=== PATIENT | female | born 1960 | race Caucasian/White ===

== ENCOUNTER → 2018-03-23 07:12 | Outpatient (CLI) | payer BC, SELFPAY | PROVIDERS: Visit Provider Physician Assistant | DX: M17.12 Unilateral primary osteoarthritis, left knee (principal) | CPT/HCPCS: 73721 ==

== ENCOUNTER 2021-09-15 12:46 | Outpatient (CLI) | payer BC, SELFPAY ==
--- NOTE | 2021-09-15 12:51 | BI_ITS ---
MAMMOGRAPHY - BILATERAL SCREENING REASON FOR EXAM: Female, 61 years old. Routine annual screening examination. PERTINENT HISTORY: Non-contributory. Remote left breast biopsy. TECHNIQUE: Digital bilateral breast reggie (3D mammographic acquisition) in the CC and MLO projections. 2-D mediolateral oblique (MLO) and craniocaudad (CC) views of both breasts were obtained. CAD: Full Field Digital Mammography with Computer Added Detection was performed. COMPARISON: Comparison is made with prior examination dated 11/16/2014. FINDINGS: Breast Composition: The breasts are almost entirely fatty. There are no dominant masses or suspicious calcifications. No other significant abnormalities are identified. There has been no significant change since the prior study. BI/SCRN MAMM (CAD)W/REGGIE BILAT IMPRESSION: Stable bilateral screening mammogram. Yearly follow-up mammogram recommended. (A) ASSESSMENT CATEGORY: BIRADS Category 1: Negative. A letter regarding these results will be sent to the patient by the facility within 30 days. Approximately 10% of breast cancers are not detected by mammography. A normal mammogram should not delay biopsy of a clinically suspicious abnormality. [id number] Electronically Signed: Kit Cortés MD at 14:33 EST ,
--- NOTE | 2021-09-15 13:31 | BD_ITS ---
STUDY: DUAL ENERGY X-RAY ABSORPTIOMETRY / DXA REASON FOR EXAM: Female, 61 years old. [id number]. The patient is postmenopausal. TECHNIQUE: Bone Mineral Density (BMD) measurements of lumbar spine and bilateral hips were obtained. COMPARISON: None. FINDINGS: Lumbar Spine (L1-L4): g/cm2 (0.844) / T-score (-1.8) / Z-score (-0.4) Findings are suggestive of osteopenia with a moderate fracture risk. Left Femur Total: g/cm2 (0.780) / T-score (-1.3) / Z-score (-0.3) Left Femoral Neck: g/cm2 (0.681) / T-score (-1.5) / Z-score (-0.2) Right Femur Total: g/cm2 (0.752) / T-score (-1.6) / Z-score (-0.6) Right Femoral Neck: g/cm2 (0.623) / T-score (-2.0) / Z-score (-0.7) BD/Dexa Bone Density Study IMPRESSION: The patient is considered osteopenic as outlined below according to World [employer] Organization (WHO) criteria with a moderate fracture risk. Reference Information: The T-score is the number of standard deviations above or below the standard which is normal for young adults at their peak bone mineral density. The World Health Organization (WHO) interprets the T-scores as follows: Above -1 Normal bone density Between -1 and -2.5 Osteopenia Equal to / or below -2.5 Osteoporosis As a practical clinical guideline, osteopenia may be graded as follows: Mild -1 through -1.5 Moderate -1.6 through -2.0 Severe -2.1 through -2.4 The Z-score is the number of standard deviations above or below age-matched controls. A Z-score of less than -1.5 would be considered abnormal. References: 1. NIH Osteoporosis and Related Bone Diseases www osteo.org 2. International Society for Clinical Densitometry www iscd.org 3. National Osteoporosis Foundation www nof.org Electronically Signed: Kit Cortés MD at 8:23 EST ,
== END 2021-09-15 23:59 | disposition home or self-care (01) ==
LOC: OPBD 12:47
PROVIDERS: PCP Internal Medicine; Visit Provider Internal Medicine
DX: Z12.31 Encounter for screening mammogram for malignant neoplasm of breast (principal); Z78.0 Asymptomatic menopausal state
CPT/HCPCS: 77063; 77067; 77080

== ENCOUNTER → 2022-08-17 | Outpatient (CLI) | payer BC, SELFPAY ==
--- NOTE | 2022-08-17 08:14 | EKG12_ITS ---
Test Reason : PRE OP Blood Pressure : / mmHG Vent. Rate : 075 BPM Atrial Rate : 075 BPM P-R Int : 164 ms QRS Dur : 084 ms QT Int : 390 ms P-R-T Axes : 051 002 045 degrees QTc Int : 435 ms Normal sinus rhythm Normal ECG Confirmed by ESTELA ROOT, MARIAA ([id number]), makeup editor CHEL WALLER ([id number]) on 08/18/2022 12:55:48 PM Referred By: BRAYDEN Confirmed By:MARIAA PALMER MD
[2022-08-17 09:36] LABS: Absolute Lymphocyte Count 1.39 X10^3/uL (0.83-4.51); Absolute Neutrophil Count 3.8 X10^3/uL (2.0-7.7); Basophil# 0.03 X10^3/uL; Basophil% 0.5 % (0-1); Eosinophil# 0.12 X10^3/uL; Hematocrit 38.6 % (37-47); Hemoglobin 12.6 g/dL (12.0-15.0); Lymphocyte # 1.39 X10^3/ul (0.83-4.51); Lymphocyte % 23.6 % (19-41); Mean Corp Hgb Conc 32.6 g/dL (32-36); Mean Corpuscular Hgb 32.1 pg (27.0-32.0); Mean Corpuscular Volume 98.5 fL (81-99); Mean Platelet Vol. 11.4 fl (6.2-12.0); Monocyte# 0.53 X10^3/uL; NRBC Flagged by Analyzer 0 % (0-5); Neutrophil # 3.79 X10^3/uL (2.7-7.7); Neutrophil % 64.6 % (47-70); Platelet Count 211 K/mm3 (150-450); RBC Distribution Width CV 11.6 % (11.6-14.6); RBC Distribution Width SD 42.1 fl (35.1-43.9); Red Blood Count 3.92 M/mm3 (4.2-5.4); White Blood Count 5.9 K/mm3 (4.4-11.0)
[2022-08-17 10:08] LABS: Anion Gap 7 (5-15); BUN 22 mg/dL (7-18); BUN/Creat Ratio 21.6 RATIO (10-20); Calcium,Total 8.6 mg/dL (8.5-10.1); Chloride 105 mmol/L (98-107); Creatinine, Serum 1.02 mg/dL (0.55-1.02); EST Glomerular Filtration Rate 58 mL/min (>60); Est Glom Filt Rate - Afr Amer 71 mL/min (>60); Glucose 82 mg/dL (74-106); Sodium Level 139 mmol/L (136-145)
== END | disposition home or self-care (01) ==
LOC: PSN 08:13
PROVIDERS: PCP Internal Medicine; Visit Provider Student in an Organized Health Care Education/Training Program
DX: Z01.818 Encounter for other preprocedural examination (principal); Z01.810 Encounter for preprocedural cardiovascular examination
CPT/HCPCS: 36415; 80048; 85025; 93005

== ENCOUNTER → 2022-09-05 | Outpatient (CLI) | payer BC, SELFPAY ==
--- NOTE | 2022-09-05 08:54 | US_ITS ---
STUDY: ABDOMINAL ULTRASOUND - RIGHT UPPER QUADRANT REASON FOR VISIT: Female, 62 years old PREOP, ELEVATED LFT''S TECHNIQUE: Ultrasound evaluation of the right upper quadrant was performed with real-time and static nuno-scale imaging. TECHNICAL QUALITY: Adequate. COMPARISON: None. FINDINGS: Liver: The liver measures 17.8 cm. There is increased echogenicity consistent with fatty infiltration. The bile ducts are within normal limits. There is hepatic color flow. The direction of portal flow is hepatopetal. There is no demonstrated mass lesion. Gallbladder: The patient is status post cholecystectomy. Common Bile Duct (C.B.D.): The common bile duct measures 7.3 mm. Pancreas: There is nonvisualization of the pancreas due to overlying bowel gas. Right Kidney: Normal size of the right kidney. The right kidney measures 8.7 cm x 5 cm x 3.5 cm. Normal renal cortex. The right cortex measures 1.0 cm. There is no demonstrated renal mass or cyst. There is no right hydronephrosis. US/Abdomen Limited IMPRESSION: Hepatomegaly and fatty infiltration of the liver. Electronically Signed: Kit Cortés MD at 11:06 EST ,
== END | disposition home or self-care (01) ==
LOC: US 08:51
PROVIDERS: PCP Internal Medicine; Referring Provider Internal Medicine; Visit Provider Internal Medicine
DX: R74.8 Abnormal levels of other serum enzymes (principal); R31.0 Gross hematuria
CPT/HCPCS: 76705

== ENCOUNTER → 2022-09-09 | Outpatient (CLI) | payer BC, SELFPAY ==
--- NOTE | 2022-09-09 07:56 | US_ITS ---
INDICATION: MICROSCOPIC HEMATURIA EXAMINATION: Ultrasound US Kidney(s) complete (eg, kidneys and bladder) TECHNIQUE: Woodward scale and color doppler images were obtained of the kidneys. COMPARISON: None. FINDINGS: RIGHT KIDNEY: The right kidney measures 9.4 x 4.5 x 3.7 cm. The renal cortex measures 1.4 cm.. There is no definite hydronephrosis. There are 2 small echogenic shadows in the mid pole and lower pole of right kidney measuring about 5 x 3 mm consistent with small stones. LEFT KIDNEY: The left kidney measures 12.2 x 4.9 x 5.4 cm. The renal cortex measures 1.7 mm.. There is mild prominence of the left pelvicalyceal system. There is a 6 mm echogenic shadow/stone in the midpole of the left kidney. URINARY BLADDER: The bladder is not well distended and has a calculated prevoid volume of 141 cc. US/Kidney and Bladder IMPRESSION: 1. Small bilateral renal stones. 2. Mild prominence of the left pelvicalyceal system 3. CT scan of the abdomen pelvis might be further value. Electronically Signed: Nick Ramos MD at 12:13 EST ,
== END | disposition home or self-care (01) ==
LOC: US 07:53
PROVIDERS: PCP Internal Medicine; Referring Provider Internal Medicine; Visit Provider Internal Medicine
DX: R74.8 Abnormal levels of other serum enzymes (principal); R31.0 Gross hematuria
CPT/HCPCS: 76770

== ENCOUNTER → 2023-06-12 | Outpatient (CLI) | payer OTHER, SELFPAY ==
--- NOTE | 2023-06-12 10:32 | MRI_ITS ---
MRI Abdomen w/ and w/out contrast 06/12/2023 11:07 AM COMPARISON: None CLINICAL HISTORY: hepatic lesion, clinical indication: liver lesion, and gt;1cm, US nondi, ATTENTINO LIVER TECHNIQUE: Multiplanar T1 and T2 weighted, diffusion and dynamic post-gadolinium images were obtained through the abdomen before and after administration of 18 cc of IV Clariscan. FINDINGS: Liver: 1.6 cm and a smaller 7 mm T2 hyperintense lesions in the hepatic dome demonstrate progressive nodular centripetal enhancement consistent with hemangioma. Gallbladder: Unremarkable Pancreas: Unremarkable Spleen: Unremarkable Adrenal Glands: Unremarkable Kidneys: Simple nonenhancing 4.1 cm cyst in the left kidney. GI Tract: Unremarkable Lymphadenopathy: Absent Reproductive: Unremarkable Bladder: Unremarkable Ascites: Absent Bones: No suspicious lesions MRI/MRI Abd WITH and W/O Contrast IMPRESSION: 1.6 cm and 0.7 cm hepatic hemangiomas in the dome of the liver. Electronically Signed: Rolando Reid MD at 23:11 EST ,
[2023-06-12 11:06] LABS: CREATININE FINGERSTICK 1.3 mg/dL (0.55-1.02)
== END | disposition home or self-care (01) ==
PROVIDERS: PCP Internal Medicine; Referring Provider Internal Medicine; Visit Provider Internal Medicine
DX: K76.9 Liver disease, unspecified (principal)
CPT/HCPCS: 74183; A9575

== ENCOUNTER → 2023-11-29 | Outpatient (CLI) | payer OTHER, SELFPAY ==
--- NOTE | 2023-11-29 09:26 | BI_ITS ---
MAMMOGRAPHY - BILATERAL SCREENING REASON FOR EXAM: Female, 63 years old. Routine annual screening examination. PERTINENT HISTORY: Non-contributory. Prior left breast needle biopsy. TECHNIQUE: Digital bilateral breast reggie (3D mammographic acquisition) in the CC and MLO projections. 2-D mediolateral oblique (MLO) and craniocaudad (CC) views of both breasts were obtained. CAD: Full Field Digital Mammography with Computer Added Detection was performed. COMPARISON: Comparison is made with prior study dated September 15, 2021. FINDINGS: Breast Composition: There are scattered areas of fibroglandular density. There are no dominant masses or suspicious calcifications. No other significant abnormalities are identified. There has been no significant change since the prior study. BI/SCRN MAMM (CAD)W/REGGIE BILAT IMPRESSION: Stable bilateral screening mammogram. Yearly follow-up mammogram recommended. (A) ASSESSMENT CATEGORY: BIRADS Category 1: Negative. A letter regarding these results will be sent to the patient by the facility within 30 days. Approximately 10% of breast cancers are not detected by mammography. A normal mammogram should not delay biopsy of a clinically suspicious abnormality. [id number] Electronically Signed: Kit Cortés MD at 10:53 EDT ,
--- NOTE | 2023-11-29 09:28 | BD_ITS ---
STUDY: DUAL ENERGY X-RAY ABSORPTIOMETRY / DXA REASON FOR EXAM: Female, 63 years old. 733.00OsteoporosisBONE DENSITY REASON FOR EXAM TECHNIQUE: Bone Mineral Density (BMD) measurements of lumbar spine and bilateral hips were obtained. COMPARISON: Comparison is made with prior study dated September 15, 2021. FINDINGS: Lumbar Spine (L1-L4): g/cm2 (0.771) / T-score (-2.2) / Z-score (-0.6) Findings are suggestive of osteopenia with a high fracture risk. Left Femur Total: g/cm2 (0.769) / T-score (-1.4) / Z-score (-0.3) Left Femoral Neck: g/cm2 (0.757) / T-score (-0.8) / Z-score (0.6) Right Femur Total: g/cm2 (0.721) / T-score (-1.8) / Z-score (-0.7) Right Femoral Neck: g/cm2 (0.706) / T-score (-1.3) / Z-score (0.1) The T-Scores on the most recent prior examination were: Lumbar Spine (L1-L4): There has been worsening of bone density since the previous examination. Left Femur Total: which represents a worsening of 1.4%. Right Femur Total: which represents a worsening of 4.1%. BD/Dexa Bone Density Study IMPRESSION: The patient is considered osteopenic as outlined below according to World [place] Organization (WHO) criteria with a high fracture risk. There has been worsening of bone density since the previous examination. Reference Information: The T-score is the number of standard deviations above or below the standard which is normal for young adults at their peak bone mineral density. The World Health Organization (WHO) interprets the T-scores as follows: Above -1 Normal bone density Between -1 and -2.5 Osteopenia Equal to / or below -2.5 Osteoporosis As a practical clinical guideline, osteopenia may be graded as follows: Mild -1 through -1.5 Moderate -1.6 through -2.0 Severe -2.1 through -2.4 The Z-score is the number of standard deviations above or below age-matched controls. A Z-score of less than -1.5 would be considered abnormal. References: 1. NIH Osteoporosis and Related Bone Diseases www osteo.org 2. International Society for Clinical Densitometry www iscd.org 3. National Osteoporosis Foundation www nof.org Electronically Signed: Kit Cortés MD at 9:55 EDT ,
== END | disposition home or self-care (01) ==
PROVIDERS: PCP Internal Medicine; Referring Provider Internal Medicine; Visit Provider Internal Medicine
DX: Z12.31 Encounter for screening mammogram for malignant neoplasm of breast (principal); Z78.0 Asymptomatic menopausal state
CPT/HCPCS: 77063; 77067; 77080

== ENCOUNTER → 2024-04-28 | Outpatient (CLI) | payer OTHER, SELFPAY ==
--- NOTE | 2024-04-28 08:59 | US_ITS ---
STUDY: ABDOMINAL ULTRASOUND - RIGHT UPPER QUADRANT; ELASTOGRAPHY REASON FOR VISIT: Female, 63 years old. Fatty infiltration of the liver. TECHNIQUE: Ultrasound evaluation of the right upper quadrant was performed with real-time and static nuno-scale imaging. Point quantification shear wave elastography was performed ([employer]). TECHNICAL QUALITY: Adequate. COMPARISON: Comparison is made with prior study dated September 05, 2022. FINDINGS: Liver: The liver measures 13.2 cm. There is mild increased echogenicity consistent with mild degree of fatty infiltration. The bile ducts are within normal limits. There is hepatic color flow. The direction of portal flow is hepatopetal. There is no demonstrated mass lesion. Median liver stiffness measured 6.5 kPa. Gallbladder: The patient is status post cholecystectomy. Common Bile Duct (C.B.D.): The common bile duct measures 4 mm. Pancreas: There is normal echogenicity of the visualized pancreas. There is no demonstrated pancreatic mass or cyst. Right Kidney: Normal size of the right kidney. The right kidney measures 9.2 cm x 4.8 cm x 4 cm. Normal renal cortex. The right cortex measures 1 cm. There is no demonstrated renal mass or cyst. There is no right hydronephrosis. US/ABD Limited w/ Elastography IMPRESSION: 1. Liver stiffness measures 6.5 kPa compatible with F2-F3 (Mild to moderate liver fibrosis) Metavir score. Electronically Signed: Kit Cortés MD at 15:30 EDT ,
== END | disposition home or self-care (01) ==
LOC: US 08:56
PROVIDERS: PCP Internal Medicine; Referring Provider Internal Medicine; Visit Provider Internal Medicine
DX: K76.0 Fatty (change of) liver, not elsewhere classified (principal)
CPT/HCPCS: 76705; 76981

== ENCOUNTER → 2025-01-08 | Outpatient (CLI) | payer OTHER, SELFPAY ==
--- NOTE | 2025-01-08 07:38 | BI_ITS ---
EXAM: SCRN MAMM (CAD)W/REGGIE BILAT DATE: 01/08/2025 CLINICAL HISTORY: F, Age 64 y/o , SCREENING No family history. History of prior left needle breast biopsy. BREAST CANCER RISK ASSESSMENT: Not assessed. TECHNIQUE: Bilateral screening digital breast tomosynthesis with 2D and 3D images. Computer aided detection. COMPARISON: Prior exam(s) dated November 29, 2023.. FINDINGS: TISSUE DENSITY: The breast tissue is composed of scattered areas of fibroglandular density. Bilateral Breast Mammographic Findings: No significant masses, calcifications or other abnormalities are identified. No suspicious masses, areas of developing architectural distortion, or suspicious calcifications. There has been no significant interval change. BI/SCRN MAMM (CAD)W/REGGIE BILAT IMPRESSION: Stable examination. OVERALL FINAL ASSESSMENT BI-RADS 1: NEGATIVE. RECOMMEND ANNUAL MAMMOGRAPHIC SCREENING. RECOMMENDATION: Routine annual follow-up in 1 Year A letter with findings and recommendations will be mailed to the patient. Reading Location: [place] [id number]
--- OUTSIDE RECORDS SUMMARY | 2025-01-08 07:40 | XMS RPT_ITS | CCD ---
Author Organization [facility] Care Team Providers Care Supervisor [employer] Name Role Phone Patricia Patino MD Unavailable [phone] John FERGUSON RAFAELA Unavailable Unavailable Unavailable Unavailable Patricia Patino MD Unavailable Brody Moreno LPNcy Unavailable Unavailable Chen Mcdonough Unavailable [phone] Radha Bains MA Unavailable Unavailable Jen Ann Unavailable Patricia Patino MD Attending Unavailable Patricia Patino MD Referring Unavailable Patricia Patino MD Consulting Unavailable Dr. Patricia Patino Primary Care Provider [phone] Dr. Yovanny Paez Attending Provider Dr. Alejandro Rodgers Referring Provider [phone] Unavailable Primary Care Provider Unavailabl e Mantejinderk [employer] MANAGER, Kristina Unavailable Unavailable PATRICIA PATINO Referring Unavailable Dr. Patricia Patino MD Primary Care Provider Dr. Patricia Patino MD Referring Provider [phone] Dr. Merlin Palacio MD Attending Provider [phone] Patricia Patino Referring Unavailable Patricia Patino Primary Care Unavailable Merlin Palacio Attending Unavailable BonePatricia cochran Referring Unavailable BonePatricia cochran Primary Care Unavailable Merlin Palacio Attending Unavailable Patricia Patino Referring Unavailable BonePatricia cochran Primary Care Unavailable BonePatricia cochran Attending Unavailable BonePatricia cochran Referring Unavailable BonezzPatricia navarrete Primary Care Unavailable BonezzPatricia navarrete Attending Unavailable Allergies Allergy Classification Reported Allergen(s) Allergy Type Date of Onset Reaction(s) Facility (20 sources) iron sucrose; Translations: [Venofer *HEMATOPOIETIC AGENTS*] Drug Allergy Difficulty breathing, Chest pain, Shortness of breath [facility] Work Phone: (20 sources) Codeine/Codeine Derivatives; Translations: [Codeine/Codein e Derivatives] Allergy to substance (finding) [facility]; [facility] Work Phone: (20 sources) Morphine Derivatives; Translations: [Morphine Derivatives] Allergy to substance (finding) [facility]; [facility] Work Phone: (5 sources) Codeine Drug Allergy 04-05-20 [facility] (5 sources) Morphine Drug Allergy 04-05-20 [facility] (6 sources) iron sucrose complex; Translations: [iron sucrose complex] Allergy to substance 04-05-20 Chest tightness [facility] (1 source) ALLERGIES NOT ON FILE; Translations: [ALLERGIES NOT ON FILE] Propensity to adverse reactions (disorder) [facility] Repository (1 source) Iron Drug Allergy 12-31-19 Shortness of breath [facility] (1 source) Codeine Drug Allergy 12-31-19 [facility] Repository (1 source) Iron Drug Allergy 12-31-19 [facility] Repository (1 source) Morphine Drug Allergy 12-31-19 [facility] Repository Medications Current Medications Medication Drug Class(es) Dates Sig (Normalized) Sig (Original) folic acid 1 mg oral tablet (20 sources) Start: 10-21-2024 take 1 tablet by mouth once daily Folic Acid 1 mg tablet Active 1 mg PO daily October 21, 2024 12:00am Start: 04-17-2021 take 1 tablet by bay th once daily Folic Acid 1 MG Oral Tablet 1 (one) Tablet qd for 0 days Quantity: 30 {Tablet} Refills: 0 Ordered: 11-Jun-2021 Jacqueline ROOT, Patricia Patino MD, Patricia Frazier Start : 17-Apr-2021 Active Semaglutide (1 source) Start: 10-21-2024 Semaglutide 0. 25 mg or 0.5 mg (2 mg/3 mL) pen injector Active 0.25 mg SC EVERY WEEK October 21, 2024 12:00am for 4 weeks Completed/Discontinued Medications Medication Drug Class(es) Dates Sig (Normalized) Sig (Original) 8 hr acetaminophen 650 mg extended release oral tablet (20 sources) Start: 04-17-2021 take 2 tablets by mouth once daily at bedtime as needed 8 Hour Arthritis Pain Reliever 650 MG Oral Tablet Extended Release 2 (two) Tablet qhs at night prn for 0 days Quantity: 60 {Tablet} Refills: 0 Ordered: 11-Jun-2021 Patricia Patino MD, MD, Dana M Start : 17-Apr-2021 Active Start: 04-05-2019 End: 12-30-2024 take 1 capsule by mouth every six hours Acetaminophen (Tylenol) 325 mg capsule Discontinued 325 mg PO EVERY 6 HOURS April 05, 2019 12:00am December 30, 2024 3:49pm BD Insulin Syringe 1 mL 25 x 1 miscellaneous syringe, empty disposable (18 sources) Start: 06-23-2021 BD Insulin Syr alirio 1 mL 25 x 1 miscellaneous syringe, empty disposable 1 (one) Each as directed with Vtiamin B12 injection for 0 days Quantity: 1 {Each} Refills: 3 Ordered: 23-Jun-2021 Radha Bains MA Start : 23-Jun-2021 Active BD Insulin Syringe 25G X 1 1 ML Miscellaneous (5 sources) Start: 06-23-2021 BD Insulin Syr alirio 25G X 1 1 ML Miscellaneous 1 (one) Each as directed with Vtiamin B12 injection for 0 days Quantity: 1 {Each} Refills: 3 Ordered: 23-Jun-2021 Patricia Patino MD, MD, Dana M Start : 23-Jun-2021 Active biotin 10 mg oral tablet (18 sources) take 1 mg by mouth once daily biotin 10 mg oral tablet daily (10 mg) Active Comments: 4 a day of natures [employer] biotin gummies Comment on above: 4 a day of natures w almtray biotin gummies Caltrate 600-D Plus Minerals 600 mg calcium- 800 unit-50 mg oral tablet (18 sources) Caltrate 600-D P la Minerals 600 mg calcium- 800 unit-50 mg oral tablet daily (600 mg calcium- 800 unit-5) Active ferrous sulfate 325 mg oral tablet (20 sources) Start: 06-11-2021 take 1 tablet by mouth twice daily Ferrous Sulfate 325 (65 Fe) MG Oral Tablet 1 (one) Tablet bid for 0 days Quantity: 60 {Tablet} Refills: 0 Ordered: 11-Jun-2021 Patricia Patino MD, MD, Dana M Start : 11-Jun-2021 Active Start: 04-05-2019 take 1 tablet by bay once daily Ferrous Sulfate 325 mg (65 mg iron) tablet Active 325 mg PO DAILY April 05, 2019 12:00am ibuprofen 600 mg oral tablet (20 sources) Nonsteroidal Anti-inflammatory Drug Start: 04-17-2021 take 1 tablet by mouth every six hours as needed Ibuprofen 600 MG Oral Tablet 1 (one) Tablet q 6 hours prn for 0 days Quantity: 30 {Tablet} Refills: 0 Ordered: 11-Jun-2021 Jacqueline ROOT, Patricia Riggins MD Start : 17-Apr-2021 Active Start: 04-05-2019 take 200 mg by mouth every six hours Ibuprofen Active 200 MG PO EVERY 6 HOURS April 04, 2019 11:00pm Start: 04-05-2019 End: 12-30-2024 take 2 tablets by mouth every six hours Ibuprofen 100 mg tablet Discontinued 200 mg PO EVERY 6 HOURS April 05, 2019 12:00am December 30, 2024 3:49pm edehpbr-wpez-vqznl-oreg-capr yl 100 mg-150 mg- 50 mg-150 mg oral capsule (18 sources) jpvxmbv-krsv-teh au-xrxs-xxaypv 100 mg-150 mg- 50 mg-150 mg oral capsule daily (100 mg-150 mg- 50 mg-150) Active vitamin b12 1 mg/ml injectab le solution (20 sources) Vitamin B12 Star t: 07-08-11 cyanocobalamin (vit B-12) 1, 000 mcg/mL injection solution 1 (one) Milliliter q monthly for 90 days Quantity: 3 {Milliliter} Refills: 3 Ordered: 30-Jan-2023 Patricia Patino MD, MD, Dana M Start : 30-Jan-2023 Active Start: 11-13-2021 cyanocobalamin (vit B-12) 1,000 mcg/mL injection solution 1 (one) Milliliter q monthly for 0 days Quantity: 3 {Milliliter} Refills: 3 Ordered: 13-Nov-2021 Jacqueline ROOT, Patricia Riggins MD Start : 13-Nov-2021 Active Start: 06-23-2021 Cyanocobalamin 1000 MCG/ML Injection Solution 1 (one) Milliliter every 2 weeks for 4 weeks than every month for 90 days Refills: 3 Ordered: 23-Jun-2021 Patricia Patino MD, MD, Dana M Start : 23-Jun-2021 Active Vitamin D3 25 mcg (1,000 uni t) oral tablet (18 sources) Vitamin D3 25 mc g (1,000 unit) oral tablet 3 daily (25 mcg (1,000 uni) Active Problems Active Problems Problem Classification Problem Date Documented Da te Episodic/Chronic Calculus of urinary tract (20 sources) History of calculus of kidney; Translations: [History of kidney stones] 06-11-2021 Episodic Deficiency and other anemia (20 sources) Anemia; Translations: [Anemia] 06-11-2021 Episodic Deficiency and other anemia (20 sources) Iron deficiency anemia; Translations: [Iron deficiency anemia] 06-12-2021 Episodic Comment on above: think related to the gastric bypass. ben with high homocysteine probably from low vitami B absorption she has had for . she saw Tod and had iron infusion was 8.8 year ago back on iron this year 11.6 Genitourinary symptoms and ill-defined conditions (20 sources) Abnormal urine; Translations: [Abnormal urine] 07-03-2022 Episodic Comment on above: not usually have denise lcut out caffiene increase water and willrecheck if stillup than us. stillthere needto wo rkup Nutritional deficiencies (20 sources) Cobalamin deficiency; Translations: [Vitamin B12 deficiency] 06-23-2021 Episodic Other and unspecified benign neoplasm (2 sources) Hemangioma of liver; Translations: [Hemangioma of intra-abdominal structures] 12-30-2024 Episodic Other and unspecified benign neoplasm (1 source) Hemangioma of intra-abdominal structures; Translations: [Hemangioma of intra-abdominal structures] Onset: 12-31-2024 Episodic Other bone disease and musculoskeletal deformities (20 sources) Osteopenia; Translations: [Osteopenia] 09-19-2021 Episodic Comment on above: 2-22 BD mid osteopen ia. talk about right now not want to do meds at this point. recheck 2 years as much wlking as foot will allow. add calcuim. told vibratory whole body Other ear and sense organ disorders (20 sources) Tinnitus; Translations: [Tinnitus] 06-11-2021 Episodic Comment on above: years, bilateral hig h frequency not bother her Other gastrointestinal disorders (20 sources) History of bypass of stomach; Translations: [S/P gastric bypass] 06-11-2021 Episodic Other liver diseases (12 sources) Steatosis of liver; Translations: [Fatty liver] 04-30-2023 Chronic Other liver diseases (10 sources) Lesion of liver; Translations: [Hepatic lesion] 05-18-2023 Chronic Other liver diseases (3 sources) Fatty (change of) liver, not elsewhere classified; Translations: [Metabolic dysfunction-associat ed steatotic liver disease (MASLD)] Onset: 12-31-2024 12-30-2024 Chronic Other liver diseases (20 sources) Elevated liver enzymes level; Translations: [Elevated liver enzymes] 07-03-2022 Episodic Other nutritional; endocrine; and metabolic disorders (20 sources) Body mass index 30+ - obesity; Translations: [BMI 34.0-34.9,adult] 06-11-2021 Chronic Other nutritional; endocrine; and metabolic disorders (20 sources) Obesity; Translations: [Obesity] 06-11-2021 Chronic Other screening for suspected conditions (not mental disorders or infectious disease) (20 sources) Homocystinemia; Translations: [Elevated homocysteine] Onset: 12-09-2024 06-11-2021 Episodic Comment on above: 79 high will do cologuard Residual codes; unclassified (20 sources) FH: Cardiovascular disease; Translations: [Family history of cardiovascular disease] 06-11-2021 Episodic Comment on above: dad 41 yo stress 201 5 dad 41 yo stress 201 5 CCTA 0 05-14 Residual codes; unclassified (20 sources) Postmenopausal state; Translations: [Postmenopausal (Renamed from Postmenopausal status)] 06-11-2021 Episodic Residual codes; unclassified (20 sources) Non-smoker; Translations: [Non-smoker] 08-31-2022 Episodic Spondylosis; intervertebral disc disorders; other back problems (20 sources) Chronic back pain ; Translations: [Back pain, chronic] 06-11-2021 Episodic Unclassified (20 sources) Unclassified (8 sources) Well woman exam (Renamed from Encounter for well woman exam) Unclassified (8 sources) BMI 34.0-34.9,adult Unclassified (8 sources) Family history of cardiovascular disease Unclassified (8 sources) S/P gastric bypass Unclassified (8 sources) History of kidney stones Unclassified (8 sources) Encounter for screening mammogram for breast cancer (Renamed from Encounter for screening mammogram for malignant neoplasm of breast) Unclassified (8 sources) Postmenopausal (Renamed from Postmenopausal status) Unclassified (8 sources) Elevated homocysteine Past or Other Problems Problem Classification Problem Date Documented Da te Episodic/Chronic Residual codes; unclassified (2 sources) Family history of ischemic heart disease and other diseases of the circulatory system; Translations: [Family history of ischemic heart disease and other diseases of the circulatory system] Onset: 05-15-2023 Episodic Results Test Name Value Interpretation Reference Range Facility Gastroenterology Visit Repor ton 12-30-2024 Gastroenterology Visit Report [facility] [address] [place] [address] OFFICE VISIT Date of Service: 12/30/24 MR#: [id number] Acct: [id number] Name: BENNY BRADLEY Rep #: [id number] : 1960 Provider: Dr. Merlin lopez MD Age/Sex: 64/F [place] [facility] [place]: Signed Intake Vital Signs 06/17/21 16:25 12/30/24 15:11 Height 5 ft 9 in 5 ft 9 in Weight: 142 lb BMI 20.9 BP 115/70 Blood Pressure Location Rt brachial Position Sitting Pulse 70 Pulse Oximetry (%) 96 Oxygen Delivery Method room air Intake Visit Reasons: ELEVATED LFT'S Allergies iron (From Venofer) Allergy (Intermediate, Verified 12/30/24 14:53) Shortness of breath codeine Allergy (Verified 12/30/24 14:53) Hives iron sucrose complex (From Venofer) Allergy (Verified 12/30/24 14:53) Chest tightness morphine Allergy (Verified 12/30/24 14:53) Hives Medications ???Medication ???Instructions ???Recorded ???Confirmed ???Type ferrous sulfate 325 mg (65 mg 325 mg PO DAILY 04/05/19 12/30/24 History iron) tablet folic acid 1 mg tablet 1 mg PO QDAY 10/21/24 12/30/24 His tory semaglutide 0.25 mg or 0.5 mg (2 0.25 mg subcut QWEEK 10/21/2412/21 0 History mg/3 mL) subcutaneous pen injector [facility] Medical History (Updated 12/30/24 @ 16:[address] Merlin Palacio MD) Liver hemangioma Fatty liver B12 deficiency Vitamin D insufficiency Iron deficiency anemia History of kidney stones Tinnitus Elevated homocysteine Surgical History History of lithotripsy History of hysterectomy History of gastric bypass History of cholecystectomy Family History Other Diabetes Heart disease Rheumatoid arthritis Thyroid disorder Social History Smoking Status: Never smoker alcohol intake: never HPI HPI Details: BENNY BRADLEY, is a 64 F who presents to the office today for consult for elevated LFTS. US abd/ elastography 10.7.24- Liver measures 13.2cm, Stiffness 6.5 kPa 12/31/2024: First visit referred by PCP Dr. Patino for elevated liver chemistry. 1 liver test available to review which shows AST 53, ALT 56 rest liver chemistry normal limit in December 09, 2024. Patient has also had her liver test have been abnormal since 2022 and AST ALT are better. She had liver ultrasound in 2022 which was done for abnormal LFT. No other specific symptoms related to hepatobiliary/GI system including abdominal pain, nausea, vomiting alteration in bowel habit fever or fatigue or pruritus. Patient other tests which shows cholesterol panel A1c 4.6 in November 2024. TSH and uric acid normal. Vitamin D 25-hydroxy 33 low normal. Family history: Her brother has RA and thyroid disease. Her mother and sister also has thyroid disease. Denies other autoimmune condition in first-degree family directive. Social history: Occasional drinking alcohol probably once a month when she was a teenager. Never smoked. No history of substance use. Surgical history: Had Renato-en-Y gastric bypass more than 20 years. She gained back weight therefore currently on semaglutide. History of bilateral nephrectomy ROS Const Constitutional: No fever(s), decreased energy, weakness or weight change ENT ENT: No dizziness/vertigo, nosebleed/epistaxis or tongue swelling Resp Respiratory: No shortness of breath or wheezing Cardio Cardiology: No chest pain at rest or dyspnea on exertion Gastro GI: No coffee ground emesis, Blood in stool or Black,tarry stools Genitourinary-Female: No difficulty urinating or burning urination Musc Musculoskeletal: No limited range of motion or muscle weakness Skin Skin: Positive for dry skin; No rash Neuro Neurology: No abnormal movements, behavioral changes, weakness or lack of coordination Psych Psychiatric: No behavioral changes, No hyperactivity and No inattentiveness Endo Endocrine: No increased thirst/drinking, increased hunger or weight change Aller/Imm Allergy/Immunologic: No tongue swelling or wheezing Shankar/Lymp Hematologic/Lymphatic: No easy bleeding or easy bruising Exam Const General: cooperative, no acute distress and well developed Nutritional Appearance: average body habitus Orientation: alert, awake and oriented x3 Other: BMI 20.9 kg/m??? HENMT Head: normocephalic and atraumatic Nose: external nose normal Face and sinus: normal facial exam Mouth: moist mucous membranes Eyes Pupils: PERRL EOM: EOM intact bilaterally Neck Neck: normal visual inspection, no meningeal signs and trachea midline Carotids: no bruits Chest Chest palpation inspection: normal inspection of the chest Resp Effort Inspection: normal respiratory effort and symmetri (more content not included)... Normal [facility] ABD Limited w/ Elastographyo n 04-28-2024 ABD Limited w/ Elastography [facility] [address] [place] [address] ABD Limited w/ Elastography MR#: [id number] Acct: [id number] Name: BENNY BRADLEY Rep #: [id number] : 1960 F 63 From: Kit bloom MD PCP: Dr. Patricia Patino MD Status: REG CLI Study: ABD Limited w/ Elastography Date of Exam: 02/12 Exam# [id number] Ordering Dr: Patricia Patino MD [id number] STUDY: ABDOMINAL ULTRASOUND - RIGHT UPPER QUADRANT; ELASTOGRAPHY REASON FOR VISIT: Female, 63 years old. Fatty infiltration of the liver. TECHNIQUE: Ultrasound evaluation of the right upper quadrant was performed with real-time and static woodward-scale imaging. Point quantification shear wave elastography was performed ([employer]). TECHNICAL QUALITY: Adequate. COMPARISON: Comparison is made with prior study dated September 05, 2022. FINDINGS: Liver: The liver measures 13.2 cm. There is mild increased echogenicity consistent with mild degree of fatty infiltration. The bile ducts are within normal limits. There is hepatic color flow. The direction of portal flow is hepatopetal. There is no demonstrated mass lesion. Median liver stiffness measured 6.5 kPa. Gallbladder: The patient is status post cholecystectomy. Common Bile Duct (C.B.D.): The common bile duct measures 4 mm. Pancreas: There is normal echogenicity of the visualized pancreas. There is no demonstrated pancreatic mass or cyst. Right Kidney: Normal size of the right kidney. The right kidney measures 9.2 cm x 4.8 cm x 4 cm. Normal renal cortex. The right cortex measures 1 cm. There is no demonstrated renal mass or cyst. There is no right hydronephrosis. US/ABD Limited w/ Elastography IMPRESSION: 1. Liver stiffness measures 6.5 kPa compatible with F2-F3 (Mild to moderate liver fibrosis) Metavir score. Electronically Signed: Kit Cortés MD at 15:30 EDT , CC: Dr. Patricia Patino MD Electric [employer] As[employer]er [employer] Tester: Signed Normal [facility] Basophil percentageOrdered B y: Patricia Patino on 06-12-2023 Creatinine [Mass/Vol] 1.3 mg/dL 0.55-1.02 [facility] Laboratory - Chemistry and C hemistry - challengeOrdered By: Patricia Patino on 06-12-2023 GFR/1.73 sq M.predicted among non-blacks MDRD (S/P/Bld) [Vol rate/Area] 45.0000 mL/min/{1.73_m2} >60 [facility] CT for calcium scoring WO co ntrast and CTA W contrast IV Heart and coronary arterieson 05-17-2023 1. Small paraesophag eal hernia amidst multiple gastric clips/staple line. 2. 11 mm hepatic lucency. See below. 3. Coronary artery calcium score of 0*. *Coronary artery calcium scoring may be helpful in predicting the risk for future coronary heart disease events. According to the [place] [employer] Clinical Expert Consensus Task Force, such testing provides important prognostic information in patients with more than one coronary heart disease risk factor. The coronary artery calcium score correlates with the annual risk of a non-fatal myocardial infarction or coronary heart disease . Coronary artery score Annual Risk 0-99 0.4% 100-399 1.3% >400 2.4% These three breakpoints correspond to lower, intermediate and high risk states for future coronary events. Such information should be used, along with appropriate clinical judgment, to make decisions regarding the intensity of risk factor management strategies to treat blood lipids and to modify other non-lipid coronary risk factors. Reference: Herndon P et al. Circulation. 2007; 115:402-426 MACRO: Incidental Finding: There is a hypodense lesion measuring 10-15 mm within the liver with indeterminate/suspicious imaging features. (-YCF-) Instructions: Further prompt evaluation with outpatient liver MRI is recommended. (Management of Incidental Liver Lesions on CT: A White Paper of the ACR Incidental Findings Committee. J Am Lucie Radiol. 2017;14(11):8737-3270.) [email or web address].[email or web address] Signed by: Yannick Hughes 05/17/2023 7:06 AM Dictation workstation: [id number] [facility] Interpreted By: Yannick Hughes, STUDY: CT CARDIAC SCORING WO IV CONTRAST; 05/15/2023 8:35 am INDICATION: Signs/Symptoms:SCREENING COMPARISON: None. ACCESSION NUMBER(S): [id number] ORDERING CLINICIAN: PATRICIA PATINO TECHNIQUE: Using prospective ECG gating, CT scan of the coronary arteries was performed without intravenous contrast. Coronary calcium scoring was performed according to the method of Agatston. FINDINGS: The calcium score in the coronary arteries is as follows: LM 0 LAD 0 LCx 0 RCA 0 Total 0 The visualized mid/lower ascending thoracic aorta measures 3.8 cm in diameter. The heart is normal in size. No pericardial effusion is present. No gross evidence of mediastinal or hilar lymphadenopathy or masses is identified. The visualized segments of the lungs are normally expanded. 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 The posterior dome of the right lobe of the liver has an 11 mm lucency. [facility] Yannick Hughes MD - 05/17/2023 Interpreted By: Yannick Hughes, STUDY: CT CARDIAC SCORING WO IV CONTRAST; 05/15/2023 8:35 am INDICATION: Signs/Symptoms:SCREENING COMPARISON: None. ACCESSION NUMBER(S): [id number] ORDERING CLINICIAN: PATRICIA PATINO TECHNIQUE: Using prospective ECG gating, CT scan of the coronary arteries was performed without intravenous contrast. Coronary calcium scoring was performed according to the method of Agatston. FINDINGS: The calcium score in the coronary arteries is as follows: LM 0 LAD 0 LCx 0 RCA 0 Total 0 The visualized mid/lower ascending thoracic aorta measures 3.8 cm in diameter. The heart is normal in size. No pericardial effusion is present. No gross evidence of mediastinal or hilar lymphadenopathy or masses is identified. The visualized segments of the lungs are normally expanded. 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 The posterior dome of the right lobe of the liver has an 11 mm lucency. IMPRESSION: 1. Small paraesophageal hernia amidst multiple gastric clips/staple line. 2. 11 mm hepatic lucency. See below. 3. Coronary artery calcium score of 0*. *Coronary artery calcium scoring may be helpful in predicting the risk for future coronary heart disease events. According to the [place] [employer] Clinical Expert Consensus Task Force, such testing provides important prognostic information in patients with more than one coronary heart disease risk factor. The coronary artery calcium score correlates with the annual risk of a non-fatal myocardial infarction or coronary heart disease . Coronary artery score Annual Risk 0-99 0.4% 100-399 1.3% >400 2.4% These three breakpoints correspond to lower, intermediate and high risk states for future coronary events. Such information should be used, along with appropriate clinical judgment, to make decisions regarding the intensity of risk factor management strategies to treat blood lipids and to modify other non-lipid coronary risk factors. Reference: Herndon P et al. Circulation. 2007; 115:402-426 MACRO: Incidental Finding: There is a hypodense lesion measuring 10-15 mm within the liver with indeterminate/suspicious imaging features. (-YCF-) Instructions: Further prompt evaluation with outpatient liver MRI is recommended. (Management of Incidental Liver Lesions on CT: A White Paper of the ACR Incidental Findings Committee. J Am Lucie Radiol. 2017;14(11):8105-1246.) LIVER.ACR.IF.4 Signed by: Yannick Hughes 05/17/2023 7:06 AM Dictation workstation: [id number] [facility] Work Phone: CT for calcium scoring WO co ntrast and CTA W contrast IV Heart and coronary arteriesOrdered By: Yannick Hughes on 05-17-2023 [facility] Work Phone: CT CARDIAC SCORING WO IV CON TRASTon 05-15-2023 CT CARDIAC SCORING WO IV CONTRAST Interpreted By: Yannick Hughes, STUDY: CT CARDIAC SCORING WO IV CONTRAST; 05/15/2023 8:35 am INDICATION: Signs/Symptoms:SCREENING COMPARISON: None. ACCESSION NUMBER(S): [id number] ORDERING CLINICIAN: PATRICIA PATINO TECHNIQUE: Using prospective ECG gating, CT scan of the coronary arteries was performed without intravenous contrast. Coronary calcium scoring was performed according to the method of Agatston. FINDINGS: The calcium score in the coronary arteries is as follows: LM 0 LAD 0 LCx 0 RCA 0 Total 0 The visualized mid/lower ascending thoracic aorta measures 3.8 cm in diameter. The heart is normal in size. No pericardial effusion is present. No gross evidence of mediastinal or hilar lymphadenopathy or masses is identified. The visualized segments of the lungs are normally expanded. 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 The posterior dome of the right lobe of the liver has an 11 mm lucency. IMPRESSION: 1. Small paraesophageal hernia amidst multiple gastric clips/staple line. 2. 11 mm hepatic lucency. See below. 3. Coronary artery calcium score of 0*. *Coronary artery calcium scoring may be helpful in predicting the risk for future coronary heart disease events. According to the [place] [employer] Clinical Expert Consensus Task Force, such testing provides important prognostic information in patients with more than one coronary heart disease risk factor. The coronary artery calcium score correlates with the annual risk of a non-fatal myocardial infarction or coronary heart disease . Coronary artery score Annual Risk 0-99 0.4% 100-399 1.3% >400 2.4% These three breakpoints correspond to lower, intermediate and high risk states for future coronary events. Such information should be used, along with appropriate clinical judgment, to make decisions regarding the intensity of risk factor management strategies to treat blood lipids and to modify other non-lipid coronary risk factors. Reference: Herndon P et al. Circulation. 2007; 115:402-426 MACRO: Incidental Finding: There is a hypodense lesion measuring 10-15 mm within the liver with indeterminate/suspicious imaging features. (-YCF-) Instructions: Further prompt evaluation with outpatient liver MRI is recommended. (Management of Incidental Liver Lesions on CT: A White Paper of the ACR Incidental Findings Committee. J Am Lucie Radiol. 2017;14(11):1936-2402.) LIVER.ACR.IF.4 Signed by: Yannick Hughes 05/17/2023 7:06 AM Dictation workstation: [id number] [facility] CT for calcium scoring WO co ntrast and CTA W contrast IV Heart and coronary arterieson 05-15-2023 Radiology Study observation (narrative) [facility] Work Phone: METABOLIC PANEL, COMPREHENSI VE ([id number])Ordered By: Back Hanger on 04-27-2023 Albumin [Mass/Vol] 4.0 g/dL Normal 3.9-4.9 [facility]; [facility] Work Phone: Comment on above: PERFORMED BY: TorqBak6370 Matias RoadDublin [place] [id number]; fu 10-9 DB Albumin/Globulin [Mass ratio] 1.6 {ratio} Normal 1.2-2.2 [facility]; [facility] Work Phone: Comment on above: PERFORMED BY: TorqBak6[address] RoadDublin [place] [id number]; fu 10-9 DB ALP [Catalytic activity/Vol] 110 U/L Normal 44-121 [facility]; [facility] Work Phone: Comment on above: PERFORMED BY: TorqBak6[address] RoadDublin [place] [id number]; fu 10-9 DB ALT [Catalytic activity/Vol] 43 U/L Abnormal 0-32 [facility]; [facility] Work Phone: Comment on above: PERFORMED BY: TorqBak6[address]Dublin [place] [id number]; fu 10-9 DB AST [Catalytic activity/Vol] 42 U/L Abnormal 0-40 [facility]; [facility] Work Phone: Comment on above: PERFORMED BY: TorqBak6[address] RoadDublin [place] [id number]; fu 10-9 DB Bilirubin [Mass/Vol] 0.4 mg/dL Normal 0.0-1.2 Comp rehensive Internal Medicine; [facility] Work Phone: Comment on above: PERFORMED BY: TorqBak6[address] RoadDuin [place] [id number]; fu 10-9 DB Calcium [Mass/Vol] 8.9 mg/dL Normal 8.7-10.3 [facility]; [facility] Work Phone: Comment on above: PERFORMED BY: TorqBak6[address] RoadDublin [place] [id number]; fu 10-9 DB Chloride [Moles/Vol] 104 mmol/L Normal 96-106 Comp rehensive [facility]; [facility] Work Phone: Comment on above: PERFORMED BY: Althea Systemslin6[address] RoadDublin [place] [id number]; fu 10-9 DB CO2 [Moles/Vol] 25 mmol/L Normal 20-29 Comprehen sive Internal [facility]; [facility] Work Phone: Comment on above: PERFORMED BY: [facility] juan Kcmwub0574 Matias RoadDublin [place] [id number]; fu 10-9 DB Creatinine [Mass/Vol] 1.01 mg/dL Abnormal 0.57-1.00 [facility]; [facility] Work Phone: Comment on above: PERFORMED BY: [facility] [employer] Ltd6370 Matias RoadRainKingblin [place] [id number]; fu 10-9 DB GFR/1.73 sq M.predicted among non-blacks MDRD (S/P/Bld) [Vol rate/Area] 63 mL/min/{1.73_m2} Normal Comprehensiv e [facility]; [facility] Work Phone: Comment on above: PERFORMED BY: TorqBak6[address]Dublin [place] [id number]; fu 10-9 DB Globulin (S) [Mass/Vol] 2.5 g/dL Normal 1.5-4.5 [facility]; [facility] Work Phone: Comment on above: PERFORMED BY: [facility] [employer] Nwxnaj0562 Matias RoadDublin [place] [id number]; fu 10-9 DB Glucose [Mass/Vol] 85 mg/dL Normal 70-99 Compre [facility] Internal [facility]; [facility] Work Phone: Comment on above: PERFORMED BY: [facility] [facility] juan Boeqla6075 [address] RoadDublin [place] [id number]; fu 10-9 DB Potassium [Moles/Vol] 4.8 mmol/L Normal 3.5-5.2 [facility]; [facility] Work Phone: Comment on above: PERFORMED BY: [facility] [employer] Pmzzvs4949 Matias RoadDublin [place] [id number]; fu 10-9 DB Protein [Mass/Vol] 6.5 g/dL Normal 6.0-8.5 [facility] Internal Medicine; [facility] Work Phone: Comment on above: PERFORMED BY: TorqBak6370 FeedbooksHighsmith-[facility] [id number]; fu 10-9 DB Sodium [Moles/Vol] 142 mmol/L Normal 134-144 [facility] Internal [facility]; [facility] Work Phone: Comment on above: PERFORMED BY: popexpert70 Matiasei TechnologiesHighsmith-Rainey [facility] Hospital [id number]; fu 10-9 DB Urea nitrogen [Mass/Vol] 12 mg/dL Normal 8-27 [facility]; [facility] Work Phone: Comment on above: PERFORMED BY: TorqBak[address] [facility] [id number]; fu 10-9 DB Urea nitrogen/Creatinine [Mass ratio] 12 mg/mg Normal 12-28 [facility]; [facility] Work Phone: Comment on above: PERFORMED BY: popexpert70 [facility] [id number]; fu 10-9 DB Absolute lymphocyte countOrd ered By: Dr. Rodgers on 08-17-2022 Lymphocytes Auto (Unsp spec) [#/Vol] 1.39 10*3/uL 0.83-4.51 [facility] Basophil percentageOrdered B y: Dr. Rodgers on 08-17-2022 Basophils/100 WBC (Bld) 0.5 % 0-1 [facility] Chloride [Moles/Vol] 105 mmol/L 98-107 [facility] Eosinophils/100 WBC (Bld) 2.0 % 0-5 [facility] Glucose [Mass/Vol] 82 mg/dL 74-106 [facility] Neutrophils (Bld) [#/Vol] 3.8 10*3/uL 2.0-7.7 [facility] Neutrophils/100 WBC (Bld) 64.6 % 47-70 [facility] Potassium [Moles/Vol] 4.0 mmol/L 3.5-5.1 [facility] Sodium [Moles/Vol] 139 mmol/L 136-145 [facility] WBC (Bld) [#/Vol] 5.9 10*3/uL 4.4-11.0 [facility] Blood erythrocytes count (nu mber/volume)Ordered By: Dr. Rodgers on 08-17-2022 RBC (Bld) [#/Vol] 3.92 10*6/uL 4.2-5.4 [facility] Blood hemoglobin measurement (mass/volume)Ordered By: Dr. Rodgers on 08-17-2022 Hemoglobin (Bld) [Mass/Vol] 12.6 g/dL 12.0-15.0 [facility] Blood lymphocytes/100 leukoc ytesOrdered By: Dr. Rogders on 08-17-2022 Lymphocytes/100 WBC (Bld) 23.6 % 19-41 [facility] Blood monocytes/100 leukocyt esOrdered By: Dr. Rodgers on 08-17-2022 Monocytes/100 WBC (Bld) 9.0 % 0-10 [facility] Blood platelet mean volumeOr dered By: Dr. Rodgers on 08-17-2022 Platelet mean volume (Bld) [Entitic vol] 11.4 fL 6.2-12.0 [facility] Determination of erythrocyte mean corpuscular volume (MCV)Ordered By: Dr. Rodgers on 08-17-2022 MCV (RBC) [Entitic vol] 98.5 fL 81-99 [facility] Hematocrit Auto (Bld) [Volum e fraction]Ordered By: Dr. Rodgers on 08-17-2022 Hematocrit (Bld) [Volume fraction] 38.6 % 37-47 [facility] Laboratory - Chemistry and C hemistry - challengeOrdered By: Dr. Rodgers on 08-17-2022 CO2 [Moles/Vol] 27.0 mmol/L 21.0-32.0 [facility] Urea nitrogen/Creatinine [Mass ratio] 21.6 mg/mg 10-20 [facility] Laboratory - Hematology and Cell countsOrdered By: Dr. Rodgers on 08-17-2022 Erythrocyte distribution width (RBC) [Entitic vol] 42.1 fL 35.1-43.9 [facility] Erythrocyte distribution width (RBC) [Ratio] 11.6 % 11.6-14.6 [facility] Immature granulocytes/100 WBC (Bld) 0.300 % 0.0-0.9 [facility] Comment on above: IG% - Immature Granu locytes (promyelocytes, myelocytes and metamyelocytes) > 1% indicates that a LEFT SHIFT is Present. MCH (RBC) [Entitic mass] 32.1 pg 27.0-32.0 [facility] Nucleated RBC/100 WBC (Bld) [Ratio] 0 % 0-5 [facility] MCHC Auto (RBC) [Mass/Vol]Or dered By: Dr. Rodgers on 08-17-2022 MCHC (RBC) [Mass/Vol] 32.6 g/dL 32-36 [facility] No Panel InformationOrdered By: Dr. Rodgers on 08-17-2022 Estimated GFR (MDRD) Amer 71 mL/min >60 [facility] Comment on above: GFR Calc Estimated GFR (MDRD) Non-Af Amer 58 mL/min >60 [facility] Comment on above: Non- GFR Calc Platelets bldOrdered By: Dr. Rodgers on 08-17-2022 Platelets (Bld) [#/Vol] 211 10*3/uL 150-450 [facility] Serum or plasma calcium salma urement (mass/volume)Ordered By: Dr. Rodgers on 08-17-2022 Calcium [Mass/Vol] 8.6 mg/dL 8.5-10.1 [facility] Serum or plasma creatinine m easurement (mass/volume)Ordered By: Dr. Rodgers on 08-17-2022 Creatinine [Mass/Vol] 1.02 mg/dL 0.55-1.02 [facility] Comment on above: The validity of the calculated GFR & GFRAA in patients over 70 years has not been determined. Clinical correlation is essential. Serum or plasma urea nitroge n measurement (mass/volume)Ordered By: Dr. Rodgers on 08-17-2022 Urea nitrogen [Mass/Vol] 22 mg/dL 7-18 [facility] Thin prep Papanicolaou smear with manual screeningOrdered By: Dr. Rodgers on 08-17-2022 Thin prep Papanicolaou smear with manual screening 7 5-15 [facility] Thin Prep Pap ([id number])Ordered By: Back Hanger on 07-03-2022 Thin Prep Pap (80153) [facility] Normal [facility]; [facility] Work Phone: Comment on above: NEGATIVE FOR INTRAEP ITHELIAL LESION OR MALIGNANCY.CELLULAR CHANGES ASSOCIATED WITH ATROPHY ARE PRESENT.THIS SPECIMEN WAS RESCREENED PART OF OUR PBX OPERATOR PROGRAM.Satisfactory for evaluation. Endocervical component may not bedistinguished in cases of atrophy.Z12.4Aberta Lazo, Stone Circular Sawyer (ASCP)Samantha Fraga, Supervisory [employer] Sawyer (ASCP) Source.............C ervix;EndocervixNo. of containers..01 ThinPrep VialPATIENT NOT FASTINGPERFORMED BY: Kaymu.pk[address] [place] [address] [id number] Information: [id number] Thin Prep Pap (24781) . Normal [facility]; [facility] Work Phone: Comment on above: Source.............C ervix;EndocervixNo. of containers..01 ThinPrep VialPATIENT NOT FASTINGPERFORMED BY: Kaymu.pk[address] [place], [place] [address]LingtUtah State Hospital [id number] Information: [id number] Thin Prep Pap (09432) PAPSMR Normal [facility]; [facility] Work Phone: Comment on above: The Pap smear is a s creening test designed to aid in the detection ofpremalignant and malignant conditions of the uterine cervix. It is not adiagnostic procedure and should not be used as the sole means of detectingcervical cancer. Both false-positive and false-negative reports do occur. .This liquid based ThinPrep(R) pap test was screened with theuse of an image guided system.The HPV DNA reflex criteria were not met with this specimen resulttherefore, no HPV testing was performed. . Source.............C ervix;EndocervixNo. of containers..01 ThinPrep VialPATIENT NOT FASTINGPERFORMED BY: [facility] [address] [place] [id number] Information: [id number] Urinalysis, Office ([id number])Or dered By: Radha Bains on 07-03-2022 Bilirubin Ql (U) + Abnormal Comprehe nsive Internal Medicine; [facility] Work Phone: Glucose Test strip (U) [Mass/Vol] Negative Normal [facility]; [facility] Work Phone: Hemoglobin Ql (U) +++ Abnormal Compreh ensive [facility]; [facility] Work Phone: Ketones Ql (U) Negative Normal Comprehens yael [facility]; [facility] Work Phone: Leukocyte esterase Test strip Ql (U) Negative Normal [facility]; [facility] Work Phone: Nitrite Ql (U) Negative Normal Comprehens yael [facility]; [facility] Work Phone: pH (U) 6 [pH] Abnormal [facility]; [facility] Work Phone: Comment on above: 5.5 Protein Ql (U) Negative Normal Comprehens yael [facility]; [facility] Work Phone: Specific gravity (U) [Rel density] 1.030 1 Abnormal [facility]; [facility] Work Phone: Urobilinogen (24H U) [Mass/Time] Normal Normal [facility]; [facility] Work Phone: VITAMIN B12 AND FOLATES (826 07)Ordered By: Back Hanger on 06-14-2022 Cobalamin (Vitamin B12) [Mass/Vol] 483 pg/mL Normal 232-1245 [facility]; [facility] Work Phone: Comment on above: PATIENT NOT FASTINGP ERFORMED BY: CB [facility] [id number] [facility]iasK[facility] [id number] Folate [Mass/Vol] 14.3 ng/mL Normal Compreh ensive [facility]; [facility] Work Phone: Comment on above: A serum folate olivia ntration of less than 3.1 ng/mL isconsidered to represent clinical deficiency. PATIENT NOT FASTINGP ERFORMED BY: ISAIAS Lane[address] BiotherapeuticsCaromont Regional Medical Center - [facility] [place]in [place] [id number] CBC & PLATELETS (AUTO) (8502 7)Ordered By: Back Hanger on 09-02-2021 Erythrocyte distribution width (RBC) [Ratio] 15.8 % Abnormal 11.7-15.4 [facility]; [facility] Work Phone: Comment on above: 6 weeks; PATIENT NOT FASTINGPERFORMED BY: ISAIAS [facility] Sphkvb4340 [address] BiotherapeuticsHighsmith-Rainey Specialty Hospital [id number] Hematocrit (Bld) [Volume fraction] 36.6 % Normal 34.0-46.6 [facility]; [facility] Work Phone: Comment on above: 6 weeks; PATIENT NOT FASTINGPERFORMED BY: ISAIAS Labjuan MontanoNkqvof5560 [address] BiotherapeuticsHighsmith-Rainey Specialty Hospital [id number] Hemoglobin (Bld) [Mass/Vol] 11.7 g/dL Normal 11.1-15.9 [facility]; [facility] Work Phone: Comment on above: 6 weeks; PATIENT NOT FASTINGPERFORMED BY: ISAIAS Labjuan Lane6[address] BiotherapeuticsCaromont Regional Medical Center [facility] [place]in [place] [id number] MCH (RBC) [Entitic mass] 29.4 pg Normal 26.6-33.0 [facility]; [facility] Work Phone: Comment on above: 6 weeks; PATIENT NOT FASTINGPERFORMED BY: ISAIAS Labcoesteban [id number] [address] BiotherapeuticsCaromont Regional [facility] [place] [place] [id number] MCHC (RBC) [Mass/Vol] 32.0 g/dL Normal 31.5-35.7 [facility]; [facility] Work Phone: Comment on above: 6 weeks; PATIENT NOT FASTINGPERFORMED BY: ISAIAS Labcoesteban MontanoMfoppu7[address] Health[facility] Rehabilitation Hospitalblin [place] [id number] MCV (RBC) [Entitic vol] 92 fL Normal 79-97 [facility]; [facility] Work Phone: Comment on above: 6 weeks; PATIENT NOT FASTINGPERFORMED BY: CB [facility] Uwkrad8594 Matias RoadDublin [place] [id number] Platelets (Bld) [#/Vol] 200 10*3/uL Normal 150-450 [facility]; [facility] Work Phone: Comment on above: 6 weeks; PATIENT NOT FASTINGPERFORMED BY: CB [facility] Ihdppt6768 Matias RoadDublin [place] [id number] RBC (Bld) [#/Vol] 3.98 10*6/uL Normal 3.77-5.28 [facility]; [facility] Work Phone: Comment on above: 6 weeks; PATIENT NOT FASTINGPERFORMED BY: CB [facility] Olrdpd6471 Matias RoadDublin [place] [id number] WBC (Bld) [#/Vol] 6.3 10*3/uL Normal 3.4-10.8 [facility]; [facility] Work Phone: Comment on above: 6 weeks; PATIENT NOT FASTINGPERFORMED BY: CB [facility] Djntvb1638 Matias RoadDublin [place] [id number] FERRITIN (81852)Ordered By: Back Hanger on 09-02-2021 Ferritin [Mass/Vol] 38 ng/mL Normal 15-150 [facility]; [facility] Work Phone: Comment on above: 6 weeks; PATIENT NOT FASTINGPERFORMED BY: CB [facility] Ehucxz8375 Matias RoadDublin [place] [id number] Homocysteine, Plasma (23758) Ordered By: Back Hanger on 09-02-2021 Homocysteine [Moles/Vol] 16.6 umol/L Normal 0.0-17.2 [facility]; [facility] Work Phone: Comment on above: PATIENT NOT FASTINGP ERFORMED BY: CB [facility] Fsdnty8342 Matias RoadDublin [place] [id number] Vitamin B-12 (cyanocobalamin ) (48194)Ordered By: Back Hanger on 09-02-2021 Cobalamin (Vitamin B12) [Mass/Vol] pg/mL Abnormal 232-1245 [facility]; [facility] Work Phone: Comment on above: PATIENT NOT FASTINGP ERFORMED BY: [employer] [place] [id number] Folic Acid Serum (98904)Orde red By: Back Hanger on 06-13-2021 Folate [Mass/Vol] ng/mL Normal Compreh ensive [facility]; [facility] Work Phone: Comment on above: A serum folate olivia ntration of less than 3.1 ng/mL isconsidered to represent clinical deficiency. Test(s) 510261-Viige ium, Plasma; 925575-Fnds, Plasma or Serumwas developed and its performance characteristics determinedby [employer]. It has not been cleared or approved by the Foodand Drug Administration.PATIENT NOT FASTINGPERFORMED BY: [employer] [id number] BY: Social[employer]a70 [employer] [place] [id number] MAGNESIUM (08637)Ordered By: Back Hanger on 06-13-2021 Magnesium [Mass/Vol] 2.2 mg/dL Normal 1.6-2.3 Comp rehensive Internal Medicine; [facility] Work Phone: Comment on above: Test(s) 198591-Rokwe ium, Plasma; 664174-Vqpl, Plasma or Serumwas developed and its performance characteristics determinedby [employer]. It has not been cleared or approved by the Foodand Drug Administration.PATIENT NOT FASTINGPERFORMED BY: [employer] [address] [id number] BY: Blueleaf6370 [employer] [place] [id number] Methymalonic Acid, Serum (83 921)Ordered By: Back Hanger on 06-13-2021 Methylmalonate [Moles/Vol] 449 nmol/L Abnormal 0-378 [facility]; [facility] Work Phone: Comment on above: Test(s) 677544-Zgwrm ium, Plasma; 083706-Pwue, Plasma or Serumwas developed and its performance characteristics determinedby [employer]. It has not been cleared or approved by the Foodand Drug Administration.PATIENT NOT FASTINGPERFORMED BY: [employer] [id number] BY: [employer] Rpvtln9723 [address] BiotherapeuticsHighsmith-Rainey Specialty Hospital [id number] Methymalonic Acid, Serum (94727) [facility] Normal [facility]; [facility] Work Phone: Comment on above: This test was develo ped and its performance characteristicsdetermined by [employer]. It has not been cleared or approvedby the Food and Drug Administration. Test(s) 213282-Klbkr ium, Plasma; 718646-Hjpr, Plasma or Serumwas developed and its performance characteristics determinedby [employer]. It has not been cleared or approved by the Foodand Drug Administration.PATIENT NOT FASTINGPERFORMED BY: [employer] [address] [id number] BY: [employer] Eycafu1143 [facility] [id number] VITAMIN A (18325)Ordered By: Back Hanger on 06-13-2021 Retinol [Mass/Vol] 38.4 ug/dL Normal 22.0-69.5 [facility]; [facility] Work Phone: Comment on above: Reference intervals for vitamin A determined from [facility] internalstudies. Individuals with vitamin A less than 20 ug/dL are consideredvitamin A deficient and those with serum concentrations less than10 ug/dL are considered severely deficient. .This test was developed and its performance characteristicsdetermined by [employer]. It has not been cleared or approvedby the Food and Drug Administration. all these labs now; Test(s) 259478-Zdcwlzjj, Plasma; 611991-Zodg, Plasma or Serumwas developed and its performance characteristics determinedby [employer]. It has not been cleared or approved by the Foodand Drug Administration.PATIENT NOT FASTINGPERFORMED BY: [employer] [address] [id number] BY: Intercast NetworksRunnells Specialized HospitalJabhik0005 [place] BiotherapeuticsHighsmith-Rainey [facility]ty Hospital [id number] ZINC, BLOOD (11649)Ordered B y: Back Hanger on 06-13-2021 Zinc [Mass/Vol] 70 ug/dL Normal 44-115 Dorien helga [facility]; [facility] Work Phone: Comment on above: Detection Limit = 5 Test(s) 237493-Yceyy ium, Plasma; 083615-Saka, Plasma or Serumwas developed and its performance characteristics determinedby [employer]. It has not been cleared or approved by the Foodand Drug Administration.PATIENT NOT FASTINGPERFORMED BY: BN [employer] [id number] [facility] [id number] BY: [employer] [id number] [facility]orencio [facility]endozaHighsmith[facility] [id number] Vital Signs Date Time Vital Sign Value Performing Clinician Facility 12-30-2024 15:11-0400 Body height 175.[address] Patricia Patino MD Work Phone: [facility] 12-30-2024 15:11-0400 Body mass index (BMI) [Ratio] 20.9 kg/m2 Dr. Patricia Patino MD Work Phone: [facility] 12-30-2024 15:11-0400 Body weight 64.[address] Patricia Patino MD Work Phone: [facility] 12-30-2024 15:11-0400 Diastolic blood pressure 70 mm[Hg] Dr. Patricia Patino MD Work Phone: [facility] 12-30-2024 15:11-0400 Heart rate 70 /min Dr. Patricia Patino MD Work Phone: [facility] 12-30-2024 15:11-0400 SaO2% (BldA) [Mass fraction] 96 % Dr. Patricia Patino MD Work Phone: [facility] 12-30-2024 15:11-0400 Systolic blood pressure 115 mm[Hg] Dr. Patricia Patino MD Work Phone: [facility] 04-30-2023 08:47-0400 Body height 168.91 cm Patricia Patino MD Work Phone: [facility] Work Phone: 04-30-2023 08:47-0400 Body mass index (BMI) [Ratio] 32.75 kg/m2 Patricia Patino MD Work Phone: [facility] Work Phone: 04-30-2023 08:47-0400 Body surface area Derived from formula 2.04 m2 Patricia Patino MD Work Phone: [facility] Work Phone: 04-30-2023 08:47-0400 Body temperature 98.3 [degF] Patricia Patino MD Work Phone: [facility] Work Phone: Comment on above: Method: Oral 04-30-2023 08:47-0400 Body weight 93.44 kg Patricia Patino MD Work Phone: [facility] Work Phone: 04-30-2023 08:47-0400 Diastolic blood pressure 60 mm[Hg] Patricia Patino MD Work Phone: [facility] Work Phone: Comment on above: Patient Position: Sitting 04-30-2023 08:47-0400 Heart rate 90 /min Patricia Patino MD Work Phone: [facility] Work Phone: Comment on above: Pattern: Regular 04-30-2023 08:47-0400 Respiratory rate 18 /min Patricia Patino MD Work Phone: [facility]; [facility] Work Phone: 04-30-2023 08:47-0400 SaO2% (BldA) [Mass fraction] 96 % Patricia Patino MD Work Phone: [facility]; [facility] Work Phone: Comment on above: Room air 04-30-2023 08:47-0400 Systolic blood pressure 110 mm[Hg] Patricia Patino MD Work Phone: [facility] Work Phone: Comment on above: Patient Position: Sitting 08-31-2022 07:57-0500 Body height 168.91 cm Christine Josh FERGUSON [facility] Work Phone: 08-31-2022 07:57-0500 Body mass index (BMI) [Ratio] 34.06 kg/m2 Christineelias Mcphersoncandice FERGUSON [facility] Work Phone: 08-31-2022 07:57-0500 Body surface area Derived from formula 2.07 m2 Christine Moreno LPN [facility] Work Phone: 08-31-2022 07:57-0500 Body temperature 97.6 [degF] Christineelias Moreno PHYLLIS [facility]; [facility] Work Phone: 08-31-2022 07:57-0500 Body weight 97.18 kg Christineelias Moreno PHYLLIS [facility] Work Phone: 08-31-2022 07:57-0500 Diastolic blood pressure 80 mm[Hg] Christine Moreno LPN [facility] Work Phone: Comment on above: Patient Position: Sitting; Cuff Location : Left Arm; Cuff Size: Standard 08-31-2022 07:57-0500 Heart rate 61 /min Christine Moreno LPN [facility] Work Phone: Comment on above: Pattern: Regular 08-31-2022 07:57-0500 Respiratory rate 16 /min Christine Josh LPN [facility] Work Phone: Comment on above: Pattern: Unlabored 08-31-2022 07:57-0500 SaO2% (BldA) [Mass fraction] 97 % Christine Josh SCOOP DRIVER [facility] Work Phone: Comment on above: Room air 08-31-2022 07:57-0500 Systolic blood pressure 112 mm[Hg] Christine Moreno SCOOP DRIVER [facility] Work Phone: Comment on above: Patient Position: Sitting; Cuff Location : Left Arm; Cuff Size: Standard 07-03-2022 07:52-0500 Body height 168.91 cm Patricia Patino MD Work Phone: [facility] Work Phone: 07-03-2022 07:52-0500 Body mass index (BMI) [Ratio] 33.23 kg/m2 Patricia Patino MD Work Phone: [facility]; [facility] Work Phone: 07-03-2022 07:52-0500 Body surface area Derived from formula 2.05 m2 Patricia Patino MD Work Phone: [facility]; [facility] Work Phone: 07-03-2022 07:52-0500 Body temperature 96.7 [degF] Patricia Patino MD Work Phone: [facility]; [facility] Work Phone: Comment on above: Method: Oral 07-03-2022 07:52-0500 Body weight 94.8 kg Patricia Patino MD Work Phone: [facility]; [facility] Work Phone: 07-03-2022 07:52-0500 Diastolic blood pressure 80 mm[Hg] Patricia Patino MD Work Phone: [facility]; [facility] Work Phone: Comment on above: Patient Position: Sitting; Cuff Location : Left Arm; Cuff Size: Standard 07-03-2022 07:52-0500 Respiratory rate 17 /min Patricia Patino MD Work Phone: [facility]; [facility] Work Phone: Comment on above: Pattern: Unlabored 07-03-2022 07:52-0500 Systolic blood pressure 118 mm[Hg] Patricia Patino MD Work Phone: [facility]; [facility] Work Phone: Comment on above: Patient Position: Sitting; Cuff Location : Left Arm; Cuff Size: Standard 06-11-2021 09:53-0500 Body temperature 97.7 [degF] Patricia Patino MD Work Phone: [facility]; [facility] Work Phone: Comment on above: Method: Oral 06-11-2021 09:53-0500 Diastolic blood pressure 80 mm[Hg] Patricia Patino MD Work Phone: [facility]; [facility] Work Phone: Comment on above: Patient Position: Sitting 06-11-2021 09:53-0500 Heart rate 84 /min Patricia Patino MD Work Phone: [facility]; [facility] Work Phone: Comment on above: Pattern: Regular 06-11-2021 09:53-0500 Respiratory rate 18 /min Patricia Patino MD Work Phone: [facility]; [facility] Work Phone: 06-11-2021 09:53-0500 SaO2% (BldA) [Mass fraction] 96 % Patricia Patino MD Work Phone: [facility]; [facility] Work Phone: Comment on above: Room air 06-11-2021 09:53-0500 Systolic blood pressure 140 mm[Hg] Patricia Patino MD Work Phone: [facility]; [facility] Work Phone: Comment on above: Patient Position: Sitting 06-11-2021 09:36-0500 Body height 168.91 cm RAFAELA Lopez LPN [facility] Work Phone: 06-11-2021 09:36-0500 Body mass index (BMI) [Ratio] 34.34 kg/m2 RAFAELA John FERGUSON [facility] Work Phone: 06-11-2021 09:36-0500 Body surface area Derived from formula 2.08 m2 RAFAELA Lopez LPN [facility] Work Phone: 06-11-2021 09:36-0500 Body weight 97.98 kg RAFAELA John FERGUSON [facility] Work Phone: Encounters Encounter Date Encounter Type Care Provider Facility Start: 01-08-2025 ambulatory Patricia Patino Facility:[facility] Start: 12-30-2024 End: 12-30-[address] Merlin Palacio MD -[facility] Work Phone: Start: 12-30-2024 End: 12-30-[address] Patricia Patino MD Work Phone: [facility] Work Phone: Start: 12-10-2024 ambulatory Patricia Patino Facility:[facility] Start: 04-28-2024 End: 04-28-2024 ambulatory Patricia Patino Facility:[facility] Start: 06-12-2023 End: 06-12-2023 ambulatory [facility] Work Phone: Start: 06-12-2023 End: 06-12-2023 Patient encounter procedure [facility] Work Phone: Start: 05-22-2023 Review Patricia Lopez Work Phone: [facility] Start: 05-22-2023 Registered Referred [facility] Work Phone: Start: 05-18-2023 End: 05-18-2023 Phone Encounter Patricia Patino MD Work Phone: [facility] Start: 05-15-2023 End: 05-15-2023 Subsequent hospital visit by physician Joey [address] Comment on above: Family history of is chemic heart disease and other diseases of the circulatory system Start: 05-15-2023 End: 05-15-2023 ambulatory PATRICIA PATINO [facility] Start: 04-30-2023 End: 04-30-2023 Annotation/Addendum Patricia Patino MD Work Phone: [facility] Start: 04-30-2023 End: 04-30-2023 Office outpatient visit 25 minutes Patricia Patino MD Work Phone: [facility] Start: 04-30-2023 End: 04-30-2023 Patient encounter procedure Patricia Patino MD Work Phone: [facility] Work Phone: Comment on above: 07-13 [facility] negative pap 2018, mammo, BD, colonscopy 2014 had cologuard 2021 neg saw derm 2021 Start: 09-09-2022 End: 09-09-[address] Patricia Patino Work Phone: [facility] Work Phone: Start: 09-09-2022 End: 09-09-[address] Patricia Patino Work Phone: [facility] Start: 09-05-2022 End: 09-05-[address] Patricia Patino Work Phone: [facility] Work Phone: Start: 09-05-2022 End: 09-05-[address] Patricia Patino Work Phone: [facility] Start: 08-31-2022 ambulatory Patricia Patino MD [facility] Start: 08-31-2022 End: 08-31-2022 Office outpatient visit 25 minutes Patricia Patino MD Work Phone: [facility] Start: 08-31-2022 End: 08-31-2022 Patient encounter procedure Patricia Patino MD Work Phone: [facility] Work Phone: Comment on above: 06-11-21 [facility] well[facility] ess negative pap 2019, mammo, BD, colonscopy 2014 had cologuard 2021 neg saw derm 2021 Start: 08-17-2022 End: 08-17-2022 Non-patient / Non-visit Dr. Patricia Patino Work Phone: [facility] Start: 08-17-2022 End: 08-17-[address] Patricia Patino Work Phone: [facility] Work Phone: Start: 08-17-2022 End: 08-17-[address] Patricia Patino Work Phone: [facility]-P[facility] Services/Neurology Start: 07-03-2022 Review Patricia Lopez Work Phone: [facility] Start: 07-03-2022 End: 07-03-2022 Patient encounter procedure Patricia Patino MD Work Phone: [facility] Comment on above: 06-11-21 [facility] welln ess negative pap 2018, mammo, BD, colonscopy 2014 Start: 06-14-2022 End: 06-14-2022 Lab Order Patricia Patino MD Work Phone: [facility] Start: 09-19-2021 End: 09-19-2021 Office outpatient visit 25 minutes Patricia Patino MD Work Phone: [facility] Start: 09-19-2021 End: 09-19-2021 Patient encounter procedure Patricia Patino MD Work Phone: [facility] Work Phone: Comment on above: 06-11-21 [facility] well[facility] ess negative pap 2019, mammo, BD, colonscopy 2014 Start: 09-02-2021 Review Patricia Lopez Work Phone: [facility] Start: 06-23-2021 End: 06-23-2021 Office outpatient visit 25 minutes Patricia Patino MD Work Phone: [facility] Start: 06-11-2021 End: 06-12-2021 Office outpatient visit 10 minutes Patricia Patino MD Work Phone: [facility] Start: 06-11-2021 End: 06-12-2021 Patient encounter procedure Patricia Patino MD Work Phone: [facility] Start: 04-14-2021 End: 04-17-2021 Phone Encounter Patricia Patino MD Work Phone: [facility] Patient encounter procedure Patricia Patino MD Work Phone: [facility]; [facility] Work Phone: Comment on above: 06-11-21 MOIS[facility] jaffe ess negative pap 2019, mammo, BD, colonscopy 2015 Procedures Date Procedure Procedure Detail Performing Clinician Start: 06-12-2023 MRI of abdomen with contrast Start: 05-15-2023 CT CARDIAC SCORING WO IV CONTRAST PATRICIA PATINO Start: 05-15-2023 Ct heart no contrast quant eval coronry calcium Patricia Patino MD Start: 09-09-2022 End: 09-09-2022 Kidney and Bladder Procedure Note: See Note; NOTES: [facility] Imaging Services [address] [place] [id number] Kidney and Bladder MR#: [id number] Acct: [id number] Name: BENNY BRADLEY Rep #: [id number] : 1960 F 62 From: Nick Lopez PCP: Dr. Patricia Patino MD Status: REG CLI Study: Kidney and Bladder Date of Exam: 09/09/22 Exam# [id number] Ordering Dr: Patricia Patino MD INDICATION: MICROSCOPIC HEMATURIA EXAMINATION: Ultrasound US Kidney(s) complete (eg, kidneys and bladder) TECHNIQUE: Woodward scale and color doppler images were obtained of the kidneys. COMPARISON: None. FINDINGS: RIGHT KIDNEY: The right kidney measures 9.4 x 4.5 x 3.7 cm. The renal cortex measures 1.4 cm.. There is no definite hydronephrosis. There are 2 small echogenic shadows in the mid pole and lower pole of right kidney measuring about 5 x 3 mm consistent with small stones. LEFT KIDNEY: The left kidney measures 12.2 x 4.9 x 5.4 cm. The renal cortex measures 1.7 mm.. There is mild prominence of the left pelvicalyceal system. There is a 6 mm echogenic shadow/stone in the midpole of the left kidney. URINARY BLADDER: The bladder is not well distended and has a calculated prevoid volume of 141 cc. US/Kidney and Bladder IMPRESSION: 1. Small bilateral renal stones. 2. Mild prominence of the left pelvicalyceal system 3. CT scan of the abdomen pelvis might be further value. Electronically Signed: Nick Ramos MD at 12:13 EST , CC: Dr. Patricia Patino MD Electric [employer] As[employer]ester: Signed Patricia Patino MD Work Phone: Start: 09-09-[address] Patricia Patino Work Phone: Start: 09-05-2022 End: 09-05-2022 Abdomen Limited Procedure Note: See Note; NOTES: [facility] Imaging Services [address] [place] [address] Abdomen Limited MR#: [id number] Acct: [id number] Name: BENNY BRADLEY Rep #: [id number] : 1960 F 62 From: Kit bloom MD PCP: Dr. Patricia Patino MD Status: REG CLI Study: Abdomen Limited Date of Exam: 09/05/22 Exam# [id number] Ordering Dr: Patricia Patino MD STUDY: ABDOMINAL ULTRASOUND - RIGHT UPPER QUADRANT REASON FOR VISIT: Female, 62 years old PREOP, ELEVATED LFT''S TECHNIQUE: Ultrasound evaluation of the right upper quadrant was performed with real-time and static woodward-scale imaging. TECHNICAL QUALITY: Adequate. COMPARISON: None. FINDINGS: Liver: The liver measures 17.8 cm. There is increased echogenicity consistent with fatty infiltration. The bile ducts are within normal limits. There is hepatic color flow. The direction of portal flow is hepatopetal. There is no demonstrated mass lesion. Gallbladder: The patient is status post cholecystectomy. Common Bile Duct (C.B.D.): The common bile duct measures 7.3 mm. Pancreas: There is nonvisualization of the pancreas due to overlying bowel gas. Right Kidney: Normal size of the right kidney. The right kidney measures 8.7 cm x 5 cm x 3.5 cm. Normal renal cortex. The right cortex measures 1.0 cm. There is no demonstrated renal mass or cyst. There is no right hydronephrosis. US/Abdomen Limited IMPRESSION: Hepatomegaly and fatty infiltration of the liver. Electronically Signed: Kit Cortés MD at 11:06 EST , CC: Dr. Patricia Patino MD [employer]ester: Signed Patricia Patino MD Work Phone: Start: 09-05-[address] Patricia Patino Work Phone: Start: 08-17-2022 End: 08-18-2022 12 Lead EKG Procedure Note: See Note; NOTES: [facility] Cardiovascular Services [address] [place] [address] 12 Lead EKG 08/17/22 0824 MR#: [id number] Acct: [id number] Name: BENNY BRADLEY Rep #: [id number] : 1960 62 From: Yovanny Paez MD Attending Dr: Dr. Alejandro Rodgers DO Status: REG CLI Ordering Dr: Alejandro Rodgers DO Date: 08/17/22 Location: [facility] Sex: F C Admitted: Test Reason : PRE OP Blood Pressure : / mmHG Vent. Rate : 075 BPM Atrial Rate : 075 BPM P-R Int : 164 ms QRS Dur : 084 ms QT Int : 390 ms P-R-T Axes : 051 002 045 degrees QTc Int : 435 ms Normal sinus rhythm Normal ECG Confirmed by ESTELA ROOT, YOVANNY ([id number]), supervising editor trailer CHEL WALLER ([id number]) on 08/18/2022 12:55:48 PM Referred By: BRAYDEN Confirmed By:YOVANNY PAEZ MD 08/18/22 1255 Date Yovanny Paez MD CC: Dr. Patricia Patino MD; Dr. Alejandro Rodgers DO Signed Patricia Patino MD Work Phone: Start: 09-15-2021 End: 09-16-2021 Dexa Bone Density Study Comments: See Note; NOTES: [facility] Imaging Services [address] [place] [address] Dexa Bone Density Study MR#: [id number] Acct: [id number] Name: BENNY BRADLEY Rep #: [id number] : 1960 F 61 From: Kit bloom MD PCP: Dr. Patricia Patino MD Status: REG CLI Study: Dexa Bone Density Study Date of Exam: 09/15/21 Exam# [id number] Ordering Dr: Patricia Patino MD STUDY: DUAL ENERGY X-RAY ABSORPTIOMETRY / DXA REASON FOR EXAM: Female, 61 years old. [id number]. The patient is postmenopausal. TECHNIQUE: Bone Mineral Density (BMD) measurements of lumbar spine and bilateral hips were obtained. COMPARISON: None. FINDINGS: Lumbar Spine (L1-L4): g/cm2 (0.844) / T-score (-1.8) / Z-score (-0.4) Findings are suggestive of osteopenia with a moderate fracture risk. Left Femur Total: g/cm2 (0.780) / T-score (-1.3) / Z-score (-0.3) Left Femoral Neck: g/cm2 (0.681) / T-score (-1.5) / Z-score (-0.2) Right Femur Total: g/cm2 (0.752) / T-score (-1.6) / Z-score (-0.6) Right Femoral Neck: g/cm2 (0.623) / T-score (-2.0) / Z-score (-0.7) BD/Dexa Bone Density Study IMPRESSION: The patient is considered osteopenic as outlined below according to World [employer] Organization (WHO) criteria with a moderate fracture risk. Reference Information: The T-score is the number of standard deviations above or below the standard which is normal for young adults at their peak bone mineral density. The World Health Organization (WHO) interprets the T-scores as follows: Above -1 Normal bone density Between -1 and -2.5 Osteopenia Equal to / or below -2.5 Osteoporosis As a practical clinical guideline, osteopenia may be graded as follows: Mild -1 through -1.5 Moderate -1.6 through -2.0 Severe -2.1 through -2.4 The Z-score is the number of standard deviations above or below age-matched controls. A Z-score of less than -1.5 would be considered abnormal. References: 1. NIH Osteoporosis and Related Bone Diseases www osteo.org 2. International Society for Clinical Densitometry www iscd.org 3. National Osteoporosis Foundation www nof.org Electronically Signed: Kit Cortés MD at 8:23 EST , CC: Dr. 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 Patricia Patino MD Status: REG CLI Study: SCRN MAMM (CAD)W/REGGIE BILAT Date of Exam: 08/24 11/11 Exam# [id number] Ordering Dr: Patricia Patino MD MAMMOGRAPHY - BILATERAL SCREENING REASON FOR EXAM: Female, 61 years old. Routine annual screening examination. PERTINENT HISTORY: Non-contributory. Remote left breast biopsy. TECHNIQUE: Digital bilateral breast reggie (3D mammographic acquisition) in the CC and MLO projections. 2-D mediolateral oblique (MLO) and craniocaudad (CC) views of both breasts were obtained. CAD: Full Field Digital Mammography with Computer Added Detection was performed. COMPARISON: Comparison is made with prior examination dated 11/16/2014. FINDINGS: Breast Composition: The breasts are almost entirely fatty. There are no dominant masses or suspicious calcifications. No other significant abnormalities are identified. There has been no significant change since the prior study. BI/SCRN MAMM (CAD)W/REGGIE BILAT IMPRESSION: Stable bilateral screening mammogram. Yearly follow-up mammogram recommended. (A) ASSESSMENT CATEGORY: BIRADS Category 1: Negative. A letter regarding these results will be sent to the patient by the facility within 30 days. Approximately 10% of breast cancers are not detected by mammography. A normal mammogram should not delay biopsy of a clinically suspicious abnormality. [id number] Electronically Signed: Kit Cortés MD at 14:33 EST , CC: Dr. Patricia Patino MD Electric [employer] As[employer]er [employer] Tester: Signed Patricia Patino MD Work Phone: Start: 01-08-2019 End: 01-08-2019 Screening mammography RAFAELA Lopez LPN Comment on above: [facility] Start: 12-21-2018 End: 12-21-2018 Hep C screen high risk/other RAFAELA Lopez LPN Comment on above: Within Normal Limits. Negative [facility] Start: 12-21-2018 End: 12-21-2018 Microscopic examination of cervical Papanicolaou smear RAFAELA Lopez LPN Comment on above: 01-15-2019 negative Radha Alexandre [facility] Start: 12-21-2012 End: 12-21-2012 Screening colonoscopy RAFAELA Lopez LPN Comment on above: Cebul [facility] repeat 10 years Start: 05-23-2008 End: 05-23-2008 Cysto/uretero w/lithotripsy &indwell stent insrt RAFAELA Lopez LPN Start: 07-23-2000 End: 07-23-2000 Biopsy of breast RAFAELA Lopez LPN Comment on above: 2000 benign Start: 07-23-2000 End: 07-23-2000 Craniec craniosynostosis front/pariet bone flap Patricia Patino MD Work Phone: Comment on above: Left. frontoparietal region last ct head 09-05-2013 -impression post surgical defect left frontoparietal region, frontal bone benign lesion Start: 07-23-1999 End: 07-23-1999 Laps gstr rstcv px w/byp renato-en-y limb <150 cm Patricia Patino MD Work Phone: Comment on above: Renato and Y Start: 07-23-1993 End: 07-23-1993 section RAFAELA Lopez LPN Salpingo-oophorectom y compl/prtl uni/bi spx RAFAELA Lopez LPN Comment on above: 2009 Uterus still remains Salpingo-oophorectom y compl/prtl uni/bi spx Radha Bains MA Comment on above: 2009 Uterus still remains Salpingo-oophorectom y compl/prtl uni/bi spx Christine Moreno LPN Comment on above: 2009 Uterus still remains Salpingo-oophorectom y compl/prtl uni/bi spx Radha Bains MA Comment on above: 2009 Uterus still remains Tonsillectomy RAFAELA Lopez LPN Comment on above: as a chils Tonsillectomy Radha Frazier A Comment on above: as a chils Tonsillectomy Christine Moreno LPN Comment on above: as a chils Tonsillectomy Radha Frazier A Comment on above: as a chils Plan of Treatment Date Care Activity Detail Author Start: 12-14-2028 DTaP/Tdap/Td Vaccines (6 - Td or Tdap) DTaP/Tdap/Td Vaccines (6 - Td or Tdap) [facility] Start: 04-30-2023 Antinuclear antibodies alec ALEC (ANTINUCLEAR ANTIBODY) (41721) [facility] Work Phone: Comment on above: to be done with the executive CHL radha crowder Start: 04-30-2023 Procedure Education Eprescribed prescriptions (G8553) [facility]; [facility] Work Phone: Start: 04-30-2023 Assay of homocysteine Homocysteine, Plasma (15364) [facility]; [facility] Work Phone: Start: 04-30-2023 Organic acid 1 quantitative Methymalonic Acid, Serum (49500) [facility]; [facility] Work Phone: Start: 04-30-2023 Cyanocobalamin vitamin b-12 Vitamin B-12 (cyanocobalamin) (54157) [facility]; [facility] Work Phone: Start: 04-30-2023 Urnls dip stick/tablet rgnt non-auto w/o micrscp Urinalysis, Office (46254) [facility]; [facility] Work Phone: Start: 04-30-2023 Assay of ferritin FERRITIN (22098) [facility]; [facility] Work Phone: Start: 04-30-2023 Immunoassay analyte qual/semiqual multiple step ANTIMITOCHONDRIAL ANTIBODY (46858) [facility]; [facility] Work Phone: Start: 04-30-2023 Antibody cytomegalovirus cmv igm CMV IGM ANTBDY (73669) [facility]; [facility] Work Phone: Start: 04-30-2023 Ceruloplasmin CERULOPLASMIN (64457) [facility]; [facility] Work Phone: Start: 04-30-2023 Fluorescent nonnfct agt antb screen ea antibody ASM (ANTI SMOOTH MUSCLE ANTIBODY) (22648) [facility]; [facility] Work Phone: Start: 04-30-2023 Microsomal antibodies each ANTI-LIVER/KIDNEY MICROSOMAL ANTIBODY (09192) [facility]; [facility] Work Phone: Start: 03-23-2023 Influenza vaccination Influenza Vaccine (#1) [facility] Start: 08-31-2022 Procedure Education Eprescribed prescriptions (G8553) [facility]; [facility] Work Phone: Start: 08-31-2022 Comprehensive metabolic panel METABOLIC PANEL, COMPREHENSIVE (32557) [facility]; [facility] Work Phone: Start: 07-03-2022 Acute hepatitis panel HEPATITIS PANEL (99032) [facility]; [facility] Work Phone: Comment on above: in 6 weeks Start: 07-03-2022 Hepatic function panel HEPATIC FUNCTION PANEL (92534) [facility]; [facility] Work Phone: Comment on above: in 6 weeks Start: 07-03-2022 Procedure Education Eprescribed prescriptions (G8553) [facility]; [facility] Work Phone: Start: 07-03-2022 Urnls dip stick/tablet reagent auto microscopy URINALYSIS, W/ MICRO (95603) [facility]; [facility] Work Phone: Comment on above: in 6 weeks Start: 07-03-2022 Cytp c/v auto thin lyr prepj scr mnl rescr phys Thin Prep Pap (05879) [facility]; [facility] Work Phone: Start: 06-14-2022 Cyanocobalamin vitamin b-12 VITAMIN B12 AND FOLATES (89616) [facility]; [facility] Work Phone: Start: 06-01-2022 COVID-19 Vaccine (3 - Pfizer series) COVID-19 Vaccine (3 - Pfizer series) [facility] Start: 09-19-2021 Blood count complete automated CBC & PLATELETS (AUTO) (67419) [facility]; [facility] Work Phone: Start: 09-19-2021 Cyanocobalamin vitamin b-12 VITAMIN B-12 (CYANOCOBALAMIN) (12530) [facility]; [facility] Work Phone: Start: 09-19-2021 Assay of ferritin FERRITIN (29156) [facility]; [facility] Work Phone: Start: 09-19-2021 Assay of homocysteine Homocysteine, Plasma (42381) [facility]; [facility] Work Phone: Start: 06-11-2021 Patient Education Tinnitus: ringing [facility]; [facility] Work Phone: Start: 06-11-2021 Assay of homocysteine Homocysteine, Plasma (54853) [facility]; [facility] Work Phone: Start: 06-11-2021 Assay of ferritin FERRITIN (68468) [facility]; [facility] Work Phone: Comment on above: 6 weeks Start: 06-11-2021 Blood count complete automated CBC & PLATELETS (AUTO) (20194) [facility]; [facility] Work Phone: Comment on above: 6 weeks Start: 06-11-2021 Assay of chromium CHROMIUM (60975) [facility]; [facility] Work Phone: Start: 06-11-2021 Cyanocobalamin vitamin b-12 Vitamin B-12 (cyanocobalamin) (45781) [facility]; [facility] Work Phone: Start: 2010 Zoster Vaccines (1 of 2) Zoster Vaccines (1 of 2) [facility] Start: 2000 Screening for malignant neoplasm of breast Mammogram [facility] Start: 1981 Screening for malignant neoplasm of cervix [facility] Start: 1978 Hepatitis C screening Hepatitis C Screening [facility] Start: 1961 MMR Vaccines (1 of 1 - Standard series) MMR Vaccines (1 of 1 - Standard series) [facility] Start: 1960 HIV screening HIV Screening [facility] Start: 1960 Lipid panel Lipid Panel [facility] Start: 1960 Screening for malignant neoplasm of colon [facility] Start: 1960 Yearly Adult Physical Yearly Adult Physical [facility] Acute hepatitis 2000 panel - Serum [facility] Trhpi-8-fzsodgzgodr. anna marie or marker [Units/volume] in Serum or Plasma [facility] Bilirubin.direct [Mass/volume] in Serum or Plasma [facility] C reactive protein [Mass/volume] in Serum or Plasma [facility] CBC W Auto Different ial panel - Blood [facility] Comprehensive metabo lic 1999 panel - Serum or Plasma [facility] End: 05-15-2023 CT for calcium scoring WO contrast and CTA W contrast IV Heart and coronary arteries [facility] Service Area Work Phone: Comment on above: Once for 1 Occurrences starting 05/15/20 23 until 05/15/2023 Cytoplasmic ANCA Screen [facility] Ferritin [Mass/volum e] in Serum or Plasma [facility] Hemoglobin A1c/Hemoglobin.total in Blood [facility] Hepatitis B virus surface Ab [Presence] in Serum [facility] Lipid 1996 panel - Serum or Plasma [facility] Liver stiffness by US.transient elastography [facility] Mitochondria Ab [Presence] in Serum [facility] Prothrombin time [facility] Smooth muscle Ab [Presence] in Serum [facility] Work Phone: [facility] Work Phone: [facility] Work Phone: [facility] Work Phone: [facility]; [facility] Work Phone: [facility]; [facility] Work Phone: [facility] Work Phone: [facility]; [facility] Work Phone: Immunizations Immunization Date Immunization Notes Care Provider [facility] 08-12-2020 COVID-Pfizer (30 MCG/0.3 ML) Patricia Patino MD Work Phone: [facility]; [facility] Work Phone: 07-11-2020 COVID-Pfizer (30 MCG/0.3 ML) Patricia Patino MD Work Phone: [facility]; [facility] Work Phone: 12-14-2018 tetanus and diphther ia toxoids, adsorbed, preservative free, for adult use (2 Lf of tetanus toxoid and 2 Lf of diphtheria toxoid) Patricia Patino MD Work Phone: [facility]; [facility] Work Phone: 08-23-2008 tetanus toxoid, reduced diphtheria toxoid, and acellular pertussis vaccine, adsorbed Patricia Pation MD Work Phone: [facility]; [facility] Work Phone: Payers Date Payer Category Payer Self-pay [id number] 2022 Unknown 2022 Unknown [id number] 2007 Unknown [id number] 1960 Unknown [id number] [id number] [id number] 1960 Unknown [id number] 2.16.8 [id number] Unknown [id number] [id number] [id number] Unknown [id number] 2.16.8 [id number] Unknown [id number] 2.16.8 [id number] Unknown [id number] 2.16.8 [id number] Social History Date Type Detail Facility Alcohol Use: Alcohol Use: [facility] Work Phone: Comment on above: 2 per month Current Work/Study Status: Current Work/Study Status: [facility]; [facility] Work Phone: Comment on above: 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 [facility] in 10 minutes from [facility] 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 [facility] 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 Exercise History: Exercise History: Compr [facility]; [facility] Work Phone: Comment on above: 3 days a week Living Situation: Living Situation: [facility]; [facility] Work Phone: Comment on above: No Drug Use No Drug Use [facility] Work Phone: Tobacco Use: Tobacco Use: [facility] Work Phone: Start: 04-05-2019 Tobacco smoking status NHIS Unknown if ever smoked [facility] Start: 1960 Sex Assigned At Female [facility] Start: 1960 Sex Assigned At Not on file [facility] Work Phone: Gender identity Not on file [facility] Work Phone: Start: 05-05-2023 End: 05-15-2023 Exposure to SARS-CoV-2 (event) Not sure [facility] Start: 04-05-2019 Tobacco smoking status NHIS Never smoked tobacco (finding) [facility] Clinical Notes 10-18-2020 to 12-30-2024 Note Date & Type Note Facility 12-30-2024 Progress note Note Date/Time December 30, 2024 4:06pm [facility] [place] [address] OFFICE VISIT Date of Service: 12/30/24 MR#: [id number] Acct: [id number] Name: BENNY BRADLEY Rep #: [id number] : 1960 Provider: Dr. Oliver Palacio MD Age/Sex: 64/F Location: [facility] Status: Signed Intake Vital Signs 06/17/21 16:25 12/30/24 15:11 Height 5 ft 9 in 5 ft 9 in Weight: 142 lb BMI 20.9 BP 115/70 Blood Pressure Location Rt brachial Position Sitting Pulse 70 Pulse Oximetry (%) 96 Oxygen Delivery Method room air Intake Visit Reasons: ELEVATED LFT'S Allergies iron (From Venofer) Allergy (Intermediate, Verified 12/30/24 14:53) Shortness of breath codeine Allergy (Verified 12/30/24 14:53) Hives iron sucrose complex (From Venofer) Allergy (Verified 12/30/24 14:53) Chest tightness morphine Allergy (Verified 12/30/24 14:53) Hives Medications ?Medication ?Instructions ?Recorded ?Confirmed ?Type ferrous sulfate 325 mg (65 mg 325 mg PO DAILY 04/05/19 12/30/24 History iron) tablet folic acid 1 mg tablet 1 mg PO QDAY 10/21/24 History semaglutide 0.25 mg or 0.5 mg (2 0.25 mg subcut QWEEK 10/21/24 12/30/24 History mg/3 mL) subcutaneous pen injector [facility] Medical History (Updated 12/30/24 @ 16:[address] Merlin Palacio MD) Liver hemangioma Fatty liver B12 deficiency Vitamin D insufficiency Iron deficiency anemia History of kidney stones Tinnitus Elevated homocysteine Surgical History History of lithotripsy History of hysterectomy History of gastric bypass History of cholecystectomy Family History Other Diabetes Heart disease Rheumatoid arthritis Thyroid disorder Social History Smoking Status: Never smoker alcohol intake: never HPI HPI Details: BENNY BRADLEY, is a 64 F who presents to the office today for consult for elevated LFTS. US abd/ elastography 10.7.24- Liver measures 13.2cm, Stiffness 6.5 kPa 12/31/2024: First visit referred by PCP Dr. Patino for elevated liver chemistry. 1 liver test available to review which shows AST 53, ALT 56 rest liver chemistry normal limit in December 09, 2024. Patient has also had her liver test have been abnormal since 2022 and AST ALT are better. She had liver ultrasound in 2022 which was done for abnormal LFT. No other specific symptoms related to hepatobiliary/GI system including abdominal pain, nausea, vomiting alteration in bowel habit fever or fatigue or pruritus. Patient other tests which shows cholesterol panel A1c 4.6 in November 2024. TSH and uric acid normal. Vitamin D 25-hydroxy 33 low normal. Family history: Her brother has RA and thyroid disease. Her mother and sister also has thyroid disease. Denies other autoimmune condition in first-degree family directive. Social history: Occasional drinking alcohol probably once a month when she was ateenager. Never smoked. No history of substance use. Surgical history: Had Renato-en-Y gastric bypass more than 20 years. She gained back weight therefore currently on semaglutide. History of bilateral nephrectomy ROS Const Constitutional: No fever(s), decreased energy, weakness or weight change ENT ENT: No dizziness/vertigo, nosebleed/epistaxis or tongue swelling Resp Respiratory: No shortness of breath or wheezing Cardio Cardiology: No chest pain at rest or dyspnea on exertion Gastro GI: No coffee ground emesis, Blood in stool or Black,tarry stools Genitourinary-Female: No difficulty urinating or burning urination Musc Musculoskeletal: No limited range of motion or muscle weakness Skin Skin: Positive for dry skin; No rash Neuro Neurology: No abnormal movements, behavioral changes, weakness or lack of coordination Psych Psychiatric: No behavioral changes, No hyperactivity and No inattentiveness Endo Endocrine: No increased thirst/drinking, increased hunger or weight change Aller/Imm Allergy/Immunologic: No tongue swelling or wheezing Shankar/Lymp Hematologic/Lymphatic: No easy bleeding or easy bruising Exam Const General: cooperative, no acute distress and well developed Nutritional Appearance: average body habitus Orientation: alert, awake and oriented x3 Other: BMI 20.9 kg/m? HENMT Head: normocephalic and atraumatic Nose: external nose normal Face and sinus: normal facial exam Mouth: moist mucous membranes Eyes Pupils: PERRL EOM: EOM intact bilaterally Neck Neck: normal visual inspection, no meningeal signs and trachea midline Carotids: no bruits Chest Chest palpation & inspection: normal inspection of the chest Resp Effort & Inspection: normal respiratory effort and symmetric chest movement Auscultation: Bilateral: Clear to Auscultation Cardio Palpation: normal PMI Rate: regular rate Rhythm: regular rhythm Heart Sounds: S1 normal and S2 normal Other: Systolic murmur present GI Auscultation: normal bowel sounds Percussion: normal to percussion Palpation: soft, no hepatosplenomegaly and no guarding Other: Liver not enlarged. Spleen not palpable. Midline surgical incision of old gastric bypass. Scaphoid abdomen. No free fluid/ascites palpable General: bimanual renal exam normal bilaterally, bladder normal to inspection and bladder normal to palpation Bimanual Exam- Vagina & Uterus: bladder normal to palpation Musc Musculoskeletal: No joint tenderness, joint redness, joint warmth or decreased range of motion Thoracic/Lumbar Spine: thor and lumb spine abnorm to inspection Skin General: rashes and/or lesions noted, turgor normal and no erythema Wounds: wound noted Neuro General: patient alert, patient awake, patient oriented x3 and no focal motor deficits Speech: speech normal Motor: muscle tone normal throughout Extrem General: normal exam except as noted Psych Appearance: grossly normal Mood: congruent mood Affect: normal affect Attitude: cooperative Assessment and Plan Assessment and Plan (1) Abnormal LFTs (liver function tests): Status: Chronic Plan: Transaminases elevated since 2022 Liver ultrasound done and ferritin 23 for elevated liver chemistry reported liver size 17.8 cm increased fatty infiltration status postcholecystectomy CBD 7.3 mm otherwise normal. Abdomen MRI in June 14 shows small hemangioma 1.6 cm and another 7 mm in T2 hyperintense consistent with meningioma Liver ultrasound in May 15 however measured size 13.2 cm with fatty infiltration. No lesion reported. Median liver stiffness 6.5 kPa. Hepatopetalcolor flow. Patient denies history of thrombosis. Comprehensive labs ordered to rule out other liver pathologies. Abdominal ultrasound with elastography ordered (2) Liver hemangioma: Status: Chronic Plan: As mentioned above (3) Metabolic dysfunction-associated steatotic liver disease (MASLD): Status: Chronic Plan: As mentioned above Patient already on semaglutide 0.25 mg subcu q. weekly which is known to decrease liver fatty infiltration and fibrosis. Repeat liver ultrasound elastography. Follow-up in 3 to 4 months Medications: Discontinued acetaminophen (Tylenol) Discontinued Reason: Discontinued by PCP/other physicians 325 mg PO Q6H ibuprofen Discontinued Reason: Discontinued by PCP/other physicians 200 mg PO Q6H Coding Level of Care Code New Pt Off vis,new,level 4 Patient Type New History Comprehensive Exam Comprehensive Medical Decision Making Moderate Complexity Diagnoses Abnormal LFTs (liver function tests) R79.89 Liver hemangioma D18.03 Metabolic dysfunction-associated steatotic liver disease (MASLD) K76.0 12/30/24 1606 <Electronically signed by Merlin Palacio MD> Date _ Merlin Palacio MD [facility] Signature: Date (if applicable) CC: Dr. Patricia Patino MD ~ [facility] Work Phone: 1(138) 489-905206-10-2025 Evaluation note* Diagnosis Onset Date Resolution Status Admit Date Abnormal LFTs (liver functio n tests) chronic December 30, 2024 2:48pm Liver hemangioma chronic December 2:48pm Metabolic dysfunction-associ ated steatotic liver disease (MASLD) chronic December 30, 2024 2:48pm [facility] Work Phone: 1(526) 143-298906-10-2025 [facility] [address] [place] [address] OFFICE VISIT Date of Service: 12/30/24 MR#: [id number] Acct: [id number] Name: BENNY BRADLEY Rep #: [id number] : 1960 Provider: Dr. Oliver Palacio MD Age/Sex: 64/F Location: [facility] Status: Signed Intake Vital Signs 06/17/21 16:25 12/30/24 15:11 Height 5 ft 9 in 5 ft 9 in Weight: 142 lb BMI 20.9 BP 115/70 Blood Pressure Location Rt brachial Position Sitting Pulse 70 Pulse Oximetry (%) 96 Oxygen Delivery Method room air Intake Visit Reasons: ELEVATED LFT'S Allergies iron (From Venofer) Allergy (Intermediate, Verified 12/30/24 14:53) Shortness of breath codeine Allergy (Verified 12/30/24 14:53) Hives iron sucrose complex (From Venofer) Allergy (Verified 12/30/24 14:53) Chest tightness morphine Allergy (Verified 12/30/24 14:53) Hives Medications ?Medication ?Instructions ?Recorded ?Confirmed ?Type ferrous sulfate 325 mg (65 mg 325 mg PO DAILY 04/05/19 12/30/24 History iron) tablet folic acid 1 mg tablet 1 mg PO QDAY 10/21/24 History semaglutide 0.25 mg or 0.5 mg (2 0.25 mg subcut QWEEK 10/21/24 12/30/24 History mg/3 mL) subcutaneous pen injector [facility] Medical History (Updated 12/30/24 @ 16:[address] Merlin Palacio MD) Liver hemangioma Fatty liver B12 deficiency Vitamin D insufficiency Iron deficiency anemia History of kidney stones Tinnitus Elevated homocysteine Surgical History History of lithotripsy History of hysterectomy History of gastric bypass History of cholecystectomy Family History Other Diabetes Heart disease Rheumatoid arthritis Thyroid disorder Social History Smoking Status: Never smoker alcohol intake: never HPI HPI Details: BENNY BRADLEY, is a 64 F who presents to the office today for consult for elevated LFTS. US abd/ elastography 10.7.24- Liver measures 13.2cm, Stiffness 6.5 kPa 12/31/2024: First visit referred by PCP Dr. Patino for elevated liver chemistry. 1 liver test available to review which shows AST 53, ALT 56 rest liver chemistry normal limit in December 09, 2024. Patienthas also had her liver test have been abnormal since 2022 and AST ALT are better. She had liver ultrasound in 2022 which was done for abnormal LFT. No other specific symptoms related to hepatobiliary/GI system including abdominal pain, nausea, vomiting alteration in bowel habit fever or fatigue or pruritus. Patient other tests which shows cholesterol panel A1c 4.6 in November 2024. TSH and uric acid normal. Vitamin D 25-hydroxy 33 low normal. Family history: Her brother has RA and thyroid disease. Her mother and sister also has thyroid disease. Denies other autoimmune condition in first-degree family directive. Social history: Occasional drinking alcohol probably once a month when she was ateenager. Never smoked. No history of substance use. Surgical history: Had Renato-en-Y gastric bypass more than 20 years. She gained back weight thereforecurrently on semaglutide. History of bilateral nephrectomy ROS Const Constitutional: No fever(s), decreased energy, weakness or weight change ENT ENT: No dizziness/vertigo, nosebleed/epistaxis or tongue swelling Resp Respiratory: No shortness of breath or wheezing Cardio Cardiology: No chest pain at rest or dyspnea on exertion Gastro GI: No coffee ground emesis, Blood in stool or Black,tarry stools Genitourinary-Female: No difficulty urinating or burning urination Musc Musculoskeletal: No limited range of motion or muscle weakness Skin Skin: Positive for dry skin; No rash Neuro Neurology: No abnormal movements, behavioral changes, weakness or lack of coordination Psych Psychiatric: No behavioral changes, No hyperactivity and No inattentiveness Endo Endocrine: No increased thirst/drinking, increased hunger or weight change Aller/Imm Allergy/Immunologic: No tongue swelling or wheezing Shankar/Lymp Hematologic/Lymphatic: No easy bleeding or easy bruising Exam Const General: cooperative, no acute distress and well developed Nutritional Appearance: average body habitus Orientation: alert, awake and oriented x3 Other: BMI 20.9 kg/m? HENMT Head: normocephalic and atraumatic Nose: external nose normal Face and sinus: normal facial exam Mouth: moist mucous membranes Eyes Pupils: PERRL EOM: EOM intact bilaterally Neck Neck: normal visual inspection, no meningeal signs and trachea midline Carotids: no bruits Chest Chest palpation & inspection: normal inspection of the chest Resp Effort & Inspection: normal respiratory effort and symmetric chest movement Auscultation: Bilateral: Clear to Auscultation Cardio Palpation: normal PMI Rate: regular rate Rhythm: regular rhythm Heart Sounds: S1 normal and S2 normal Other: Systolic murmur present GI Auscultation: normal bowel sounds Percussion: normal to percussion Palpation: soft, no hepatosplenomegaly and no guarding Other: Liver not enlarged. Spleen not palpable. Midline surgical incision of old gastric bypass. Scaphoid abdomen. No free fluid/ascites palpable General: bimanual renal exam normal bilaterally, bladder normal to inspection and bladder normal topalpation Bimanual Exam- Vagina & Uterus: bladder normal to palpation Musc Musculoskeletal: No joint tenderness, joint redness, joint warmth or decreased range of motion Thoracic/Lumbar Spine: thor and lumb spine abnorm to inspection Skin General: rashes and/or lesions noted, turgor normal and no erythema Wounds: wound noted Neuro General: patient alert, patient awake, patient oriented x3 and no focal motor deficits Speech: speech normal Motor: muscle tone normal throughout Extrem General: normal exam except as noted Psych Appearance: grossly normal Mood: congruent mood Affect: normal affect Attitude: cooperative Assessment and Plan Assessment and Plan (1) Abnormal LFTs (liver function tests): Status: Chronic Plan: Transaminases elevated since 2022 Liver ultrasound done and ferritin 23 for elevated liver chemistry reported liver size 17.8 cm increased fatty infiltration status postcholecystectomy CBD 7.3 mm otherwise normal. Abdomen MRI in June 14 shows small hemangioma 1.6 cm and another 7 mm in T2 hyperintense consistent with meningioma Liver ultrasound in May 15 however measured size 13.2 cm with fatty infiltration. No lesion reported. Median liver stiffness 6.5 kPa. Hepatopetalcolor flow. Patient denies history of thrombosis. Comprehensive labs ordered to rule out other liver pathologies. Abdominal ultrasound with elastography ordered (2) Liver hemangioma: Status: Chronic Plan: As mentioned above (3) Metabolic dysfunction-associated steatotic liver disease (MASLD): Status: Chronic Plan: As mentioned above Patient already on semaglutide 0.25 mg subcu q. weekly which is known to decrease liver fatty infiltration and fibrosis. Repeat liver ultrasound elastography. Follow-up in 3 to 4 months Medications: Discontinued acetaminophen (Tylenol) Discontinued Reason: Discontinued by PCP/other physicians 325 mg PO Q6H ibuprofen Discontinued Reason: Discontinued by PCP/other physicians 200 mg PO Q6H Coding Level of Care Code New Pt Off vis,new,level 4 Patient Type New History Comprehensive Exam Comprehensive Medical Decision Making Moderate Complexity Diagnoses Abnormal LFTs (liver function tests) R79.89 Liver hemangioma D18.03 Metabolic dysfunction-associated steatotic liver disease (MASLD) K76.0 12/30/24 1606 > Date _ Merlin Palacio MD Cosigner Signature: Date (if applicable) CC: Dr. Patricia Patino MD ~ [facility]07-23-2021 NotePatient Outreach (INTMMN) BENNY BRADLEY ([id number]) 1960 F Date Time Provider Department 02/11/21 ANTOLIN POWELL INTMMN During your visit today, we recorded the following information about you: Allergies As of Date: 02/11/2021 Noted Allergy Reaction CODEINE 08/28/2008 4 - Hives MORPHINE 08/28/2008 4 - Hives VENOFER (IRON SUCROSE) 08/28/2008 Comments: sob, cardiac sx Date Reviewed: 01/08/2019 Reviewed by: Radha Alexandre - Fully Assessed Visit Diagnosis:Encounter for screening mammogram for breast cancer [Z12.31] Order(s):[facility] SCREENING [[id number]] Order #: [id number] FUTURE Prescriptions as of 02/14/2021 - folic acid 1 mg tablet Take 1 tablet by mouth once daily. - IBUPROFEN 600 MG TAB 1 Tab ORAL EVERY 6 HOURS NEEDED. Take with food. - FERROUS SULFATE 325 MG (65 MG IRON) TAB Take one(1) tablet daily. - acetaminophen(TYLENOL ARTHRITIS 650 MG TAB) 2 pills as needed at night Problem List As Of Date 02/11/2021 Noted Resolved Anemia, unspecified [D64.9] 08/28/2008 09/08/2011 MALAISE AND FATIGUE NEC [R53.81, R53.83] 08/28/2008 CALCULUS OF KIDNEY [N20.0] 08/28/2008 DYSMETABOLIC SYNDROME X [E88.81] 08/28/2008 GENERAL OSTEOARTHROSIS [M15.9] 09/09/2008 Iron deficiency anemia [D50.9] 10/15/2008 Abdominal or pelvic swelling, mass, or lump, ri*10/19/2008 08/21/2011 Irregular menstrual cycle [N92.6] 09/08/2011 01/08/2019 Excessive or frequent menstruation [N92.0] 09/08/2011 01/08/2019 Dysmenorrhea [N94.6] 09/08/2011 01/08/2019 Dyspareunia [OJL4620] 09/08/2011 Symptomatic menopausal or female climacteric st*09/08/2011 H/O gastric bypass [Z98.84] 10/05/2011 Cervicalgia [M54.2] 08/22/2013 Backache, unspecified [M54.9] 08/22/2013 B12 deficiency [E53.8] 11/19/2014 Encounter Status:Closed by ISABEL TREVIZO on 02/14/21[facility] 11-16-2020 NoteHNO ID: [id number] Author: Consuelo Oswald Service: ? Author Type: ? Type: Progress Notes Filed: 11/16/2020 2:57 PM Note Text: POPULATION HEALTH NAVIGATION OUTREACH Action/FYI Left message for patient to contact at [phone] to schedule Mammogram screening. Also sent [employer] message. Please assist patient with scheduling a Mammogram screening when she returns the call. Contact made with patient or family member? NO Pt identified by name and : NO Outreach Outcome/Action Unable to reach patient: Left message Reason for Outreach Care Gap or Scheduling/Wellness visits Payer: Payor: [employer] / Plan: BLUE CARD PPO / Product Type: PPO / Care Gap Reviewed:: Breast Cancer screening Reminder: Reminder note to check Health Maintenance for items below Health Maintenance items due: HIV SCREENING Never done SHINGRIX VACCINE(1 of 2) Never done DEPRESSION SCREENING due on 12/15/2019 MAMMOGRAM due on 01/09/2020 Navigation Signature: Consuelo Oswald November 16, 2020 2:55 [facility]04-27-2021 NotePatient Outreach (FAMPTW) BENNY BRADLEY ([id number]) 1960 F Date Time Provider Department 11/16/20 CONSUELO OSWALD (PSS) FAMPTW During your visit today, we recorded the following information about you: Consuelo Oswald 11/16/2020 2:57 PM Signed POPULATION HEALTH NAVIGATION OUTREACH Action/FYI Left message for patient to contact at [phone] to schedule Mammogram screening. Also sent [employer] message. Please assist patient with scheduling a Mammogram screening when she returns the call. Contact made with patient or family member? NO Pt identified by name and : NO Outreach Outcome/Action Unable to reach patient: Left message Reason for Outreach Care Gap or Scheduling/Wellness visits Payer: Payor: [employer] / Plan: BLUE CARD PPO / Product Type: PPO / Care Gap Reviewed:: Breast Cancer screening Reminder: Reminder note to check Health Maintenance for items below Health Maintenance items due: HIV SCREENING Never done SHINGRIX VACCINE(1 of 2) Never done DEPRESSION SCREENING due on 12/15/2019 MAMMOGRAM due on 01/09/2020 Navigation Signature: Consuelo Oswald November 16, 2020 2:55 PM Allergies As of Date: 11/16/2020 Noted Allergy Reaction CODEINE 08/28/2008 4 - Hives MORPHINE 08/28/2008 4 - Hives VENOFER (IRON SUCROSE) 08/28/2008 Comments: sob, cardiac sx Date Reviewed: 01/08/2019 Reviewed by: Radha WhittingtonFloating Hospital For ChildrenRaoul Alexandre - Fully Assessed Reason for Visit: Population Health Navigation Outreach [3910] Cmt: DEFFERED CARE Prescriptions as of 11/16/2020 Sig: FOLIC ACID 1 MG TABLET Take 1 tablet by mouth once d* IBUPROFEN 600 MG TABLET 1 Tab ORAL EVERY 6 HOURS N* FERROUS SULFATE 325 MG (65 MG* Take one(1) tablet daily. TYLENOL ARTHRITIS 650 MG TABL* 2 pills as needed at night Problem List As Of Date 11/16/2020 Noted Resolved Anemia, unspecified [D64.9] 08/28/2008 09/08/2011 MALAISE AND FATIGUE NEC [R53.81, R53.83] 08/28/2008 CALCULUS OF KIDNEY [N20.0] 08/28/2008 DYSMETABOLIC SYNDROME X [E88.81] 08/28/2008 GENERAL OSTEOARTHROSIS [M15.9] 09/09/2008 Iron deficiency anemia [D50.9] 10/15/2008 Abdominal or pelvic swelling, mass, or lump, ri*10/19/2008 08/21/2011 Irregular menstrual cycle [N92.6] 09/08/2011 01/08/2019 Excessive or frequent menstruation [N92.0] 09/08/2011 01/08/2019 Dysmenorrhea [N94.6] 09/08/2011 01/08/2019 Dyspareunia [RRA6419] 09/08/2011 Symptomatic menopausal or female climacteric st*09/08/2011 H/O gastric bypass [Z98.84] 10/05/2011 Cervicalgia [M54.2] 08/22/2013 Backache, unspecified [M54.9] 08/22/2013 B12 deficiency [E53.8] 11/19/2014 Encounter Status:Closed by CONSUELO OSWALD on 11/16/20[facility] 10-18-2020 NotePatient Outreach (FAMPTW) BENNY BRADLEY ([id number]) 1960 F Date Time Provider Department 10/18/20 CONSUELO OSWALD (PSS) FAMPTW During your visit today, we recorded the following information about you: Consuelo Oswald 11/03/2020 5:54 PM Signed POPULATION HEALTH NAVIGATION OUTREACH Action/ Left message for patient to contact at [phone] to schedule Mammogram screening. Also sent [employer] message. Please assist patient with scheduling a Mammogram screening when she returns the call. Contact made with patient or family member? NO Pt identified by name and : NO Outreach Outcome/Action Unable to reach patient: Left message Reason for Outreach Care Gap or Scheduling/Wellness visits Payer: Payor: [employer] / Plan: BLUE CARD PPO / Product Type: PPO / Care Gap Reviewed:: Breast Cancer screening Reminder: Reminder note to check Health Maintenance for items below Health Maintenance items due: HIV SCREENING Completed SHINGRIX VACCINE(1 of 2) Completed DEPRESSION SCREENING due on 12/15/2019 MAMMOGRAM due on 01/09/2020 INFLUENZA(1) Completed Navigation Signature: Consuelo Oswald October 18, 2020 10:11 AM Allergies As of Date: 10/18/2020 Noted Allergy Reaction CODEINE 08/28/2008 4 - Hives MORPHINE 08/28/2008 4 - Hives VENOFER (IRON SUCROSE) 08/28/2008 Comments: sob, cardiac sx Date Reviewed: 01/08/2019 Reviewed by: Radha Alexandre - Fully Assessed Reason for Visit: Population Health Navigation Outreach [3910] Cmt: DEFFERED CARE Prescriptions as of 10/18/2020 Sig: FOLIC ACID 1 MG TABLET Take 1 tablet by mouth once d* IBUPROFEN 600 MG TABLET 1 Tab ORAL EVERY 6 HOURS N* FERROUS SULFATE 325 MG (65 MG* Take one(1) tablet daily. TYLENOL ARTHRITIS 650 MG TABL* 2 pills as needed at night Problem List As Of Date 10/18/2020 Noted Resolved Anemia, unspecified [D64.9] 08/28/2008 09/08/2011 MALAISE AND FATIGUE NEC [R53.81, R53.83] 08/28/2008 CALCULUS OF KIDNEY [N20.0] 08/28/2008 DYSMETABOLIC SYNDROME X [E88.81] 08/28/2008 GENERAL OSTEOARTHROSIS [M15.9] 09/09/2008 Iron deficiency anemia [D50.9] 10/15/2008 Abdominal or pelvic swelling, mass, or lump, ri*10/19/2008 08/21/2011 Irregular menstrual cycle [N92.6] 09/08/2011 01/08/2019 Excessive or frequent menstruation [N92.0] 09/08/2011 01/08/2019 Dysmenorrhea [N94.6] 09/08/2011 01/08/2019 Dyspareunia [[id number]] 09/08/2011 Symptomatic menopausal or female climacteric st*09/08/2011 H/O gastric bypass [Z98.84] 10/05/2011 Cervicalgia [M54.2] 08/22/2013 Backache, unspecified [M54.9] 08/22/2013 B12 deficiency [E53.8] 11/19/2014 Encounter Status:Closed by CONSUELO OSWALD on 11/03/20[facility] 10-18-2020 NoteHNO ID: [id number] Author: Consuelo Oswald Service: ? Author Type: ? Type: Progress Notes Filed: 11/03/2020 5:54 PM Note Text: POPULATION HEALTH NAVIGATION OUTREACH Action/FYI Left message for patient to contact at [phone] to schedule Mammogram screening. Also sent [employer] message. Please assist patient with scheduling a Mammogram screening when she returns the call. Contact made with patient or family member? NO Pt identified by name and : NO Outreach Outcome/Action Unable to reach patient: Left message Reason for Outreach Care Gap or Scheduling/Wellness visits Payer: Payor: [employer] / Plan: BLUE CARD PPO / Product Type: PPO / Care Gap Reviewed:: Breast Cancer screening Reminder: Reminder note to check Health Maintenance for items below Health Maintenance items due: HIV SCREENING Completed SHINGRIX VACCINE(1 of 2) Completed DEPRESSION SCREENING due on 12/15/2019 MAMMOGRAM due on 01/09/2020 INFLUENZA(1) Completed Navigation Signature: Consuelo Oswald October 18, 2020 10:11 [facility] information availableWSum[facility] Work Phone: Evaluation note* Diagnosis Family history of ischemic heart disease and other diseases of the circulatory system documented in this encounter [facility] Work Phone: Evaluation note* Diagnosis Family history of ischemic heart disease and other diseases of the circulatory system documented in this encounter [facility] Work Phone: Instructions* Name Dates Details Patient Instructions Indication:Well woman exam (Renamed from Encounter for well woman exam) Start:11-Jun-2021 Instruction Type:Provider Instructions for Treatment How to Access Health Informa tion Online using Patient Portal and [employer] Apps Indication:Well woman exam (Renamed from Encounter for well woman exam) Start:11-Jun-2021 Instruction Type:Patient Education [facility]; [facility] Work Phone: Instructions* Name Dates Details Patient Instructions Indication:Well woman exam (Renamed from Encounter for well woman exam) Start:11-Jun-2021 Instruction Type:Provider Instructions for Treatment How to Access Health Informa tion Online using Patient Portal and [employer] Apps Indication:Well woman exam (Renamed from Encounter for well woman exam) Start:11-Jun-2021 Instruction Type:Patient Education [facility]; [facility] Work Phone: instructions* Name Dates Details Patient Instructions Indication:Well woman exam (Renamed from Encounter for well woman exam) Start:11-Jun-2021 Instruction Type:Provider Instructions for Treatment How to Access Health Informa tion Online using Patient Portal and [employer] Apps Indication:Well woman exam (Renamed from Encounter for well woman exam) Start:11-Jun-2021 Instruction Type:Patient Education [facility]; [facility] Work Phone: instructions* Name Dates Details Patient Instructions Indication:Well woman exam (Renamed from Encounter for well woman exam) Start:11-Jun-2021 Instruction Type:Provider Instructions for Treatment How to Access Health Informa tion Online using Patient Portal and [employer] Apps Indication:Well woman exam (Renamed from Encounter for well woman exam) Start:11-Jun-2021 Instruction Type:Patient Education [facility]; [facility] Work Phone: instructions* Name Dates Details Patient Instructions Indication:Well woman exam (Renamed from Encounter for well woman exam) Start:11-Jun-2021 Instruction Type:Provider Instructions for Treatment How to Access Health Informa tion Online using Patient Portal and [employer] Apps Indication:Well woman exam (Renamed from Encounter for well woman exam) Start:11-Jun-2021 Instruction Type:Patient Education [facility]; [facility] Work Phone: instructions* Name Dates Details Patient Instructions Indication:BMI 34.0-34.9,adult Start:03-Jul-2022 Instruction Type:Provider Instructions for Treatment How to Access Health Informa tion Online using Patient Portal and [employer] Apps Indication:BMI 34.0-34.9,adult Start:03-Jul-2022 Instruction Type:Patient Education Patient Instructions Indication:Well woman exam (Renamed from Encounter for well woman exam) Start:11-Jun-2021 Instruction Type:Provider Instructions for Treatment How to Access Health Informa tion Online using Patient Portal and [employer] Apps Indication:Well woman exam (Renamed from Encounter for well woman exam) Start:11-Jun-2021 Instruction Type:Patient Education [facility]; [facility] Work Phone: instructions* Name Dates Details Patient Instructions Indication:BMI 34.0-34.9,adult Start:03-Jul-2022 Instruction Type:Provider Instructions for Treatment How to Access Health Informa tion Online using Patient Portal and [employer] Apps Indication:BMI 34.0-34.9,adult Start:03-Jul-2022 Instruction Type:Patient Education Patient Instructions Indication:Well woman exam (Renamed from Encounter for well woman exam) Start:11-Jun-2021 Instruction Type:Provider Instructions for Treatment How to Access Health Informa tion Online using Patient Portal and [employer] Indication:Well woman exam (Renamed from Encounter for well woman exam) Start:11-Jun-2021 Instruction Type:Patient Education [facility]; [facility] Work Phone: instructions* Name Dates Details Patient Instructions Indication:BMI 34.0-34.9,adult Start:03-Jul-2022 Instruction Type:Provider Instructions for Treatment How to Access Health Informa tion Online using Patient Portal and [employer] Indication:BMI 34.0-34.9,adult Start:03-Jul-2022 Instruction Type:Patient Education Patient Instructions Indication:Well woman exam (Renamed from Encounter for well woman exam) Start:11-Jun-2021 Instruction Type:Provider Instructions for Treatment How to Access Health Informa tion Online using Patient Portal and [employer] Apps Indication:Well woman exam (Renamed from Encounter for well woman exam) Start:11-Jun-2021 Instruction Type:Patient Education [facility]; [facility] Work Phone: instructions* Name Dates Details Patient Instructions Indication:BMI 34.0-34.9,adult Start:31-Aug-2022 Instruction Type:Provider Instructions for Treatment How to Access Health Informa tion Online using Patient Portal and [employer] Indication:BMI 34.0-34.9,adult Start:31-Aug-2022 Instruction Type:Patient Education Patient Instructions Indication:BMI 34.0-34.9,adult Start:03-Jul-2022 Instruction Type:Provider Instructions for Treatment How to Access Health Informa tion Online using Patient Portal and [employer] Indication:BMI 34.0-34.9,adult Start:03-Jul-2022 Instruction Type:Patient Education Patient Instructions Indication:Well woman exam (Renamed from Encounter for well woman exam) Start:11-Jun-2021 Instruction Type:Provider Instructions for Treatment How to Access Health Informa tion Online using Patient Portal and [employer] Indication:Well woman exam (Renamed from Encounter for well woman exam) Start:11-Jun-2021 Instruction Type:Patient Education [facility]; [facility] Work Phone: Instructions* Name Dates Details Patient Instructions Indication:BMI 34.0-34.9,adult Start:31-Aug-2022 Instruction Type:Provider Instructions for Treatment How to Access Health Informa tion Online using Patient Portal and [employer] Indication:BMI 34.0-34.9,adult Start:31-Aug-2022 Instruction Type:Patient Education Patient Instructions Indication:BMI 34.0-34.9,adult Start:03-Jul-2022 Instruction Type:Provider Instructions for Treatment How to Access Health Informa tion Online using Patient Portal and [employer] Indication:BMI 34.0-34.9,adult Start:03-Jul-2022 Instruction Type:Patient Education Patient Instructions Indication:Well woman exam (Renamed from Encounter for well woman exam) Start:11-Jun-2021 Instruction Type:Provider Instructions for Treatment How to Access Health Informa tion Online using Patient Portal and [employer] Indication:Well woman exam (Renamed from Encounter for well woman exam) Start:11-Jun-2021 Instruction Type:Patient Education [facility]; [facility] Work Phone: Instructions* Name Dates Details Patient Instructions Indication:BMI 34.0-34.9,adult Start:31-Aug-2022 Instruction Type:Provider Instructions for Treatment How to Access Health Informa tion Online using Patient Portal and [employer] Indication:BMI 34.0-34.9,adult Start:31-Aug-2022 Instruction Type:Patient Education Patient Instructions Indication:BMI 34.0-34.9,adult Start:03-Jul-2022 Instruction Type:Provider Instructions for Treatment How to Access Health Informa tion Online using Patient Portal and [employer] Indication:BMI 34.0-34.9,adult Start:03-Jul-2022 Instruction Type:Patient Education Patient Instructions Indication:Well woman exam (Renamed from Encounter for well woman exam) Start:11-Jun-2021 Instruction Type:Provider Instructions for Treatment How to Access Health Informa tion Online using Patient Portal and [employer] Indication:Well woman exam (Renamed from Encounter for well woman exam) Start:11-Jun-2021 Instruction Type:Patient Education [facility]; [facility] Work Phone: Insipglfions* Name Dates Details How to Access Health Informa tion Online using Patient Portal and [employer] Indication:Non-smoker Start:30-Apr-2023 Instruction Type:Patient Education Patient Instructions Indication:Non-smoker Start:30-Apr-2023 Instruction Type:Provider Instructions for Treatment Patient Instructions Indication:BMI 34.0-34.9,adult Start:31-Aug-2022 Instruction Type:Provider Instructions for Treatment How to Access Health Informa tion Online using Patient Portal and [employer] Apps Indication:BMI 34.0-34.9,adult Start:31-Aug-2022 Instruction Type:Patient Education Patient Instructions Indication:BMI 34.0-34.9,adult Start:03-Jul-2022 Instruction Type:Provider Instructions for Treatment How to Access Health Informa tion Online using Patient Portal and [employer] Indication:BMI 34.0-34.9,adult Start:03-Jul-2022 Instruction Type:Patient Education Patient Instructions Indication:Well woman exam (Renamed from Encounter for well woman exam) Start:11-Jun-2021 Instruction Type:Provider Instructions for Treatment How to Access Health Informa tion Online using Patient Portal and [employer] Apps Indication:Well woman exam (Renamed from Encounter for well woman exam) Start:11-Jun-2021 Instruction Type:Patient Education [facility]; [facility] Work Phone: instructions* Name Dates Details How to Access Health Informa tion Online using Patient Portal and [employer] Indication:Non-smoker Start:30-Apr-2023 Instruction Type:Patient Education Patient Instructions Indication:Non-smoker Start:30-Apr-2023 Instruction Type:Provider Instructions for Treatment Patient Instructions Indication:BMI 34.0-34.9,adult Start:31-Aug-2022 Instruction Type:Provider Instructions for Treatment How to Access Health Informa tion Online using Patient Portal and [employer] Indication:BMI 34.0-34.9,adult Start:31-Aug-2022 Instruction Type:Patient Education Patient Instructions Indication:BMI 34.0-34.9,adult Start:03-Jul-2022 Instruction Type:Provider Instructions for Treatment How to Access Health Informa tion Online using Patient Portal and [employer] Indication:BMI 34.0-34.9,adult Start:03-Jul-2022 Instruction Type:Patient Education Patient Instructions Indication:Well woman exam (Renamed from Encounter for well woman exam) Start:11-Jun-2021 Instruction Type:Provider Instructions for Treatment How to Access Health Informa tion Online using Patient Portal and [employer] Indication:Well woman exam (Renamed from Encounter for well woman exam) Start:11-Jun-2021 Instruction Type:Patient Education [facility]; [facility] Work Phone: Instructions* Name Dates Details How to Access Health Informa tion Online using Patient Portal and [employer] Indication:Non-smoker Start:30-Apr-2023 Instruction Type:Patient Education Patient Instructions Indication:Non-smoker Start:30-Apr-2023 Instruction Type:Provider Instructions for Treatment Patient Instructions Indication:BMI 34.0-34.9,adult Start:31-Aug-2022 Instruction Type:Provider Instructions for Treatment How to Access Health Informa tion Online using Patient Portal and [employer] Indication:BMI 34.0-34.9,adult Start:31-Aug-2022 Instruction Type:Patient Education Patient Instructions Indication:BMI 34.0-34.9,adult Start:03-Jul-2022 Instruction Type:Provider Instructions for Treatment How to Access Health Informa tion Online using Patient Portal and [employer] Indication:BMI 34.0-34.9,adult Start:03-Jul-2022 Instruction Type:Patient Education Patient Instructions Indication:Well woman exam (Renamed from Encounter for well woman exam) Start:11-Jun-2021 Instruction Type:Provider Instructions for Treatment How to Access Health Informa tion Online using Patient Portal and [employer] Indication:Well woman exam (Renamed from Encounter for well woman exam) Start:11-Jun-2021 Instruction Type:Patient Education [facility]; [facility] Work Phone: Instructions* Name Dates Details How to Access Health Informa tion Online using Patient Portal and [employer] Indication:Non-smoker Start:30-Apr-2023 Instruction Type:Patient Education Patient Instructions Indication:Non-smoker Start:30-Apr-2023 Instruction Type:Provider Instructions for Treatment Patient Instructions Indication:BMI 34.0-34.9,adult Start:31-Aug-2022 Instruction Type:Provider Instructions for Treatment How to Access Health Informa tion Online using Patient Portal and [employer] Indication:BMI 34.0-34.9,adult Start:31-Aug-2022 Instruction Type:Patient Education Patient Instructions Indication:BMI 34.0-34.9,adult Start:03-Jul-2022 Instruction Type:Provider Instructions for Treatment How to Access Health Informa tion Online using Patient Portal and [employer] Apps Indication:BMI 34.0-34.9,adult Start:03-Jul-2022 Instruction Type:Patient Education Patient Instructions Indication:Well woman exam (Renamed from Encounter for well woman exam) Start:11-Jun-2021 Instruction Type:Provider Instructions for Treatment How to Access Health Informa tion Online using Patient Portal and [employer] Apps Indication:Well woman exam (Renamed from Encounter for well woman exam) Start:11-Jun-2021 Instruction Type:Patient Education [facility]; [facility] Work Phone: reason for referral (narrative)No reason for referral information [facility] Work Phone: Family History No Family History Records FoundUnknown Family Member Name Dates Details Brother 1 Comments:hypothyroidism, MILAGROS H, DM II, RA, CAD/stents 40's Status:Active Brother 2 Status:Active Father Comments:Diabetes I, hx CO a ge 41, smoker, CAD 60 Status:Active Maternal Grandfather Comments:Stroke Status:Active Maternal Grandmother Comments:CAD Status:Active Mother Comments:hyperthyroid, HTN, anemia, alive and live alone. Brenda Status:Active Non-Contributory Family Hist ory Status:Active Sister 1 Comments:hypothyroidism, con torted internal carotid Status:Active Sister 2 Comments:ear tumor Status:Active Unknown Family Member Name Dates Details Brother 1 Comments:hypothyroidism, MILAGROS H, DM II, RA, CAD/stents 40's Status:Active Brother 2 Status:Active Father Comments:Diabetes I, hx CO a ge 41, smoker, CAD 60 Status:Active Maternal Grandfather Comments:Stroke Status:Active Maternal Grandmother Comments:CAD Status:Active Mother Comments:hyperthyroid, HTN, anemia, alive and live alone. Brenda Status:Active Non-Contributory Family Hist ory Status:Active Sister 1 Comments:hypothyroidism, con torted internal carotid Status:Active Sister 2 Comments:ear tumor Status:Active Unknown Family Member Name Dates Details Brother 1 Comments:hypothyroidism, MILAGROS H, DM II, RA, CAD/stents 40's Status:Active Brother 2 Status:Active Father Comments:Diabetes I, hx CO a ge 41, smoker, CAD 60 Status:Active Maternal Grandfather Comments:Stroke Status:Active Maternal Grandmother Comments:CAD Status:Active Mother Comments:hyperthyroid, HTN, anemia, alive and live alone. Brenda Status:Active Non-Contributory Family Hist ory Status:Active Sister 1 Comments:hypothyroidism, con torted internal carotid Status:Active Sister 2 Comments:ear tumor Status:Active Unknown Family Member Name Dates Details Brother 1 Comments:hypothyroidism, MILAGROS H, DM II, RA, CAD/stents 40's Status:Active Brother 2 Status:Active Father Comments:Diabetes I, hx CO a ge 41, smoker, CAD 60 Status:Active Maternal Grandfather Comments:Stroke Status:Active Maternal Grandmother Comments:CAD Status:Active Mother Comments:hyperthyroid, HTN, anemia, alive and live alone. Brenda Status:Active Non-Contributory Family Hist ory Status:Active Sister 1 Comments:hypothyroidism, con torted internal carotid Status:Active Sister 2 Comments:ear tumor Status:Active Unknown Family Member Name Dates Details Brother 1 Comments:hypothyroidism, MILAGROS H, DM II, RA, CAD/stents 40's Status:Active Brother 2 Status:Active Father Comments:Diabetes I, hx CO a ge 41, smoker, CAD 60 Status:Active Maternal Grandfather Comments:Stroke Status:Active Maternal Grandmother Comments:CAD Status:Active Mother Comments:hyperthyroid, HTN, anemia, alive and live alone. Brenda Status:Active Non-Contributory Family Hist ory Status:Active Sister 1 Comments:hypothyroidism, con torted internal carotid Status:Active Sister 2 Comments:ear tumor Status:Active Unknown Family Member Name Dates Details Brother 1 Comments:hypothyroidism, MILAGROS H, DM II, RA, CAD/stents 40's Status:Active Brother 2 Status:Active Father Comments:Diabetes I, hx CO a ge 41, smoker, CAD 60 Status:Active Maternal Grandfather Comments:Stroke Status:Active Maternal Grandmother Comments:CAD Status:Active Mother Comments:hyperthyroid, HTN, anemia, alive and live alone. Brenda Status:Active Non-Contributory Family Hist ory Status:Active Sister 1 Comments:hypothyroidism, con torted internal carotid Status:Active Sister 2 Comments:ear tumor Status:Active Unknown Family Member Name Dates Details Brother 1 Comments:hypothyroidism, MILAGROS H, DM II, RA, CAD/stents 40's Status:Active Brother 2 Status:Active Father Comments:Diabetes I, hx CO a ge 41, smoker, CAD 60 Status:Active Maternal Grandfather Comments:Stroke Status:Active Maternal Grandmother Comments:CAD Status:Active Mother Comments:hyperthyroid, HTN, anemia, alive and live alone. Brenda Status:Active Non-Contributory Family Hist ory Status:Active Sister 1 Comments:hypothyroidism, con torted internal carotid Status:Active Sister 2 Comments:ear tumor Status:Active Unknown Family Member Name Dates Details Brother 1 Comments:hypothyroidism, MILAGROS H, DM II, RA, CAD/stents 40's Status:Active Brother 2 Status:Active Father Comments:Diabetes I, hx CO a ge 41, smoker, CAD 60 Status:Active Maternal Grandfather Comments:Stroke Status:Active Maternal Grandmother Comments:CAD Status:Active Mother Comments:hyperthyroid, HTN, anemia, alive and live alone. Brenda Status:Active Non-Contributory Family Hist ory Status:Active Sister 1 Comments:hypothyroidism, con torted internal carotid Status:Active Sister 2 Comments:ear tumor Status:Active Unknown Family Member Name Dates Details Brother 1 Comments:hypothyroidism, MILAGROS H, DM II, RA, CAD/stents 40's Status:Active Brother 2 Status:Active Father Comments:Diabetes I, hx CO a ge 41, smoker, CAD 60 Status:Active Maternal Grandfather Comments:Stroke Status:Active Maternal Grandmother Comments:CAD Status:Active Mother Comments:hyperthyroid, HTN, anemia, alive and live alone. Brenda Status:Active Non-Contributory Family Hist ory Status:Active Sister 1 Comments:hypothyroidism, con torted internal carotid Status:Active Sister 2 Comments:ear tumor Status:Active Unknown Family Member Name Dates Details Brother 1 Comments:hypothyroidism, MILAGROS H, DM II, RA, CAD/stents 40's Status:Active Brother 2 Status:Active Father Comments:Diabetes I, hx CO a ge 41, smoker, CAD 60 Status:Active Maternal Grandfather Comments:Stroke Status:Active Maternal Grandmother Comments:CAD Status:Active Mother Comments:hyperthyroid, HTN, anemia, alive and live alone. Brenda Status:Active Non-Contributory Family Hist ory Status:Active Sister 1 Comments:hypothyroidism, con torted internal carotid Status:Active Sister 2 Comments:ear tumor Status:Active Relationship Condition Age at Onset Recorded Date/T prasanna Not Specified Rheumatoid arthritis Unknown Diabetes mellitus Unknown Cardiac disease Unknown Disorder of thyroid Unknown Unknown Family Member Name Dates Details Brother 1 Comments:hypothyroidism, MILAGROS H, DM II, RA, CAD/stents 40's Status:Active Brother 2 Status:Active Father Comments:Diabetes I, hx CO a ge 41, smoker, CAD 60 Status:Active Maternal Grandfather Comments:Stroke Status:Active Maternal Grandmother Comments:CAD Status:Active Mother Comments:hyperthyroid, HTN, anemia, alive and live alone. Brenda Status:Active Non-Contributory Family Hist ory Status:Active Sister 1 Comments:hypothyroidism, con torted internal carotid Status:Active Sister 2 Comments:ear tumor Status:Active Unknown Family Member Name Dates Details Brother 1 Comments:hypothyroidism, MILAGROS H, DM II, RA, CAD/stents 40's Status:Active Brother 2 Status:Active Father Comments:Diabetes I, hx CO a ge 41, smoker, CAD 60 Status:Active Maternal Grandfather Comments:Stroke Status:Active Maternal Grandmother Comments:CAD Status:Active Mother Comments:hyperthyroid, HTN, anemia, alive and live alone. Brenda Status:Active Non-Contributory Family Hist ory Status:Active Sister 1 Comments:hypothyroidism, con torted internal carotid Status:Active Sister 2 Comments:ear tumor Status:Active Unknown Family Member Name Dates Details Brother 1 Comments:hypothyroidism, MILAGROS H, DM II, RA, CAD/stents 40's Status:Active Brother 2 Comments:OA Status:Active Father Comments:Diabetes II, hx CO age 41, smoker, CAD 60 Status:Active Maternal Grandfather Comments:Stroke Status:Active Maternal Grandmother Comments:CAD Status:Active Mother Comments:hyperthyroid, HTN, anemia, alive and live alone. Brenda Status:Active Non-Contributory Family Hist ory Status:Active Sister 1 Comments:hypothyroidism, con torted internal carotid Status:Active Sister 2 Comments:ear tumor Status:Active Unknown Family Member Name Dates Details Brother 1 Comments:hypothyroidism, MILAGROS H, DM II, RA, CAD/stents 40's Status:Active Brother 2 Comments:OA Status:Active Father Comments:Diabetes II, hx CO age 41, smoker, CAD 60 Status:Active Maternal Grandfather Comments:Stroke Status:Active Maternal Grandmother Comments:CAD Status:Active Mother Comments:hyperthyroid, HTN, anemia, alive and live alone. Brenda Status:Active Non-Contributory Family Hist ory Status:Active Sister 1 Comments:hypothyroidism, con torted internal carotid Status:Active Sister 2 Comments:ear tumor Status:Active Unknown Family Member Name Dates Details Brother 1 Comments:hypothyroidism, MILAGROS H, DM II, RA, CAD/stents 40's Status:Active Brother 2 Comments:OA Status:Active Father Comments:Diabetes II, hx CO age 41, smoker, CAD 60 Status:Active Maternal Grandfather Comments:Stroke Status:Active Maternal Grandmother Comments:CAD Status:Active Mother Comments:hyperthyroid, HTN, anemia, alive and live alone. Brenda Status:Active Non-Contributory Family Hist ory Status:Active Sister 1 Comments:hypothyroidism, con torted internal carotid Status:Active Sister 2 Comments:ear tumor Status:Active Unknown Family Member Name Dates Details Brother 1 Comments:hypothyroidism, MILAGROS H, DM II, RA, CAD/stents 40's Status:Active Brother 2 Comments:OA Status:Active Father Comments:Diabetes II, hx CO age 41, smoker, CAD 60 Status:Active Maternal Grandfather Comments:Stroke Status:Active Maternal Grandmother Comments:CAD Status:Active Mother Comments:hyperthyroid, HTN, anemia, alive and live alone. Brenda Status:Active Non-Contributory Family Hist ory Status:Active Sister 1 Comments:hypothyroidism, con torted internal carotid Status:Active Sister 2 Comments:ear tumor Status:Active Advance Directives No Advanced Directives Records Found Name Dates Details Immunization Registry [place] - Effective on 04/17/2021. Expiration date unspecified Effective:17-Apr-2021 Name Dates Details Immunization Registry [place] - Effective on 04/17/2021. Expiration date unspecified Effective:17-Apr-2021 Name Dates Details Immunization Registry [place] - Effective on 04/17/2021. Expiration date unspecified Effective:17-Apr-2021 Name Dates Details Immunization Registry [place] - Effective on 04/17/2021. Expiration date unspecified Effective:17-Apr-2021 Name Dates Details Immunization Registry [place] - Effective on 04/17/2021. Expiration date unspecified Effective:17-Apr-2021 Name Dates Details Immunization Registry [place] - Effective on 04/17/2021. Expiration date unspecified Effective:17-Apr-2021 Name Dates Details Immunization Registry [place] - Effective on 04/17/2021. Expiration date unspecified Effective:17-Apr-2021 Name Dates Details Immunization Registry [place] - Effective on 04/17/2021. Expiration date unspecified Effective:17-Apr-2021 Name Dates Details Immunization Registry [place] - Effective on 04/17/2021. Expiration date unspecified Effective:17-Apr-2021 Name Dates Details Immunization Registry [place] - Effective on 04/17/2021. Expiration date unspecified Effective:17-Apr-2021 Name Dates Details Immunization Registry [place] - Effective on 04/17/2021. Expiration date unspecified Effective:17-Apr-2021 Name Dates Details Immunization Registry [place] - Effective on 04/17/2021. Expiration date unspecified Effective:17-Apr-2021 Name Dates Details Immunization Registry [place] - Effective on 04/17/2021. Expiration date unspecified Effective:17-Apr-2021 Summary Purpose Chief Complaint and Reason for Visit Chief Complaint PRE OP PRE OP Chief Complaint PRE OP PRE OP ELEVATED LIVER ENZYMES HEMATURIA Chief Complaint SCREENING Liver disease, unspecified Chief Complaint Admit Date ELEVATED LFT'S December 30, 2024 2:48 pm Reason for Visit Admit Date Abnormal LFTs (liver function tests) Dec 2:48pm Liver hemangioma December 30, 2024 2:48 pm Metabolic dysfunction-associ ated steatotic liver disease (MASLD) December 30, 2024 2:48pm Reason for Referral Specialty Diagnoses / Procedures Referred By Vinod t Referred To Contact Radiology Diagnoses Family history of ischemic heart disease and other diseases of the circulatory system Procedures CT cardiac scoring wo IV contrast Patricia Patino MD [address] [place] [address] Referral ID Status Reason Start Date Expiration Date Visits Requested Visits Authorized [id number] Authorized Perform Procedure 3 05/07/2024 1 1 Specialty Diagnoses / Procedures Referred By Contac t Referred To Contact Radiology Diagnoses Family history of ischemic heart disease and other diseases of the circulatory system Procedures CT cardiac scoring wo IV contrast Patricia Patino MD [address] [place] [address] Additional Source Comments INFORMATION SOURCE (unrecogn ized section and content) DATE CREATED AUTHOR 09/09/2021 [facility] DATE CREATED AUTHOR AUTHOR'S ORGANIZ ATION 09/01/2022 [facility] DATE CREATED AUTHOR AUTHOR'S ORGANIZ ATION 03/30/2024 [facility] DATE CREATED AUTHOR AUTHOR'S ORGANIZ ATION [facility] Teams (unrecognized sec tion and content) Team Status: Active Member Role Status Dates No Primary Care Physician Family Provider Active Dr. Patricia Patino MD Primary Care Provider Active Team Status: Active Member Role Status Dates Dr. Patricia Patino MD Primary Care Provider Active Dr. Yovanny Paez MD Attending Provider Active Dr. Alejandro Rodgers DO Referring Provider Active Team Status: Inactive Member Role Status Dates Dr. Patricia Patino MD Primary Care Provider Active Dr. Alejandro Rodgers DO Attending Provider Active Team Status: Inactive Member Role Status Dates Dr. Patricia Patino MD Primary Care Provi rhona, Attending Provider, Referring Provider Active Team Status: Active Member Role Status Dates Dr. Patricia Patino MD Primary Care Provi rhona, Attending Provider, Referring Provider Active Team Status: Active Member Role Status Dates Dr. Patricia Patino MD Primary Care Provider Active Self Referred Attending Provider Active Team Status: Active Member Role Status Dates Dr. Patricia Patino MD Primary Care Provider Active Team Status: Inactive Member Role Status Dates Dr. Patricia Patino MD Primary Care Provider Active Start: December 30, 2024 End: December 30, 2024 Dr. Patricia Patino MD Referring Provider Active Start: December 30, 2024 End: December 30, 2024 Dr. Merlin Palacio MD Attending Provider Active Start: December 30, 2024 End: December 30, 2024 Goals (unrecognized section and content) Goals may be documented in a n alternate sectionGoals may be documented in an alternate sectionGoals may be documented in an alternate sectionGoals may be documented in an alternate sectionGoals may be documented in an alternate section Reason for Visit (unrecogniz ed section and content) Specialty Diagnoses / Procedures Referred By Vinod t Referred To Contact Radiology Diagnoses Family history of ischemic heart disease and other diseases of the circulatory system Procedures CT cardiac scoring wo IV contrast Patricia Patino MD [address] [facility] [address] [place] [address] Referral ID Status Reason Start Date Expiration Date Visits Requested Visits Authorized [id number] Authorized Perform Procedure 3 05/07/2024 1 1 Specialty Diagnoses / Procedures Referred By Contkarin coello Referred To Contact Radiology Diagnoses Family history of ischemic heart disease and other diseases of the circulatory system Procedures CT cardiac scoring wo IV contrast Patricia Patino MD [address] [place] [address] FOR RECORDS PERTAINING TO PATIENTS WHO ARE OR HAVE BEEN ENROLLED IN A CHEMICAL DEPENDENCY/SUBSTANCEABUSE PROGRAM, SOME INFORMATION MAY BE OMITTED. This clinical summary was aggregated from multiple sources. Caution should be exercised in using it in the provision of clinical care. This summary normalizes information from multiple sources, and as a consequence, information in this document may materially change the coding, format and clinical context of patient data. In addition, data may be omitted in some cases. CLINICAL DECISIONS SHOULD BE BASED ON THE PRIMARY CLINICAL RECORDS. [facility]. provides no warranty or guarantee of the accuracy or completeness of information in this document.
== END | disposition home or self-care (01) ==
LOC: OPBI 07:37
PROVIDERS: PCP Internal Medicine; Referring Provider Internal Medicine; Visit Provider Internal Medicine
DX: Z12.31 Encounter for screening mammogram for malignant neoplasm of breast (principal)
CPT/HCPCS: 77063; 77067

== ENCOUNTER → 2025-05-13 | Outpatient (CLI) | payer OTHER, SELFPAY ==
--- OUTSIDE RECORDS SUMMARY | 2025-05-13 07:29 | XMS RPT_ITS | CCD ---
Author Organization [facility] Care Team Providers Care Lithographed Plate Inspector Name Role Phone Joanne Patino MD Unavailable [phone] RAFAELA Lopez LPN Unavailable Unavailable Unavailable Unavailable Joanne Patino MD Unavailable Christine Moreno LPN Unavailable Unavailable Chen Mcdonough Unavailable [phone] Radha Bains MA Unavailable Unavailable Jen Ann Unavailable Joanne Patino MD Attending Unavailable Joanne Patino MD Referring Unavailable Joanne Patino MD Consulting Unavailable Dr. Joanne Patino Primary Care Provider Dr. Yovanny Paez Attending Provider Dr. Alejandro Rodgers Referring Provider Unavailable Primary Care Provider Unavailabl e Mantejinderk ELECTROSLAG WELDING MACHINE OPERATOR, Kristina Unavailable Unavailable JOANNE PATINO Referring Unavailable Dr. Joanne Patino MD Primary Care Provider Dr. Joanne Patino MD Referring Provider Dr. Merlin Palacio MD Attending Provider Dr. Joanne Patino MD Attending Provider Joanne Patino Referring Unavailable Merlin Palacio Attending Unavailable Joanne Patino Primary Care Unavailable Joanne Patino Referring Unavailable Merlin Palacio Attending Unavailable Joanne Patino Primary Care Unavailable Joanne Patino Attending Unavailable Joanne Patino Referring Unavailable Joanne Patino Primary Care Unavailable Joanne Patino Primary Care Unavailable Merlin Palacio Attending Unavailable Merlin Palacio Referring Unavailable Allergies Allergy Classification Reported Allergen(s) Allergy Type Date of Onset Reaction(s) Facility (20 sources) iron sucrose; Translations: [Venofer *HEMATOPOIETIC AGENTS*] Drug Allergy Difficulty breathing, Chest pain, Shortness of breath [facility] Work Phone: (20 sources) Codeine/Codeine Derivatives; Translations: [Codeine/Codein e Derivatives] Allergy to substance (finding) [facility]; [facility] Work Phone: (20 sources) Morphine Derivatives; Translations: [Morphine Derivatives] Allergy to substance (finding) [facility]; [facility] Work Phone: (6 sources) Codeine Drug Allergy 04-05-[address] [facility] (6 sources) Morphine Drug Allergy 04-05-[address] [facility] (7 sources) iron sucrose complex; Translations: [iron sucrose complex] Allergy to substance 04-05-[address] [facility] (1 source) ALLERGIES NOT ON FILE; Translations: [ALLERGIES NOT ON FILE] Propensity to adverse reactions (disorder) [facility] 2 Repository (2 sources) Iron Drug Allergy 12-31-[address] [facility] (1 source) Codeine Drug Allergy 12-31-[address] [facility] Repository (1 source) Iron Drug Allergy 12-31-[address] [facility] Repository (1 source) Morphine Drug Allergy 12-31-19 [facility] Repository Medications Current Medications Medication Drug Class(es) [...] Quantity: 30 {Tablet} Refills: 0 Ordered: 11-Jun-2021 Joanne Patino MD, MD, Dana M Start : 17-Apr-2021 Active Semaglutide (2 sources) Start: 10-21-2024 Semaglutide 0. 25 mg or [...] Quantity: 60 {Tablet} Refills: 0 Ordered: 11-Jun-2021 Joanne Patino MD, MD, Joanne Frazier Start : 17-Apr-2021 Active Start: 04-05-2019 End: 12-30-2024 take 1 capsule by mouth every six hours Acetaminophen (Tylenol) 325 mg capsule Discontinued 325 mg PO EVERY 6 HOURS April 05, 2019 12:00am December 30, 2024 3:49pm BD Insulin Syringe 1 mL 25 x 1" miscellaneous syringe, empty disposable (18 sources) Start: 06-23-2021 BD Insulin Syr alirio 1 mL 25 x 1" miscellaneous syringe, empty disposable 1 (one) Each as directed with Vtiamin B12 injection for 0 days Quantity: 1 {Each} Refills: 3 Ordered: 23-Jun-2021 Radha Bains MA Start : 23-Jun-2021 Active BD Insulin Syringe 25G X 1" 1 ML Miscellaneous (5 sources) Start: 06-23-2021 BD Insulin Syr alirio 25G X 1" 1 ML Miscellaneous 1 (one) Each as directed with Vtiamin B12 injection for 0 days Quantity: 1 {Each} Refills: 3 Ordered: 23-Jun-2021 Joanne Patino MD, MD, Dana M Start : 23-Jun-2021 Active biotin 10 mg oral tablet (18 sources) take 1 mg by mouth once daily biotin 10 mg oral tablet daily (10 mg) Active Comments: 4 a day of natures [facility] biotin gummies Comment on above: 4 a day of natures [facility] biotin gummies Caltrate 600-D Plus Minerals 600 [...] Quantity: 60 {Tablet} Refills: 0 Ordered: 11-Jun-2021 Joanne Patino MD, MD, Dana M Start : 11-Jun-2021 Active Start: 04-05-2019 take 1 tablet by bay th once daily Ferrous Sulfate 325 mg (65 mg iron) tablet Active 325 mg PO DAILY April 05, 2019 12:00am ibuprofen 600 mg oral tablet (20 sources) Nonsteroidal Anti-inflammatory Drug Start: 04-17-2021 take 1 tablet by mouth every six hours as needed Ibuprofen 600 MG Oral Tablet 1 (one) Tablet q 6 hours prn for 0 days Quantity: 30 {Tablet} Refills: 0 Ordered: 11-Jun-2021 Joanne Patino MD, MD, Dana M Start : 17-Apr-2021 Active Start: 04-05-2019 take 200 mg by mouth every six hours Ibuprofen Active 200 MG PO EVERY 6 HOURS April 04, 2019 11:00pm Start: 04-05-2019 End: 12-30-2024 take 2 tablets by mouth every six hours Ibuprofen 100 mg tablet Discontinued 200 mg PO EVERY 6 HOURS April 05, 2019 12:00am December 30, 2024 3:49pm kedovoz-idfi-rftep-oreg-capr yl 100 mg-150 mg- 50 mg-150 mg oral capsule (18 sources) qsotkfy-jkmh-mck yu-keyc-hdgato 100 mg-150 mg- 50 mg-150 mg oral capsule daily (100 mg-150 mg- 50 mg-150) Active vitamin b12 1 mg/ml injectab le solution (20 sources) Vitamin B12 Star t: 01-20 cyanocobalamin (vit B-12) 1, 000 mcg/mL injection solution 1 (one) Milliliter q monthly for 90 days Quantity: 3 {Milliliter} Refills: 3 Ordered: 30-Jan-2023 Joanne Patino MD, MD, Dana M Start : 30-Jan-2023 Active Start: 11-13-2021 cyanocobalamin (vit B-12) 1,000 mcg/mL injection solution 1 (one) Milliliter q monthly for 0 days Quantity: 3 {Milliliter} Refills: 3 Ordered: 13-Nov-2021 Jacqueline ROOT, Joanne Riggins MD Start : 13-Nov-2021 Active Start: 06-23-2021 Cyanocobalamin 1000 MCG/ML Injection Solution 1 (one) Milliliter every 2 weeks for 4 weeks than every month for 90 days Refills: 3 Ordered: 23-Jun-2021 Jacqueline ROOT, Joanne Patino MD, Joanne Frazeir Start : 23-Jun-2021 Active Vitamin D3 25 [...] she has had for . 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] Onset: 12-31-2024 06-11-2021 Episodic Comment on above: 79 high will do cologuard Residual codes; unclassified (20 sources) FH: Cardiovascular disease; Translations: [Family history of cardiovascular disease] 06-11-2021 Episodic Comment on above: dad 41 yo stress 201 5 dad 41 yo stress 201 5 CCTA 0 10- Residual codes; unclassified (20 sources) Postmenopausal state; [...] Test Name Value Interpretation Reference Range Facility Breast imaging reportOrdered By: Kit Cortés on 01-08-2025 Study report [facility] Imaging Services [address] [place] [address] [id number] SCRN MAMM (CAD)W/REGGIE BILAT MR#: [id number] Acct: [id number] Name: BENNY BRADLEY Rep #: [id number] : 1960 F 64 From: Petar Cortés MD PCP: Dr. Joanne Patino MD Status: REG C SUMEET Study:SCRN MAMM (CAD)W/REGGIE BILAT Date of Exa m: 01/08/25 Exam# [id number] Ordering Dr: Joanne Patino MD EXAM: SCRN MAMM (CAD)W/REGGIE BILAT DATE: 01/08/2025 CLINICAL HISTORY: F, Age 64 y/o , SCREENING No family history. History of prior left needle breast biopsy. BREAST CANCER RISK ASSESSMENT: Not assessed. TECHNIQUE: Bilateral screening digital breast tomosynthesis with 2D and 3D images. Computeraided detection. COMPARISON: Prior exam(s) dated November 29, 2023.. FINDINGS: TISSUE DENSITY: The breast tissue is composed of scattered areas of fibroglandular density. Bilateral Breast Mammographic Findings: No significant masses, calcifications or other abnormalities are identified. No suspicious masses, areas of developing architectural distortion, or suspicious calcifications. There has been no significant interval change. BI/SCRN MAMM (CAD)W/REGGIE BILAT IMPRESSION: Stable examination. OVERALL FINAL ASSESSMENT BI-RADS 1: NEGATIVE. RECOMMEND ANNUAL MAMMOGRAPHIC SCREENING. RECOMMENDATION: Routine annual follow-up in 1 Year A letter with findings and recommendations will be mailed to the patient. Reading Location: [place] [address] CC: Dr. Joanne Patino MD ~ Product Development Specialist: Signed [facility] SCRN MAMM (CAD)W/REGGIE BILATo n 01-08-2025 SCRN MAMM (CAD)W/REGGIE BILAT [facility] Imaging Services [address] [place] [address] [id number] SCRN MAMM (CAD)W/REGGIE BILAT MR#: [id number] Acct: [id number] Name: BENNY BRADLEY Rep #: [id number] : 1960 F 64 From: Kit bloom MD PCP: Dr. Joanne Patino MD Status: [facility] Study: SCRN MAMM (CAD)W/REGGIE BILAT Date of Exam: 12/21 04/16 Exam# [id number] Ordering Dr: Joanne Patino MD EXAM: SCRN MAMM (CAD)W/REGGIE BILAT DATE: 01/08/2025 CLINICAL HISTORY: F, Age 64 y/o , SCREENING No family history. History of prior left needle breast biopsy. BREAST CANCER RISK ASSESSMENT: Not assessed. TECHNIQUE: Bilateral screening digital breast tomosynthesis with 2D and 3D images. Computer aided detection. COMPARISON: Prior exam(s) dated November 29, 2023.. FINDINGS: TISSUE DENSITY: The breast tissue is composed of scattered areas of fibroglandular density. Bilateral Breast Mammographic Findings: No significant masses, calcifications or other abnormalities are identified. No suspicious masses, areas of developing architectural distortion, or suspicious calcifications. There has been no significant interval change. BI/SCRN MAMM (CAD)W/REGGIE BILAT IMPRESSION: Stable examination. OVERALL FINAL ASSESSMENT BI-RADS 1: NEGATIVE. RECOMMEND ANNUAL MAMMOGRAPHIC SCREENING. RECOMMENDATION: Routine annual follow-up in 1 Year A letter with findings and recommendations will be mailed to the patient. Reading Location: [place] [address] CC: Dr. Joanne Patino MD Product Development Specialist: Signed Normal [facility] Gastroenterology Visit Repor ton 12-30-2024 Gastroenterology Visit Report [facility] Gastroenterology [address] [place] [address] OFFICE VISIT Date of Service: 12/30/24 MR#: [id number] Acct: [id number] Name: BENNY BRADLEY Rep #: [id number] : 1960 Provider: Dr. Merlin lopez MD Age/Sex: 64/F Location: [facility] Status: Signed Intake Vital Signs 06/17/21 16:25 [...] mg (2 0.25 mg subcut QWEEK 10/21/2412/21 0/25 History mg/3 mL) subcutaneous pen injector REPLACED BY [facility] Medical History (Updated 12/30/24 @ 16:02 by [...] and symmetri (more content not included)... Normal [facility] Basophil percentageOrdered B y: Joanne Jacqueline on 06-12-2023 Creatinine [Mass/Vol] 1.3 mg/dL 0.55-1.02 [facility] Laboratory - Chemistry and C hemistry - challengeOrdered By: Joanne Patino on 06-12-2023 GFR/1.73 sq M.predicted among non-blacks MDRD (S/P/Bld) [Vol rate/Area] 45.0000 mL/min/{1.73_m2} >[address] [facility] [address] for calcium scoring WO co ntrast and CTA W contrast IV Heart and coronary arterieson 05-17-2023 1. Small paraesophag eal hernia amidst multiple gastric clips/staple line. 2. 11 mm hepatic lucency. See below. 3. Coronary artery calcium score of 0*. *Coronary artery calcium scoring may be helpful in predicting the risk for future coronary heart disease events. According to the [employer] [employer] Clinical Expert Consensus Task Force, such testing provides important prognostic information in patients with more than one coronary heart disease risk factor. The coronary artery calcium score correlates with the annual risk of a non-fatal myocardial infarction or coronary heart disease . Coronary artery score Annual Risk 0-99 0.4% 100-399 1.3% >400 2.4% These three "breakpoints" correspond to lower, intermediate and high risk states for future coronary events. Such information should be used, along with appropriate clinical judgment, to make decisions regarding the intensity of risk factor management strategies to treat blood lipids and to modify other non-lipid coronary risk factors. Reference: [employer] [place] P et al. Circulation. 2007; 115:402-426 MACRO: Incidental Finding: There is a hypodense lesion measuring 10-15 mm within the liver with indeterminate/suspicious imaging features. (-YCF-) Instructions: Further prompt evaluation with outpatient liver MRI is recommended. (Management of Incidental Liver Lesions on CT: A White Paper of the ACR Incidental Findings Committee. J Am Lucie Radiol. 2017;14(11):2729-3586.) LIVER.ACR.IF.4 Signed by: Yannick Hughes 05/17/2023 7:06 AM Dictation workstation: [id number] MMODAL Interpreted By: Yannick Hughes, STUDY: CT CARDIAC SCORING WO IV CONTRAST; 05/15/2023 8:35 am INDICATION: Signs/Symptoms:SCREENING COMPARISON: None. ACCESSION NUMBER(S): [id number] ORDERING CLINICIAN: JOANNE PATINO TECHNIQUE: Using prospective ECG gating, CT [...] the liver has an 11 mm lucency. MMODAL Yannick Hughes MD - 05/17/2023 Interpreted By: Yannick Hughes, STUDY: CT CARDIAC SCORING WO IV CONTRAST; 05/15/2023 8:35 am INDICATION: Signs/Symptoms:SCREENING COMPARISON: None. ACCESSION NUMBER(S): [id number] ORDERING CLINICIAN: JOANNE PATINO TECHNIQUE: Using prospective ECG gating, CT [...] coronary heart disease events. According to the [place] [employer] Clinical Expert Consensus Task Force, such testing provides important prognostic information in patients with more than one coronary heart disease risk factor. The coronary artery calcium score correlates with the annual risk of a non-fatal myocardial infarction or coronary heart disease . Coronary artery score Annual Risk 0-99 0.4% 100-399 1.3% >400 2.4% These three "breakpoints" correspond to lower, intermediate and high risk states for future coronary events. Such information should be used, along with appropriate clinical judgment, to make decisions regarding the intensity of risk factor management strategies to treat blood lipids and to modify other non-lipid coronary risk factors. Reference: [employer] P et al. Circulation. 2007; 115:402-426 MACRO: Incidental Finding: There is a hypodense lesion measuring 10-15 mm within the liver with indeterminate/suspicious imaging features. (-YCF-) Instructions: Further prompt evaluation with outpatient liver MRI is recommended. (Management of Incidental Liver Lesions on CT: A White Paper of the ACR Incidental Findings Committee. J Am Lucie Radiol. 2017;14(11):8389-1637.) LIVER.ACR.IF.4 Signed by: Yannick Hughes 05/17/2023 7:06 AM Dictation workstation: [id number] [facility] Work Phone: CT for calcium scoring WO co ntrast and CTA W contrast IV Heart and coronary arteriesOrdered By: Yannick Hughes on 05-17-2023 [facility] Work Phone: CT CARDIAC SCORING WO IV CON TRASTon 05-15-2023 CT CARDIAC SCORING WO IV CONTRAST Interpreted By: Yannick Hughes, STUDY: CT CARDIAC SCORING WO IV CONTRAST; 05/15/2023 8:35 am INDICATION: Signs/Symptoms:SCREENING COMPARISON: None. ACCESSION NUMBER(S): [id number] ORDERING CLINICIAN: JOANNE PATINO TECHNIQUE: Using prospective ECG gating, CT [...] coronary heart disease events. According to the [place] [employer] Clinical Expert Consensus Task Force, such testing provides important prognostic information in patients with more than one coronary heart disease risk factor. The coronary artery calcium score correlates with the annual risk of a non-fatal myocardial infarction or coronary heart disease . Coronary artery score Annual Risk 0-99 0.4% 100-399 1.3% >400 2.4% These three "breakpoints" correspond to lower, intermediate and high risk states for future coronary events. Such information should be used, along with appropriate clinical judgment, to make decisions regarding the intensity of risk factor management strategies to treat blood lipids and to modify other non-lipid coronary risk factors. Reference: [employer] et al. Circulation. 2007; 115:402-426 MACRO: Incidental Finding: There is a hypodense lesion measuring 10-15 mm within the liver with indeterminate/suspicious imaging features. (-YCF-) Instructions: Further prompt evaluation with outpatient liver MRI is recommended. (Management of Incidental Liver Lesions on CT: A White Paper of the ACR Incidental Findings Committee. J Am Lucie Radiol. 2017;14(11):3119-8009.) LIVER.ACR.IF.4 Signed by: Yannick Hughes 05/17/2023 7:06 AM Dictation workstation: [id number] [facility] CT for calcium scoring WO co ntrast and CTA W contrast IV Heart and coronary arterieson 05-15-2023 Radiology Study observation (narrative) [facility] Work Phone: METABOLIC PANEL, COMPREHENSI VE ([phone])Ordered By: Incident Response Coordinator on 04-27-2023 Albumin [Mass/Vol] 4.0 g/dL Normal 3.9-4.9 [facility]; [facility] Work Phone: Comment on above: PERFORMED BY: [employer] [employer] [place] [id number]; fu 10-9 DB Albumin/Globulin [Mass ratio] 1.6 {ratio} Normal 1.2-2.2 [facility]; [facility] Work Phone: Comment on above: PERFORMED BY: [email or web address] [place] [id number]; fu 10-9 DB ALP [Catalytic activity/Vol] 110 U/L Normal 44-121 [facility]; [facility] Work Phone: Comment on above: PERFORMED BY: [employer] [place] [id number]; fu 10-9 DB ALT [Catalytic activity/Vol] 43 U/L Abnormal 0-32 [facility]; [facility] Work Phone: Comment on above: PERFORMED BY: [employer] [address] [employer] [place] [id number]; fu 10-9 DB AST [Catalytic activity/Vol] 42 U/L Abnormal 0-40 [facility]; [facility] Work Phone: Comment on above: PERFORMED BY: [employer]6[address]Dublin [place] [id number]; fu 10-9 DB Bilirubin [Mass/Vol] 0.4 mg/dL Normal 0.0-1.2 [facility]; [facility] Work Phone: Comment on above: PERFORMED BY: [employer] [employer] [place] [id number]; fu 10-9 DB Calcium [Mass/Vol] 8.9 mg/dL Normal 8.7-10.3 [facility] Internal [facility]; [facility] Work Phone: Comment on above: PERFORMED BY: [employer] [employer] [place] [id number]; fu 10-9 DB Chloride [Moles/Vol] 104 mmol/L Normal 96-106 [facility]; [facility] Work Phone: Comment on above: PERFORMED BY: [employer] [place] [id number]; fu 10-9 DB CO2 [Moles/Vol] 25 mmol/L Normal 20-29 [facility] Internal [facility]; [facility] Work Phone: Comment on above: PERFORMED BY: [employer] [facility] [id number]; fu 10-9 DB Creatinine [Mass/Vol] 1.01 mg/dL Abnormal 0.57-1.00 [facility]; [facility] Work Phone: Comment on above: PERFORMED BY: [employer] [facility] [id number]; fu 10-9 DB GFR/1.73 sq M.predicted among non-blacks MDRD (S/P/Bld) [Vol rate/Area] 63 mL/min/{1.73_m2} Normal [facility]; [facility] Work Phone: Comment on above: PERFORMED BY: [facility] juan Pnijqy55[address] RoadDublin [place] [id number]; fu 10-9 DB Globulin (S) [Mass/Vol] 2.5 g/dL Normal 1.5-4.5 [facility]; [facility] Work Phone: Comment on above: PERFORMED BY: [facility] juan Dixizc7[address] RoadDublin [place] [id number]; fu 10-9 DB Glucose [Mass/Vol] 85 mg/dL Normal 70-99 [facility] Internal [facility]; [facility] Work Phone: Comment on above: PERFORMED BY: [facility] Senior LivingRsfnwy9584 Mat[address] RoadDublin [place] [id number]; fu 10-9 DB Potassium [Moles/Vol] 4.8 mmol/L Normal 3.5-5.2 [facility]; [facility] Work Phone: Comment on above: PERFORMED BY: [employer] Ubxnxf1230 [address] RoadDublin [place] [id number]; fu 10-9 DB Protein [Mass/Vol] 6.5 g/dL Normal 6.0-8.5 [facility]; [facility] Work Phone: Comment on above: PERFORMED BY: [facility] [employer] Cxiaot7[address] RoadDublin [place] [id number]; fu 10-9 DB Sodium [Moles/Vol] 142 mmol/L Normal 134-144 [facility]; [facility] Work Phone: Comment on above: PERFORMED BY: [facility] [employer] Liuskx7[address] RoadDublin [place] [id number]; fu 10-9 DB Urea nitrogen [Mass/Vol] 12 mg/dL Normal 8-27 [facility]; [facility] Work Phone: Comment on above: PERFORMED BY: [facility] [employer] Xvjpzv9[address] RoadDublin [place] [id number]; fu 10-9 DB Urea nitrogen/Creatinine [Mass ratio] 12 mg/mg Normal 12-28 [facility]; [facility] Work Phone: Comment on above: PERFORMED BY: [facility] juan [id number] [facility] [id number]; fu 10-9 DB Absolute lymphocyte countOrd ered By: Dr. Rodgers on 08-17-2022 Lymphocytes Auto (Unsp spec) [#/Vol] 1.39 10*3/uL 0.83-4.51 [facility] Basophil percentageOrdered B y: Dr. Rodgers on 08-17-2022 Basophils/100 WBC (Bld) 0.5 % 0-1 [facility] Chloride [Moles/Vol] 105 mmol/L 98-107 [facility] Eosinophils/100 WBC (Bld) 2.0 % 0-5 [facility] Glucose [Mass/Vol] 82 mg/dL 74-106 [facility] Neutrophils (Bld) [#/Vol] 3.8 10*3/uL 2.0-7.7 [facility] Neutrophils/100 WBC (Bld) 64.6 % 47-70 [facility] Potassium [Moles/Vol] 4.0 mmol/L 3.5-5.1 [facility] Sodium [Moles/Vol] 139 mmol/L 136-145 [facility] WBC (Bld) [#/Vol] 5.9 10*3/uL 4.4-11.0 [facility] Blood erythrocytes count (nu mber/volume)Ordered By: Dr. Rodgers on 08-17-2022 RBC (Bld) [#/Vol] 3.92 10*6/uL 4.2-5.[address] [facility] Blood hemoglobin measurement (mass/volume)Ordered By: Dr. Rodgers on 08-17-2022 Hemoglobin (Bld) [Mass/Vol] 12.6 g/dL 12.0-15.0 [facility] Blood lymphocytes/100 leukoc ytesOrdered By: Dr. Rodgers on 08-17-2022 Lymphocytes/100 WBC (Bld) 23.6 % 19-41 [facility] Blood monocytes/100 leukocyt esOrdered By: Dr. Rodgers on 08-17-2022 Monocytes/100 WBC (Bld) 9.0 % 0-10 [facility] Blood platelet mean volumeOr dered By: Dr. Rodgers on 08-17-2022 Platelet mean volume (Bld) [Entitic vol] 11.4 fL 6.2-12.0 [facility] Determination of erythrocyte mean corpuscular volume (MCV)Ordered By: Dr. Rodgers on 08-17-2022 MCV (RBC) [Entitic vol] 98.5 fL 81-99 [facility] Hematocrit Auto (Bld) [Volum e fraction]Ordered By: Dr. Rodgers on 08-17-2022 Hematocrit (Bld) [Volume fraction] 38.6 % 37-47 [facility] Laboratory - Chemistry and C hemistry - challengeOrdered By: Dr. Rodgers on 08-17-2022 CO2 [Moles/Vol] 27.0 mmol/L 21.0-32.0 [facility] Urea nitrogen/Creatinine [Mass ratio] 21.6 mg/mg 10-20 [facility] - Hematology and Cell countsOrdered By: Dr. Rodgers on 08-17-2022 Erythrocyte distribution width (RBC) [Entitic vol] 42.1 fL 35.1-43.9 [facility] Erythrocyte distribution width (RBC) [Ratio] 11.6 % 11.6-14.6 [facility] Immature granulocytes/100 WBC (Bld) 0.300 % 0.0-0.9 [facility] Comment on above: IG% - Immature Granu locytes (promyelocytes, myelocytes and metamyelocytes) > 1% indicates that a LEFT SHIFT is Present. MCH (RBC) [Entitic mass] 32.1 pg 27.0-32.0 [facility] Nucleated RBC/100 WBC (Bld) [Ratio] 0 % 0-5 [facility] MCHC Auto (RBC) [Mass/Vol]Or dered By: Dr. Rodgers on 08-17-2022 MCHC (RBC) [Mass/Vol] 32.6 g/dL 32-36 [facility] No Panel InformationOrdered By: Dr. Rodgers on 08-17-2022 Estimated GFR (MDRD) Amer 71 mL/min >60 [facility] Comment on above: GFR Calc Estimated GFR (MDRD) Non-Af Amer 58 mL/min >60 [facility] Comment on above: Non- GFR Calc Platelets bldOrdered By: Dr. Rodgers on 08-17-2022 Platelets (Bld) [#/Vol] 211 10*3/uL 150-450 [facility] Serum or plasma calcium salma urement (mass/volume)Ordered By: Dr. Rodgers on 08-17-2022 Calcium [Mass/Vol] 8.6 mg/dL 8.5-10.1 [facility] Serum or plasma creatinine m easurement (mass/volume)Ordered By: Dr. Rodgers on 08-17-2022 Creatinine [Mass/Vol] 1.02 mg/dL 0.55-1.02 [facility] Comment on above: The validity of the calculated GFR & GFRAA in patients over 70 years has not been determined. Clinical correlation is essential. Serum or plasma urea nitroge n measurement (mass/volume)Ordered By: Dr. Rodgers on 08-17-2022 Urea nitrogen [Mass/Vol] 22 mg/dL 7-18 [facility] Thin prep Papanicolaou smear with manual screeningOrdered By: Dr. Rodgers on 08-17-2022 Thin prep Papanicolaou smear with manual screening 7 5-15 [facility] Thin Prep Pap ([id number])Ordered By: Incident Response Coordinator on 07-03-2022 Thin Prep Pap ([id number]) [facility] Normal [facility]; [facility] Work Phone: Comment on above: NEGATIVE FOR INTRAEP ITHELIAL LESION OR MALIGNANCY.CELLULAR CHANGES ASSOCIATED WITH ATROPHY ARE PRESENT.THIS SPECIMEN WAS RESCREENED PART OF OUR [employer]ATER [employer]ED CIRCUIT BOARD PANELS PROGRAM.Satisfactory for evaluation. Endocervical component may not bedistinguished in cases of atrophy.Z12.4Aberta Lazo, Practice Specialist (ASCP)Samantha Fraga, Supervisory Practice Specialist (ASCP) Source.............C ervix;EndocervixNo. of containers..01 ThinPrep VialPATIENT NOT FASTINGPERFORMED BY: [facility] [id number] Information: [id number] Thin Prep Pap ([id number]) . Normal [facility]; [facility] Work Phone: Comment on above: Source.............C ervix;EndocervixNo. of containers..01 ThinPrep VialPATIENT NOT FASTINGPERFORMED BY: [employer] [id number] Information: [id number] Thin Prep Pap ([id number]) [facility] Normal [facility]; [facility] [...] of containers..01 ThinPrep VialPATIENT NOT FASTINGPERFORMED BY: [employer] [id number] Information: [id number] Urinalysis, Office ([id number])Or dered By: Radha Bains on 07-03-2022 Bilirubin [...] VITAMIN B12 AND FOLATES (826 07)Ordered By: Incident Response Coordinator on 06-14-2022 Cobalamin (Vitamin B12) [Mass/Vol] 483 pg/mL Normal 232-1245 [facility]; [facility] Work Phone: Comment on above: PATIENT NOT FASTINGP ERFORMED BY: ISAIAS [employer] [place] [id number] Folate [Mass/Vol] 14.3 ng/mL Normal Compreh ens[facility]; [facility] Work Phone: Comment on above: A serum folate olivia ntration of less than 3.1 ng/mL isconsidered to represent clinical deficiency. PATIENT NOT FASTINGP ERFORMED BY: ISAIAS [facility] [place] [id number] CBC & PLATELETS (AUTO) (8502 7)Ordered By: Incident Response Coordinator on 09-02-2021 Erythrocyte distribution width (RBC) [Ratio] 15.8 % Abnormal 11.7-15.4 [facility]; [facility] Work Phone: Comment on above: 6 weeks; PATIENT NOT FASTINGPERFORMED BY: [employer] [place] [id number] Hematocrit (Bld) [Volume fraction] 36.6 % Normal 34.0-46.6 [facility]; [facility] Work Phone: Comment on above: 6 weeks; PATIENT NOT FASTINGPERFORMED BY: CB [facility] Gobheu3458 [address]Dublin [place] [id number] Hemoglobin (Bld) [Mass/Vol] 11.7 g/dL Normal 11.1-15.9 [facility]; [facility] Work Phone: Comment on above: 6 weeks; PATIENT NOT FASTINGPERFORMED BY: CB [facility] Jeinta5166 [address]Dublin [place] [id number] MCH (RBC) [Entitic mass] 29.4 pg Normal 26.6-33.0 [facility]; [facility] Work Phone: Comment on above: 6 weeks; PATIENT NOT FASTINGPERFORMED BY: CB [facility] Vrmwte6880 [address]Dublin [place] [id number] MCHC (RBC) [Mass/Vol] 32.0 g/dL Normal 31.5-35.7 [facility]; [facility] Work Phone: Comment on above: 6 weeks; PATIENT NOT FASTINGPERFORMED BY: CB [facility] Nspthj6801 [address]Dublin [place] [id number] MCV (RBC) [Entitic vol] 92 fL Normal 79-97 [facility]; [facility] Work Phone: Comment on above: 6 weeks; PATIENT NOT FASTINGPERFORMED BY: CB [facility] [id number] [address] RoadDublin [place] [id number] Platelets (Bld) [#/Vol] 200 10*3/uL Normal 150-450 [facility]; [facility] Work Phone: Comment on above: 6 weeks; PATIENT NOT FASTINGPERFORMED BY: CB [facility] Rnjxzg1565 [address] RoadDublin [place] [id number] RBC (Bld) [#/Vol] 3.98 10*6/uL Normal 3.77-5.28 [facility] Internal [facility]; [facility] Work Phone: Comment on above: 6 weeks; PATIENT NOT FASTINGPERFORMED BY: CB [facility] Glocil75[address]Dublin [place] [id number] WBC (Bld) [#/Vol] 6.3 10*3/uL Normal 3.4-10.8 [facility]pre [facility]; [facility] Work Phone: Comment on above: 6 weeks; PATIENT NOT FASTINGPERFORMED BY: exozetHoboken University Medical CenterCslqtd[address] IPNovant Health [facility] [id number] FERRITIN ([id number])Ordered By: Incident Response Coordinator on 09-02-2021 Ferritin [Mass/Vol] 38 ng/mL Normal 15-150 Compr ehens[facility]; [facility] Work Phone: Comment on above: 6 weeks; PATIENT NOT FASTINGPERFORMED BY: exozetHoboken University Medical CenterNwahgm4085 [facility] [id number] Homocysteine, Plasma (25681) Ordered By: Incident Response Coordinator on 09-02-2021 Homocysteine [Moles/Vol] 16.6 umol/L Normal 0.0-17.2 [facility]; [facility] Work Phone: Comment on above: PATIENT NOT FASTINGP ERFORMED BY: exozetHoboken University Medical CenterAazjzv1923 [facility] [id number] Vitamin B-12 (cyanocobalamin ) (16645)Ordered By: Incident Response Coordinator on 09-02-2021 Cobalamin (Vitamin B12) [Mass/Vol] pg/mL Abnormal 232-1245 [facility]; [facility] Work Phone: Comment on above: PATIENT NOT FASTINGP ERFORMED BY: exozetHoboken University Medical CenterPfjrwj3183 [facility] [id number] Folic Acid Serum (57405)Orde red By: Incident Response Coordinator on 06-13-2021 Folate [Mass/Vol] ng/mL Normal Compre[facility]; [facility] Work Phone: Comment on above: A serum folate olivia ntration of less than 3.1 ng/mL isconsidered to represent clinical deficiency. Test(s) 366491-Enjkp ium, Plasma; 409414-Mhmx, Plasma or Serumwas developed and its performance characteristics determinedby [facility]. It has not been cleared or approved by the Foodand Drug Administration.PATIENT NOT FASTINGPERFORMED BY: [address] [id number] BY: ex[employer]et Jjflta5496 [facility] [id number] MAGNESIUM (13723)Ordered By: Incident Response Coordinator on 06-13-2021 Magnesium [Mass/Vol] 2.2 mg/dL Normal 1.6-2.3 Comp rehensive [facility]; [facility] Work Phone: Comment on above: Test(s) 542656-Gphys ium, Plasma; 594827-Qihx, Plasma or Serumwas developed and its performance characteristics determinedby [employer]. It has not been cleared or approved by the Foodand Drug Administration.PATIENT NOT FASTINGPERFORMED BY: exozet[address] [id number] BY: Donay6370 [facility] [id number] Methymalonic Acid, Serum (83 891)Ordered By: Incident Response Coordinator on 06-13-2021 Methylmalonate [Moles/Vol] 449 nmol/L Abnormal 0-378 [facility]; [facility] Work Phone: Comment on above: Test(s) 314964-Eohme ium, Plasma; 383869-Odet, Plasma or Serumwas developed and its performance characteristics determinedby [employer]. It has not been cleared or approved by the Foodand Drug Administration.PATIENT NOT FASTINGPERFORMED BY: exozet[address] [id number] BY: [employer]et Tnpufm7098 [facility] [id number] Methymalonic Acid, Serum (10377) [facility] Normal [facility]; [facility] Work Phone: Comment on above: This test was develo ped and its performance characteristicsdetermined by [employer]. It has not been cleared or approvedby the Food and Drug Administration. Test(s) 660768-Tvqwe ium, Plasma; 851024-Kosj, Plasma or Serumwas developed and its performance characteristics determinedby [employer]. It has not been cleared or approved by the Foodand Drug Administration.PATIENT NOT FASTINGPERFORMED BY: [facility] [id number] BY: exozetHoboken University Medical CenterYviejd4434 [facility] [id number] VITAMIN A (98997)Ordered By: Incident Response Coordinator on 06-13-2021 Retinol [Mass/Vol] 38.4 ug/dL Normal 22.0-69.5 [facility]; [facility] Work Phone: Comment on above: Reference intervals for vitamin A determined from [employer]. Individuals with vitamin A less than 20 ug/dL are consideredvitamin A deficient and those with serum concentrations less than10 ug/dL are considered severely deficient. .This test was developed and its performance characteristicsdetermined by [employer]. It has not been cleared or approvedby the Food and Drug Administration. all these labs now; Test(s) 103104-Altkkwom, Plasma; 762561-Rsiu, Plasma or Serumwas developed and its performance characteristics determinedby [employer]. It has not been cleared or approved by the Foodand Drug Administration.PATIENT NOT FASTINGPERFORMED BY: [employer] [address] [id number] BY: exozetUNM Children's Psychiatric CenterZbxiqd3120 [facility] [id number] ZINC, BLOOD (10733)Ordered B y: Incident Response Coordinator on 06-13-2021 Zinc [Mass/Vol] 70 ug/dL Normal 44-115 [facility]; [facility] Work Phone: Comment on above: Detection Limit = 5 Test(s) 473548-Guymz ium, Plasma; 678782-Bouu, Plasma or Serumwas developed and its performance characteristics determinedby [employer]. It has not been cleared or approved by the Foodand Drug Administration.PATIENT NOT FASTINGPERFORMED BY: exozet[address] [id number] BY: exozetHoboken University Medical CenterNwcqtf2565 [facility] [id number] Vital Signs Date Time Vital Sign Value Performing Clinician Facility 12-30-2024 15:11-0400 Body height 175.[address] Joanne Patino MD Work Phone: [facility] 12-30-2024 15:11-0400 Body mass index (BMI) [Ratio] 20.9 kg/m2 Dr. Joanne Patino MD Work Phone: [facility] 12-30-2024 15:11-0400 Body weight 64.[address] Joanne Patino MD Work Phone: [facility] 12-30-2024 15:11-0400 Diastolic blood pressure 70 mm[Hg] Dr. Joanne Patino MD Work Phone: [facility] 12-30-2024 15:11-0400 Heart rate 70 /min Dr. Joanne Patino MD Work Phone: [facility] 12-30-2024 15:11-0400 SaO2% (BldA) [Mass fraction] 96 % Dr. Joanne Patino MD Work Phone: [facility] 12-30-2024 15:11-0400 Systolic blood pressure 115 mm[Hg] Dr. Joanne Patino MD Work Phone: [facility] 04-30-2023 08:47-0400 Body height 168.91 cm Joanne Patino MD Work Phone: [facility]; [facility] Work Phone: 04-30-2023 08:47-0400 Body mass index (BMI) [Ratio] 32.75 kg/m2 Joanne Patino MD Work Phone: [facility]; [facility] Work Phone: 04-30-2023 08:47-0400 Body surface area Derived from formula 2.04 m2 Joanne Patino MD Work Phone: [facility]; [facility] Work Phone: 04-30-2023 08:47-0400 Body temperature 98.3 [degF] Joanne Patino MD Work Phone: [facility]; [facility] Work Phone: Comment on above: Method: Oral 04-30-2023 08:47-0400 Body weight 93.44 kg Joanne Patino MD Work Phone: [facility]; [facility] Work Phone: 04-30-2023 08:47-0400 Diastolic blood pressure 60 mm[Hg] Joanne Patino MD Work Phone: [facility]; [facility] Work Phone: Comment on above: Patient Position: Sitting 04-30-2023 08:47-0400 Heart rate 90 /min Joanne Patino MD Work Phone: [facility]; [facility] Work Phone: Comment on above: Pattern: Regular 04-30-2023 08:47-0400 Respiratory rate 18 /min Joanne Patino MD Work Phone: [facility]; [facility] Work Phone: 04-30-2023 08:47-0400 SaO2% (BldA) [Mass fraction] 96 % Joanne Patino MD Work Phone: [facility]; [facility] Work Phone: Comment on above: Room air 04-30-2023 08:47-0400 Systolic blood pressure 110 mm[Hg] Joanne Patino MD Work Phone: [facility]; [facility] Work Phone: Comment on above: Patient Position: Sitting 08-31-2022 07:57-0500 Body height 168.91 cm Christine Moreno LPN [facility]; [facility] Work Phone: 08-31-2022 07:57-0500 Body mass index (BMI) [Ratio] 34.06 kg/m2 Christine Moreno LPN [facility]; [facility] Work Phone: 08-31-2022 07:57-0500 Body surface area Derived from formula 2.07 m2 Christine Moreno LPN [facility]; [facility] Work Phone: 08-31-2022 07:57-0500 Body temperature 97.6 [degF] Christine Moreno LPN [facility]; [facility] Work Phone: 08-31-2022 07:57-0500 Body weight 97.18 kg Christine Moreno LPN [facility]; [facility] [...] 08-31-2022 07:57-0500 Respiratory rate 16 /min Christine Moreno LPN [facility]; [facility] Work Phone: Comment on above: Pattern: Unlabored 08-31-2022 07:57-0500 SaO2% (BldA) [Mass fraction] 97 % Christine Moreno LPN [facility]; [facility] Work Phone: Comment on above: Room air 08-31-2022 07:57-0500 Systolic blood pressure 112 mm[Hg] Christine Moreno ZIPPER REPAIRER [facility]; [facility] Work Phone: Comment on above: Patient Position: Sitting; Cuff Location : Left Arm; Cuff Size: Standard 07-03-2022 07:52-0500 Body height 168.91 cm Joanne Patino MD Work Phone: [facility]; [facility] Work Phone: 07-03-2022 07:52-0500 Body mass index (BMI) [Ratio] 33.23 kg/m2 Joanne Patino MD Work Phone: [facility]; [facility] Work Phone: 07-03-2022 07:52-0500 Body surface area Derived from formula 2.05 m2 Joanne Patino MD Work Phone: [facility]; [facility] Work Phone: 07-03-2022 07:52-0500 Body temperature 96.7 [degF] Joanne Patino MD Work Phone: [facility]; [facility] Work Phone: Comment on above: Method: Oral 07-03-2022 07:52-0500 Body weight 94.8 kg Joanne Patino MD Work Phone: [facility]; [facility] Work Phone: 07-03-2022 07:52-0500 Diastolic blood pressure 80 mm[Hg] Joanne Patino MD Work Phone: [facility]; [facility] Work Phone: Comment on above: Patient Position: Sitting; Cuff Location : Left Arm; Cuff Size: Standard 07-03-2022 07:52-0500 Respiratory rate 17 /min Joanne Patino MD Work Phone: [facility]; [facility] Work Phone: Comment on above: Pattern: Unlabored 07-03-2022 07:52-0500 Systolic blood pressure 118 mm[Hg] Joanne Patino MD Work Phone: [facility]; [facility] Work Phone: Comment on above: Patient Position: Sitting; Cuff Location : Left Arm; Cuff Size: Standard 06-11-2021 09:53-0500 Body temperature 97.7 [degF] Joanne Patino MD Work Phone: [facility]; [facility] Work Phone: Comment on above: Method: Oral 06-11-2021 09:53-0500 Diastolic blood pressure 80 mm[Hg] Joanne Patino MD Work Phone: [facility]; [facility] Work Phone: Comment on above: Patient Position: Sitting 06-11-2021 09:53-0500 Heart rate 84 /min Joanne Patino MD Work Phone: [facility]; [facility] Work Phone: Comment on above: Pattern: Regular 06-11-2021 09:53-0500 Respiratory rate 18 /min Joanne Patino MD Work Phone: [facility]; [facility] Work Phone: 06-11-2021 09:53-0500 SaO2% (BldA) [Mass fraction] 96 % Joanne Patino MD Work Phone: [facility]; [facility] Work Phone: Comment on above: Room air 06-11-2021 09:53-0500 Systolic blood pressure 140 mm[Hg] Joanne Patino MD Work Phone: [facility]; [facility] Work Phone: Comment on above: Patient Position: Sitting 06-11-2021 09:36-0500 Body height 168.91 cm RAFAELA Lopez LPN [facility]; [facility] Work Phone: 06-11-2021 09:36-0500 Body mass index (BMI) [Ratio] 34.34 kg/m2 RAFAELA Lopez LPN [facility]; [facility] Work Phone: 06-11-2021 09:36-0500 Body surface area Derived from formula 2.08 m2 RAFAELA Lopez LPN [facility]; [facility] Work Phone: 06-11-2021 09:36-0500 Body weight 97.98 kg RAFAELA Lopez LPN [facility]; [facility] Work Phone: Encounters Encounter Date Encounter Type Care Provider Facility Start: 05-13-2025 ambulatory Joanne Patino Facility:[facility] Start: 01-08-2025 End: 01-08-[address] Joanne Patino MD Work Phone: [facility] Work Phone: Start: 01-08-2025 End: 01-08-[address] Joanne Patino MD -Outpatient Breast [facility] Work Phone: Start: 01-08-2025 End: 01-08-2025 ambulatory Joanne Patino Facility:[facility] Start: 12-30-2024 End: 12-30-[address] Merlin Palacio MD -[facility] Work Phone: Start: 12-30-2024 End: 12-30-[address] Joanne Patino MD Work Phone: [facility] Work Phone: Start: 12-10-2024 ambulatory Joanne Patino Facility:[facility] Start: 06-12-2023 End: 06-12-2023 ambulatory [facility] Work Phone: Start: 06-12-2023 End: 06-12-[address] [facility] - [facility] Work Phone: Start: 05-22-2023 Review Joanne Lopez Work Phone: [facility] Start: 05-22-2023 Registered Referred [facility] Work Phone: Start: 05-18-2023 End: 05-18-2023 Phone Encounter Joanne Patino MD Work Phone: [facility] Start: 05-15-2023 End: 05-15-2023 Subsequent hospital visit by physician [address] Comment on above: Family history of is chemic heart disease and other diseases of the circulatory system Start: 05-15-2023 End: 05-15-2023 ambulatory [facility] Start: 04-30-2023 End: 04-30-2023 Annotation/Addendum Joanne Patino MD Work Phone: [facility] Start: 04-30-2023 End: 04-30-2023 Office outpatient visit 25 minutes Joanne Patino MD Work Phone: [facility] Start: 04-30-2023 End: 04-30-2023 Patient encounter procedure Joanne Patino MD Work Phone: [facility]; [facility] Work Phone: Comment on above: 07-13 [facility] negative pap 2018, mammo, BD, colonscopy 2014 had cologuard 2021 neg saw derm 2021 Start: 09-09-2022 End: 09-09-[address] Joanne Patino Work Phone: [facility] Work Phone: Start: 09-09-2022 End: 09-09-[address] Joanne Patino Work Phone: [facility] Start: 09-05-2022 End: 09-05-[address] Joanne Patino Work Phone: [facility] Work Phone: Start: 09-05-2022 End: 09-05-[address] Joanne Patino Work Phone: [facility] Start: 08-31-2022 ambulatory Joanne Patino MD [facility] Start: 08-31-2022 End: 08-31-2022 Office outpatient visit 25 minutes Joanne Patino MD Work Phone: [facility] Start: 08-31-2022 End: 08-31-2022 Patient encounter procedure Joanne Patino MD Work Phone: [facility]; [facility] Work Phone: Comment on above: 06-11-21 [facility] ess negative pap 2018, mammo, BD, colonscopy 2014 had cologuard 2021 neg saw derm 2021 Start: 08-17-2022 End: 08-17-2022 Non-patient / Non-visit Dr. Joanne Patino Work Phone: [facility] Start: 08-17-2022 End: 08-17-[address] Joanne Patino Work Phone: [facility] Work Phone: Start: 08-17-2022 End: 08-17-[address] Joanne Patino Work Phone: [facility]-P[facility] Services/Neurology Start: 07-03-2022 Review Joanne Lopez Work Phone: [facility] Start: 07-03-2022 End: 07-03-2022 Patient encounter procedure Joanne Patino MD Work Phone: [facility] Comment on above: 06-11-21 [facility] jaffe ess negative pap 2019, mammo, BD, colonscopy 2014 Start: 06-14-2022 End: 06-14-2022 Lab Order Joanne Patino MD Work Phone: [facility] Start: 09-19-2021 End: 09-19-2021 Office outpatient visit 25 minutes Joanne Patino MD Work Phone: [facility] Start: 09-19-2021 End: 09-19-2021 Patient encounter procedure Jonane Patino MD Work Phone: [facility]; [facility] Work Phone: Comment on above: 06-11-21 [facility] jaffe ess negative pap 2019, mammo, BD, colonscopy 2014 Start: 09-02-2021 Review Joanne Lopez Work Phone: [facility] Start: 06-23-2021 End: 06-23-2021 Office outpatient visit 25 minutes Joanne Patino MD Work Phone: [facility] Start: 06-11-2021 End: 06-12-2021 Office outpatient visit 10 minutes Joanne Patino MD Work Phone: [facility] Start: 06-11-2021 End: 06-12-2021 Patient encounter procedure Joanne Patino MD Work Phone: [facility] Start: 04-14-2021 End: 04-17-2021 Phone Encounter Joanne Patino MD Work Phone: [facility] Patient encounter procedure Joanne Patino MD Work Phone: [facility]; [facility] Work Phone: Comment on above: 06-11-21 [facility] jaffe ess negative pap 2019, mammo, BD, colonscopy 2014 Procedures Date Procedure Procedure Detail Performing Clinician Start: 01-08-[address] Joanne Lopez Work Phone: Start: 06-12-2023 MRI of abdomen with contrast Start: 05-15-2023 CT CARDIAC SCORING WO IV CONTRAST JOANNE PATINO Start: 05-15-2023 Ct heart no contrast quant eval coronry calcium Joanne Patino MD Start: 09-09-2022 End: 09-09-2022 Kidney and Bladder Procedure Note: See Note; NOTES: [facility] Imaging Services [address] [place] [address] Kidney and Bladder MR#: [id number] Acct: [id number] Name: BENNY BRADLEY Rep #: [id number] : 1960 F 62 From: Nick Lopez PCP: Dr. Joanne Patino MD Status: [facility] CLI Study: Kidney and Bladder Date of Exam: 09/09/22 Exam# [id number] Ordering Dr: Joanne Patino MD INDICATION: MICROSCOPIC HEMATURIA EXAMINATION: Ultrasound [...] MD at 12:13 EST , CC: Dr. Joanne Patino MD Product Development Specialist: Signed Joanne Patino MD Work Phone: Start: 09-09-[address] Joanne Patino Work Phone: Start: 09-05-2022 End: 09-05-2022 Abdomen Limited Procedure Note: See Note; NOTES: [facility] Imaging Services [address] [place] [address] Abdomen Limited MR#: [id number] Acct: [id number] Name: BENNY BRADLEY Rep #: [id number] : 1960 F 62 From: Kit bloom MD PCP: Dr. Joanne Patino MD Status: REG CLI Study: Abdomen Limited Date of Exam: 09/05/22 Exam# [id number] Ordering Dr: Joanne Patino MD STUDY: ABDOMINAL ULTRASOUND - RIGHT [...] MD at 11:06 EST , CC: Dr. Joanne Patino MD Product Development Specialist: Signed Joanne Patino MD Work Phone: Start: 09-05-[address] Joanne Patino Work Phone: Start: 08-17-2022 End: 08-18-2022 12 Lead EKG Procedure Note: See Note; NOTES: [facility] Cardiovascular Services [address] [place] [address] 12 Lead EKG 08/17/22 0824 MR#: [id number] Acct: [id number] Name: BENNY BRADLEY Rep #: [id number] : 1960 62 From: Yovanny Paez MD Attending Dr: Dr. Alejandro Rodgers, DO Status: REG CLI Ordering Dr: Alejandro Rodgers DO Date: 08/17/22 Location: [facility] Sex: F C Admitted: Test Reason : PRE OP Blood Pressure : / mmHG Vent. Rate : 075 BPM Atrial Rate : 075 BPM P-R Int : 164 ms QRS Dur : 084 ms QT Int : 390 ms P-R-T Axes : 051 002 045 degrees QTc Int : 435 ms Normal sinus rhythm Normal ECG Confirmed by ESTELA ROOT, YOVANNY ([id number]), correspondence renew clerk CHEL WALLER ([id number]) on 08/18/2022 12:55:48 PM Referred By: BRAYDEN Confirmed By:YOVANNY PAEZ MD 08/18/22 1255 Date Yovanny Paez MD CC: Dr. Joanne Patino MD; Dr. Alejandro Rodgers DO Signed Joanne Patino MD Work Phone: Start: 09-15-2021 End: 09-16-2021 Dexa Bone Density Study Comments: See Note; NOTES: [facility] Imaging Services [address] [place] [address] Dexa Bone Density Study MR#: [id number] Acct: [id number] Name: BENNY BRADLEY Rep #: [id number] : 1960 F 61 From: Kit bloom MD PCP: Dr. Joanne Patino MD Status: REG CLI Study: Dexa Bone Density Study Date of Exam: 09/15/21 Exam# [id number] Ordering Dr: Joanne Patino MD STUDY: DUAL ENERGY X-RAY ABSORPTIOMETRY [...] MD at 8:23 EST , CC: Dr. Joanne Patino MD Product Development Specialist: Signed Joanne Patino MD Work Phone: Start: 09-15-2021 End: 09-15-2021 SCRN MAMM (CAD)W/REGGIE BILAT Comments: See Note; NOTES: [facility] Imaging Services [address] [place] [address] SCRN MAMM (CAD)W/REGGIE BILAT MR#: [id number] Acct: [id number] Name: BENNY BRADLEY Rep #: [id number] : 1960 F 61 From: Kit bloom MD PCP: Dr. Joanne Patino MD Status: REG CLI Study: SCRN MAMM (CAD)W/REGGIE BILAT Date of Exam: 08/24 11/11 Exam# [id number] Ordering Dr: Joanne Patino MD MAMMOGRAPHY - BILATERAL SCREENING REASON [...] delay biopsy of a clinically suspicious abnormality. [id number] Electronically Signed: Kit Cortés MD at 14:33 EST , CC: Dr. Joanne Patino MD Product Development Specialist: Signed Joanne Patino MD Work Phone: Start: 01-08-2019 End: 01-08-2019 Screening mammography RAFAELA Lopez PHYLLIS Comment on above: [facility] Start: 12-21-2018 End: 12-21-2018 Hep C screen high risk/other RAFAELA Lopez PHYLLIS Comment on above: Within Normal Limits. Negative [facility] Start: 12-21-2018 End: 12-21-2018 Microscopic examination of cervical Papanicolaou smear RAFAELA John FERGUSON Comment on above: 01-15-2019 negative Radha Alexandre [facility] Start: 12-21-2012 End: 12-21-2012 Screening colonoscopy RAFAELA Lopez PHYLLIS Comment on above: Cebul [facility] repeat 10 years Start: 05-23-2008 End: 05-23-2008 Cysto/uretero w/lithotripsy &indwell stent insrt RAFAELA John FERGUSON Start: 07-23-2000 End: 07-23-2000 Biopsy of breast RAFAELA John FERGUSON Comment on above: 2000 benign Start: 07-23-2000 End: 07-23-2000 Craniec craniosynostosis front/pariet bone flap Joanne Patino MD Work Phone: Comment on above: Left. frontoparietal region last ct head 09-05-2013 -impression post surgical defect left frontoparietal region, frontal bone benign lesion Start: 07-23-1999 End: 07-23-1999 Laps gstr rstcv px w/byp renato-en-y limb <150 cm Joanne Patino MD Work Phone: Comment on above: [...] DTaP/Tdap/Td Vaccines (6 - Td or Tdap) [facility] Start: 04-30-2023 Antinuclear antibodies alec ALEC (ANTINUCLEAR ANTIBODY) (96143) [facility] Work Phone: Comment on above: to be done with the executive CHL radha crowder Start: 04-30-2023 Procedure Education Eprescribed prescriptions (G8553) [facility] Work Phone: Start: 04-30-2023 Assay of homocysteine Homocysteine, Plasma (64182) [facility] Work Phone: Start: 04-30-2023 Organic acid 1 quantitative Methymalonic Acid, Serum (07050) [facility] Work Phone: Start: 10-09-2023 Cyanocobalamin vitamin b-12 Vitamin B-12 (cyanocobalamin) (87875) [facility]; [facility] Work Phone: Start: 04-30-2023 Urnls dip stick/tablet rgnt non-auto w/o micrscp Urinalysis, Office (98880) [facility]; [facility] Work Phone: Start: 04-30-2023 Assay of ferritin FERRITIN (77310) [facility]; [facility] Work Phone: Start: 04-30-2023 Immunoassay analyte qual/semiqual multiple step ANTIMITOCHONDRIAL ANTIBODY (52385) [facility]; [facility] Work Phone: Start: 04-30-2023 Antibody cytomegalovirus cmv igm CMV IGM ANTBDY (71168) [facility]; [facility] Work Phone: Start: 04-30-2023 Ceruloplasmin CERULOPLASMIN (16920) [facility]; [facility] Work Phone: Start: 04-30-2023 Fluorescent nonnfct agt antb screen ea antibody ASM (ANTI SMOOTH MUSCLE ANTIBODY) (92667) [facility]; [facility] Work Phone: Start: 04-30-2023 Microsomal antibodies each ANTI-LIVER/KIDNEY MICROSOMAL ANTIBODY (16033) [facility]; [facility] Work Phone: Start: 03-23-2023 Influenza vaccination Influenza Vaccine (#1) [facility] Start: 08-31-2022 Procedure Education Eprescribed prescriptions (G8553) [facility]; [facility] Work Phone: Start: 08-31-2022 Comprehensive metabolic panel METABOLIC PANEL, COMPREHENSIVE (64845) [facility]; [facility] Work Phone: Start: 07-03-2022 Acute hepatitis panel HEPATITIS PANEL (01688) [facility]; [facility] Work Phone: Comment on above: in 6 weeks Start: 07-03-2022 Hepatic function panel HEPATIC FUNCTION PANEL (46609) [facility]; [facility] Work Phone: Comment on above: in 6 weeks Start: 07-03-2022 Procedure Education Eprescribed prescriptions (G8553) [facility]; [facility] Work Phone: Start: 07-03-2022 Urnls dip stick/tablet reagent auto microscopy URINALYSIS, W/ MICRO (22267) [facility]; [facility] Work Phone: Comment on above: in 6 weeks Start: 07-03-2022 Cytp c/v auto thin lyr prepj scr mnl rescr phys Thin Prep Pap (27638) [facility]; [facility] Work Phone: Start: 06-14-2022 Cyanocobalamin vitamin b-12 VITAMIN B12 AND FOLATES (70431) [facility]; [facility] Work Phone: Start: 06-01-2022 COVID-19 Vaccine (3 - Pfizer series) COVID-19 Vaccine (3 - Pfizer series) [facility] Start: 09-19-2021 Blood count complete automated CBC & PLATELETS (AUTO) (09366) [facility]; [facility] Work Phone: Start: 09-19-2021 Cyanocobalamin vitamin b-12 VITAMIN B-12 (CYANOCOBALAMIN) (93490) [facility]; [facility] Work Phone: Start: 09-19-2021 Assay of ferritin FERRITIN (35619) [facility]; [facility] Work Phone: Start: 09-19-2021 Assay of homocysteine Homocysteine, Plasma (67939) [facility]; [facility] Work Phone: Start: 06-11-2021 Patient Education Tinnitus: angela [facility] Work Phone: Start: 06-11-2021 Assay of homocysteine Homocysteine, Plasma (70171) [facility]; [facility] Work Phone: Start: 06-11-2021 Assay of ferritin FERRITIN (91954) [facility]; [facility] Work Phone: Comment on above: 6 weeks Start: 06-11-2021 Blood count complete automated CBC & PLATELETS (AUTO) (87966) [facility]; [facility] Work Phone: Comment on above: 6 weeks Start: 06-11-2021 Assay of chromium CHROMIUM (03352) [facility]; [facility] Work Phone: Start: 06-11-2021 Cyanocobalamin vitamin b-12 Vitamin B-12 (cyanocobalamin) (06444) [facility]; [facility] Work Phone: Start: 2010 Zoster Vaccines (1 of 2) Zoster Vaccines (1 of 2) [facility] Start: 2000 Screening for malignant neoplasm of breast Mammogram [facility] Start: 1981 Screening for malignant neoplasm of cervix [facility] Start: 1978 Hepatitis C screening Hepatitis C Screening [facility] Start: 1961 MMR Vaccines (1 of 1 - Standard series) MMR Vaccines (1 of 1 - Standard series) [facility] Start: 1960 HIV screening HIV Screening [facility] Start: 1960 Lipid panel Lipid Panel [facility] Start: 1960 Screening for malignant neoplasm of colon [facility] Start: 1960 Yearly Adult Physical Yearly Adult Physical [facility] Acute hepatitis 1999 panel - Serum [facility] Bdbqy-0-bepswygtgyy. anna marie or marker [Units/volume] in Serum or Plasma [facility] Bilirubin.direct [Mass/volume] in Serum or Plasma [facility] C reactive protein [Mass/volume] in Serum or Plasma [facility] CBC W Auto Different ial panel - Blood [facility] Comprehensive metabo lic 1999 panel - Serum or Plasma [facility] End: 05-15-2023 CT for calcium scoring WO contrast and CTA W contrast IV Heart and coronary arteries [facility] Service [facility] Work Phone: Comment on above: Once for 1 Occurrences starting 05/15/20 23 until 05/15/2023 Cytoplasmic ANCA Screen [facility] Ferritin [Mass/volum e] in Serum or Plasma [facility] Hemoglobin A1c/Hemoglobin.total in Blood [facility] Hepatitis B virus surface Ab [Presence] in Serum [facility] Lipid 1996 panel - Serum or Plasma [facility] Liver stiffness by US.transient elastography [facility] Mitochondria Ab [Presence] in Serum [facility] Prothrombin time [facility] Smooth muscle Ab [Presence] in Serum [facility] Work [...] Immunizations Immunization Date Immunization Notes Care Provider [facility] 08-12-2020 COVID-Pfizer (30 MCG/0.3 ML) Joanne Patino MD Work Phone: [facility] Work Phone: 07-11-2020 COVID-Pfizer (30 MCG/0.3 ML) Joanne Patino MD Work Phone: [facility] Work Phone: 12-14-2018 tetanus and diphther ia toxoids, adsorbed, preservative free, for adult use (2 Lf of tetanus toxoid and 2 Lf of diphtheria toxoid) Joanne Patino MD Work Phone: [facility] Work Phone: 08-23-2008 tetanus toxoid, reduced diphtheria toxoid, and acellular pertussis vaccine, adsorbed Joanne Patino MD Work Phone: [facility] Work Phone: Payers Date Payer Category Payer Self-pay [id number] 2022 Unknown 2022 Unknown [id number] 2007 Unknown [id number] 1960 Unknown [id number] [id number] [id number] 1960 Unknown [id number] 2.16.8 [id number] Unknown [id number] 2.16.8 [id number] Unknown [id number] 2.16.8 [id number] Unknown [id number] 2.16.8 [id number] Unknown [id number] 2.16.8 [id number] Social History Date Type Detail Facility Alcohol Use: Alcohol Use: [facility] Work Phone: Comment on above: 2 per month Current Work/Study Status: Current Work/Study Status: [facility] Work Phone: 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 [facility] 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 Start: 1960 Sex Assigned At Female [facility] Start: 1960 Sex Assigned At Not on file [facility] Work Phone: Gender identity Not on file [facility] Work Phone: Start: 05-05-2023 End: 05-15-2023 Exposure to SARS-CoV-2 (event) Not sure [facility] Start: 04-05-2019 Tobacco smoking status NHIS Never smoked tobacco (finding) [facility] Clinical Notes 10-18-2020 to 12-30-2024 Note Date & Type Note Facility 12-30-2024 Progress note Note Date/Time December 30, 2024 4:06pm [facility] [address] [place] [address] OFFICE VISIT Date of Service: 12/30/24 MR#: [id number] Acct: [id number] Name: BENNY BRADLEY Rep #: [id number] : 1960 Provider: Dr. Oliver Palacio MD Age/Sex: 64/F Location: [facility] Status: Signed Intake Vital Signs 06/17/21 16:25 [...] 12/30/24 History mg/3 mL) subcutaneous pen injector REPLACED BY [facility] Medical History (Updated 12/30/24 @ 16:02 by [...] alcohol intake: never HPI HPI Details: BENNY BRALDEY, is a 64 F who presents to [...] Palacio MD> Date _ Merlin Palacio MD Cosigner Signature: Date (if applicable) CC: Dr. Joanne Patino MD ~ [employer] Work Phone: 1(238) 595-458306-10-2025 Evaluation note* Diagnosis Onset Date Resolution Status Admit Date Abnormal LFTs (liver functio n tests) chronic December 30, 2024 2:48pm Liver hemangioma chronic December 2:48pm Metabolic dysfunction-associ ated steatotic liver disease (MASLD) chronic December 30, 2024 2:48pm [facility] Work Phone: 1(338) 306-880306-10-2025 [facility] [address] [place] [address] OFFICE VISIT Date of Service: 12/30/24 MR#: [id number] Acct: [id number] Name: BENNY BRADLEY Rep #: [id number] : 1960 Provider: Dr. Oliver Palacio MD Age/Sex: 64/F Location: [facility] Status: Signed Intake Vital Signs 06/17/21 16:25 [...] 12/30/24 History mg/3 mL) subcutaneous pen injector REPLACED BY [facility] Medical History (Updated 12/30/24 @ 16:02 by [...] 1606 > Date _ Merlin Palacio MD Cosignlucrecia Signature: Date (if applicable) CC: Dr. Joanne Patino MD ~ [facility]07-23-2021 NotePatient Outreach (INTMMN) BENNY BRADLEY ([id number]) 1960 F Date Time Provider Department 02/11/21 ANTOLIN POWELL During your visit today, we recorded the following information about you: Allergies As of Date: 02/11/2021 Noted Allergy Reaction CODEINE 08/28/2008 4 - Hives MORPHINE 08/28/2008 4 - Hives VENOFER (IRON SUCROSE) 08/28/2008 Comments: sob, cardiac sx Date Reviewed: 01/08/2019 Reviewed by: Radha Alexandre - Fully Assessed Visit Diagnosis:Encounter for screening mammogram for breast cancer [Z12.31] Order(s):[facility] SCREENING [9404745] Order #: [id number] FUTURE Prescriptions as of 02/14/2021 - folic [...] 09/08/2011 01/08/2019 Dysmenorrhea [N94.6] 09/08/2011 01/08/2019 Dyspareunia [UJU9241] 09/08/2011 Symptomatic menopausal or female climacteric st*09/08/2011 H/O gastric bypass [Z98.84] 10/05/2011 Cervicalgia [M54.2] 08/22/2013 Backache, unspecified [M54.9] 08/22/2013 B12 deficiency [E53.8] 11/19/2014 Encounter Status:Closed by ISABEL TREVIZO on 02/14/21[facility] 11-16-2020 NoteHNO ID: [id number] Author: Consuelo Oswald Service: ? Author Type: ? Type: Progress Notes Filed: 11/16/2020 2:57 PM Note Text: POPULATION HEALTH NAVIGATION OUTREACH Action/FYI Left message for patient to contact at [phone] to schedule Mammogram screening. Also sent [employer] message. Please assist patient with scheduling a [...] Signature: Consuelo Oswald November 16, 2020 2:55 [facility]04-27-2021 NotePatient Outreach (FAMPTW) BENNY BRADLEY ([id number]) 1960 F Date Time Provider Department 11/16/20 [facility] FAMPTW During your visit today, we recorded the following information about you: Consuelo Oswald 11/16/2020 2:57 PM Signed POPULATION HEALTH NAVIGATION OUTREACH Action/FYI Left message for patient to contact at [phone] to schedule Mammogram screening. Also sent [employer] message. Please assist patient with scheduling a [...] sx Date Reviewed: 01/08/2019 Reviewed by: Radha ([facility]) Bettie - Fully Assessed Reason for Visit: Population [...] 09/08/2011 01/08/2019 Dysmenorrhea [N94.6] 09/08/2011 01/08/2019 Dyspareunia [UAH5966] 09/08/2011 Symptomatic menopausal or female climacteric st*09/08/2011 H/O gastric bypass [Z98.84] 10/05/2011 Cervicalgia [M54.2] 08/22/2013 Backache, unspecified [M54.9] 08/22/2013 B12 deficiency [E53.8] 11/19/2014 Encounter Status:Closed by CONSUELO OSWALD on 11/16/20[facility] 10-18-2020 NotePatient Outreach (FAMPTW) BENNY BRADLEY ([id number]) 1960 F Date Time Provider Department 10/18/20 CONSUELO OSWALD ([facility]) FAMPTW During your visit today, we recorded the following information about you: Consuelo Oswald 11/03/2020 5:54 PM Signed POPULATION HEALTH NAVIGATION OUTREACH Action/FY Left message for patient to contact at [phone] to schedule Mammogram screening. Also sent [employer] message. Please assist patient with scheduling a [...] 09/08/2011 01/08/2019 Dysmenorrhea [N94.6] 09/08/2011 01/08/2019 Dyspareunia [WPZ7974] 09/08/2011 Symptomatic menopausal or female climacteric st*09/08/2011 H/O gastric bypass [Z98.84] 10/05/2011 Cervicalgia [M54.2] 08/22/2013 Backache, unspecified [M54.9] 08/22/2013 B12 deficiency [E53.8] 11/19/2014 Encounter Status:Closed by CONSUELO OSWALD on 11/03/20[facility] 10-18-2020 NoteHNO ID: [id number] Author: Consuelo Oswald Service: ? Author Type: ? Type: Progress Notes Filed: 11/03/2020 5:54 PM Note Text: POPULATION HEALTH NAVIGATION OUTREACH Action/FYI Left message for patient to contact at [phone] to schedule Mammogram screening. Also sent [employer] message. Please assist patient with scheduling a Mammogram screening when she returns the call. Contact made with patient or family member? NO Pt identified by name and : NO Outreach Outcome/Action Unable to reach patient: Left message Reason for Outreach Care Gap or Scheduling/Wellness visits Payer: Payor: [employer] / Plan: BLUE CARD PPO / Product Type: PPO / Care Gap Reviewed:: Breast Cancer screening Reminder: Reminder note to check Health Maintenance for items below Health Maintenance items due: HIV SCREENING Completed SHINGRIX VACCINE(1 of 2) Completed DEPRESSION SCREENING due on 12/15/2019 MAMMOGRAM due on 01/09/2020 INFLUENZA(1) Completed Navigation Signature: Consuelo Oswald October 18, 2020 10:11 [facility] Work Phone: Evaluation note* Diagnosis Family history of ischemic heart disease and other diseases of the circulatory system documented in this encounter [facility] Work Phone: Evaluation note* Diagnosis Family history of ischemic heart disease and other diseases of the circulatory system documented in this encounter [facility] Work Phone: Instructions* Name Dates Details Patient Instructions Indication:Well woman exam (Renamed from Encounter for well woman exam) Start:11-Jun-2021 Instruction Type:Provider Instructions for Treatment How to Access Health Informa tion Online using Patient Portal and [employer] Apps Indication:Well woman exam (Renamed from Encounter for well woman exam) Start:11-Jun-2021 Instruction Type:Patient Education [facility] Work Phone: Instructions* Name Dates Details Patient Instructions Indication:Well woman exam (Renamed from Encounter for well woman exam) Start:11-Jun-2021 Instruction Type:Provider Instructions for Treatment How to Access Health Informa tion Online using Patient Portal and [employer] Apps Indication:Well woman exam (Renamed from Encounter for well woman exam) Start:11-Jun-2021 Instruction Type:Patient Education [facility]; [facility] Work Phone: Instructions* Name Dates Details Patient Instructions Indication:Well woman exam (Renamed from Encounter for well woman exam) Start:11-Jun-2021 Instruction Type:Provider Instructions for Treatment How to Access Health Informa tion Online using Patient Portal and [employer] Apps Indication:Well woman exam (Renamed from Encounter for well woman exam) Start:11-Jun-2021 Instruction Type:Patient Education [facility]; [facility] Work Phone: instructions* Name Dates Details Patient Instructions Indication:Well woman exam (Renamed from Encounter for well woman exam) Start:11-Jun-2021 Instruction Type:Provider Instructions for Treatment How to Access Health Informa tion Online using Patient Portal and [employer] Apps Indication:Well woman exam (Renamed from Encounter for well woman exam) Start:11-Jun-2021 Instruction Type:Patient Education [facility]; [facility] Work Phone: instructions* Name Dates Details Patient Instructions Indication:Well woman exam (Renamed from Encounter for well woman exam) Start:11-Jun-2021 Instruction Type:Provider Instructions for Treatment How to Access Health Informa tion Online using Patient Portal and [employer] Apps Indication:Well woman exam (Renamed from Encounter for well woman exam) Start:11-Jun-2021 Instruction Type:Patient Education [facility] Work Phone: instructions* Name Dates Details Patient Instructions Indication:BMI 34.0-34.9,adult Start:03-Jul-2022 Instruction Type:Provider Instructions for Treatment How to Access Health Informa tion Online using Patient Portal and [employer] Apps Indication:BMI 34.0-34.9,adult Start:03-Jul-2022 Instruction Type:Patient Education Patient Instructions Indication:Well woman exam (Renamed from Encounter for well woman exam) Start:11-Jun-2021 Instruction Type:Provider Instructions for Treatment How to Access Health Informa tion Online using Patient Portal and [employer] Apps Indication:Well woman exam (Renamed from Encounter for well woman exam) Start:11-Jun-2021 Instruction Type:Patient Education [facility]; [facility] Work Phone: instructions* Name Dates Details Patient Instructions Indication:BMI 34.0-34.9,adult Start:03-Jul-2022 Instruction Type:Provider Instructions for Treatment How to Access Health Informa tion Online using Patient Portal and [employer] Apps Indication:BMI 34.0-34.9,adult Start:03-Jul-2022 Instruction Type:Patient Education Patient Instructions Indication:Well woman exam (Renamed from Encounter for well woman exam) Start:11-Jun-2021 Instruction Type:Provider Instructions for Treatment How to Access Health Informa tion Online using Patient Portal and [employer] Apps Indication:Well woman exam (Renamed from Encounter for well woman exam) Start:11-Jun-2021 Instruction Type:Patient Education [facility]; [facility] Work Phone: [employer]* Name Dates Details Patient Instructions Indication:BMI 34.0-34.9,adult Start:03-Jul-2022 Instruction Type:Provider Instructions for Treatment How to Access Health Informa tion Online using Patient Portal and [employer] Apps Indication:BMI 34.0-34.9,adult Start:03-Jul-2022 Instruction Type:Patient Education Patient Instructions Indication:Well woman exam (Renamed from Encounter for well woman exam) Start:11-Jun-2021 Instruction Type:Provider Instructions for Treatment How to Access Health Informa tion Online using Patient Portal and [employer] Apps Indication:Well woman exam (Renamed from Encounter for well woman exam) Start:11-Jun-2021 Instruction Type:Patient Education [facility]; [facility] Work Phone: instructions* Name Dates Details Patient Instructions Indication:BMI 34.0-34.9,adult Start:31-Aug-2022 Instruction Type:Provider Instructions for Treatment How to Access Health Informa tion Online using Patient Portal and [employer] Apps Indication:BMI 34.0-34.9,adult Start:31-Aug-2022 Instruction Type:Patient Education Patient Instructions Indication:BMI 34.0-34.9,adult Start:03-Jul-2022 Instruction Type:Provider Instructions for Treatment How to Access Health Informa tion Online using Patient Portal and [employer] Apps Indication:BMI 34.0-34.9,adult Start:03-Jul-2022 Instruction Type:Patient Education Patient Instructions Indication:Well woman exam (Renamed from Encounter for well woman exam) Start:11-Jun-2021 Instruction Type:Provider Instructions for Treatment How to Access Health Informa tion Online using Patient Portal and [employer] Apps Indication:Well woman exam (Renamed from Encounter for well woman exam) Start:11-Jun-2021 Instruction Type:Patient Education [facility]; [facility] Work Phone: Instructions* Name Dates Details Patient Instructions Indication:BMI 34.0-34.9,adult Start:31-Aug-2022 Instruction Type:Provider Instructions for Treatment How to Access Health Informa tion Online using Patient Portal and [employer] Indication:BMI 34.0-34.9,adult Start:31-Aug-2022 Instruction Type:Patient Education Patient Instructions Indication:BMI 34.0-34.9,adult Start:03-Jul-2022 Instruction Type:Provider Instructions for Treatment How to Access Health Informa tion Online using Patient Portal and [employer] Indication:BMI 34.0-34.9,adult Start:03-Jul-2022 Instruction Type:Patient Education Patient Instructions Indication:Well woman exam (Renamed from Encounter for well woman exam) Start:11-Jun-2021 Instruction Type:Provider Instructions for Treatment How to Access Health Informa tion Online using Patient Portal and [employer] Indication:Well woman exam (Renamed from Encounter for well woman exam) Start:11-Jun-2021 Instruction Type:Patient Education [facility]; [facility] Work Phone: Instructions* Name Dates Details Patient Instructions Indication:BMI 34.0-34.9,adult Start:31-Aug-2022 Instruction Type:Provider Instructions for Treatment How to Access Health Informa tion Online using Patient Portal and [employer] Indication:BMI 34.0-34.9,adult Start:31-Aug-2022 Instruction Type:Patient Education Patient Instructions Indication:BMI 34.0-34.9,adult Start:03-Jul-2022 Instruction Type:Provider Instructions for Treatment How to Access Health Informa tion Online using Patient Portal and [employer] Indication:BMI 34.0-34.9,adult Start:03-Jul-2022 Instruction Type:Patient Education Patient Instructions Indication:Well woman exam (Renamed from Encounter for well woman exam) Start:11-Jun-2021 Instruction Type:Provider Instructions for Treatment How to Access Health Informa tion Online using Patient Portal and [employer] Indication:Well woman exam (Renamed from Encounter for well woman exam) Start:11-Jun-2021 Instruction Type:Patient Education [facility]; [facility] Work Phone: Instructions* Name Dates Details How to Access Health Informa tion Online using Patient Portal and [employer] Indication:Non-smoker Start:30-Apr-2023 Instruction Type:Patient Education Patient Instructions Indication:Non-smoker Start:30-Apr-2023 Instruction Type:Provider Instructions for Treatment Patient Instructions Indication:BMI 34.0-34.9,adult Start:31-Aug-2022 Instruction Type:Provider Instructions for Treatment How to Access Health Informa tion Online using Patient Portal and [employer] Indication:BMI 34.0-34.9,adult Start:31-Aug-2022 Instruction Type:Patient Education Patient Instructions Indication:BMI 34.0-34.9,adult Start:03-Jul-2022 Instruction Type:Provider Instructions for Treatment How to Access Health Informa tion Online using Patient Portal and [employer] Indication:BMI 34.0-34.9,adult Start:03-Jul-2022 Instruction Type:Patient Education Patient Instructions Indication:Well woman exam (Renamed from Encounter for well woman exam) Start:11-Jun-2021 Instruction Type:Provider Instructions for Treatment How to Access Health Informa tion Online using Patient Portal and [employer] Indication:Well woman exam (Renamed from Encounter for well woman exam) Start:11-Jun-2021 Instruction Type:Patient Education [facility]; [facility] Work Phone: [email or web address]* Name Dates Details How to Access Health Informa tion Online using Patient Portal and [employer] Apps Indication:Non-smoker Start:30-Apr-2023 Instruction Type:Patient Education Patient Instructions Indication:Non-smoker Start:30-Apr-2023 Instruction Type:Provider Instructions for Treatment Patient Instructions Indication:BMI 34.0-34.9,adult Start:31-Aug-2022 Instruction Type:Provider Instructions for Treatment How to Access Health Informa tion Online using Patient Portal and [employer] Apps Indication:BMI 34.0-34.9,adult Start:31-Aug-2022 Instruction Type:Patient Education Patient Instructions Indication:BMI 34.0-34.9,adult Start:03-Jul-2022 Instruction Type:Provider Instructions for Treatment How to Access Health Informa tion Online using Patient Portal and [employer] Apps Indication:BMI 34.0-34.9,adult Start:03-Jul-2022 Instruction Type:Patient Education Patient Instructions Indication:Well woman exam (Renamed from Encounter for well woman exam) Start:11-Jun-2021 Instruction Type:Provider Instructions for Treatment How to Access Health Informa tion Online using Patient Portal and [employer] Indication:Well woman exam (Renamed from Encounter for well woman exam) Start:11-Jun-2021 Instruction Type:Patient Education [facility]; [facility] Work Phone: Instructions* Name Dates Details How to Access Health Informa tion Online using Patient Portal and [employer] Apps Indication:Non-smoker Start:30-Apr-2023 Instruction Type:Patient Education Patient Instructions Indication:Non-smoker Start:30-Apr-2023 Instruction Type:Provider Instructions for Treatment Patient Instructions Indication:BMI 34.0-34.9,adult Start:31-Aug-2022 Instruction Type:Provider Instructions for Treatment How to Access Health Informa tion Online using Patient Portal and [employer] Apps Indication:BMI 34.0-34.9,adult Start:31-Aug-2022 Instruction Type:Patient Education Patient Instructions Indication:BMI 34.0-34.9,adult Start:03-Jul-2022 Instruction Type:Provider Instructions for Treatment How to Access Health Informa tion Online using Patient Portal and [employer] Indication:BMI 34.0-34.9,adult Start:03-Jul-2022 Instruction Type:Patient Education Patient Instructions Indication:Well woman exam (Renamed from Encounter for well woman exam) Start:11-Jun-2021 Instruction Type:Provider Instructions for Treatment How to Access Health Informa tion Online using Patient Portal and [employer] Apps Indication:Well woman exam (Renamed from Encounter for well woman exam) Start:11-Jun-2021 Instruction Type:Patient Education [facility]; [facility] Work Phone: instructions* Name Dates Details How to Access Health Informa tion Online using Patient Portal and [employer] Apps Indication:Non-smoker Start:30-Apr-2023 Instruction Type:Patient Education Patient Instructions Indication:Non-smoker Start:30-Apr-2023 Instruction Type:Provider Instructions for Treatment Patient Instructions Indication:BMI 34.0-34.9,adult Start:31-Aug-2022 Instruction Type:Provider Instructions for Treatment How to Access Health Informa tion Online using Patient Portal and [employer] Indication:BMI 34.0-34.9,adult Start:31-Aug-2022 Instruction Type:Patient Education Patient Instructions Indication:BMI 34.0-34.9,adult Start:03-Jul-2022 Instruction Type:Provider Instructions for Treatment How to Access Health Informa tion Online using Patient Portal and [employer] Indication:BMI 34.0-34.9,adult Start:03-Jul-2022 Instruction Type:Patient Education Patient Instructions Indication:Well woman exam (Renamed from Encounter for well woman exam) Start:11-Jun-2021 Instruction Type:Provider Instructions for Treatment How to Access Health Informa tion Online using Patient Portal and [employer] Indication:Well woman exam (Renamed from Encounter for well woman exam) Start:11-Jun-2021 Instruction Type:Patient Education [facility]; [facility] Work Phone: reason for referral (narrative)No reason for [facility] Work Phone: Family History No Family History Records FoundUnknown Family Member Name Dates Details Brother 1 Comments:hypothyroidism, MILAGROS H, DM II, RA, CAD/stents 40's Status:Active Brother 2 Status:Active Father Comments:Diabetes I, hx MA a ge 41, smoker, CAD 60 Status:Active [...] Brother 2 Status:Active Father Comments:Diabetes I, hx MA a ge 41, smoker, CAD 60 Status:Active [...] Brother 2 Status:Active Father Comments:Diabetes I, hx MA a ge 41, smoker, CAD 60 Status:Active [...] Brother 2 Status:Active Father Comments:Diabetes I, hx MA a ge 41, smoker, CAD 60 Status:Active [...] Brother 2 Status:Active Father Comments:Diabetes I, hx MA a ge 41, smoker, CAD 60 Status:Active [...] Brother 2 Status:Active Father Comments:Diabetes I, hx MA a ge 41, smoker, CAD 60 Status:Active [...] Brother 2 Status:Active Father Comments:Diabetes I, hx MA a ge 41, smoker, CAD 60 Status:Active [...] Brother 2 Status:Active Father Comments:Diabetes I, hx MA a ge 41, smoker, CAD 60 Status:Active [...] Brother 2 Status:Active Father Comments:Diabetes I, hx MA a ge 41, smoker, CAD 60 Status:Active [...] Brother 2 Status:Active Father Comments:Diabetes I, hx MA a ge 41, smoker, CAD 60 Status:Active [...] Brother 2 Status:Active Father Comments:Diabetes I, hx MA a ge 41, smoker, CAD 60 Status:Active [...] Brother 2 Status:Active Father Comments:Diabetes I, hx MA a ge 41, smoker, CAD 60 Status:Active [...] 2 Comments:OA Status:Active Father Comments:Diabetes II, hx MA age 41, smoker, CAD 60 Status:Active Maternal Grandfather Comments:Stroke Status:Active Maternal Grandmother Comments:CAD Status:Active Mother Comments:hyperthyroid, HTN, anemia, alive and live alone. rBenda Status:Active Non-Contributory Family Hist ory Status:Active Sister 1 Comments:hypothyroidism, con torted internal carotid Status:Active Sister 2 Comments:ear tumor Status:Active Unknown Family Member Name Dates Details Brother 1 Comments:hypothyroidism, MILAGROS H, DM II, RA, CAD/stents 40's Status:Active Brother 2 Comments:OA Status:Active Father Comments:Diabetes II, hx MA age 41, smoker, CAD 60 Status:Active Maternal [...] 2 Comments:OA Status:Active Father Comments:Diabetes II, hx MA age 41, smoker, CAD 60 Status:Active Maternal [...] 2 Comments:OA Status:Active Father Comments:Diabetes II, hx MA age 41, smoker, CAD 60 Status:Active Maternal Grandfather Comments:Stroke Status:Active Maternal Grandmother Comments:CAD Status:Active Mother Comments:hyperthyroid, HTN, anemia, alive and live alone. Brenda Status:Active Non-Contributory Family Hist ory Status:Active Sister 1 Comments:hypothyroidism, con torted internal carotid Status:Active Sister 2 Comments:ear tumor Status:Active Advance Directives No Advanced Directives Records Found Name Dates Details Immunization Registry [place] - Effective on 04/17/2021. Expiration date unspecified Effective:17-Apr-2021 Name Dates Details Immunization Registry [place] - Effective on 04/17/2021. Expiration date unspecified Effective:17-Apr-2021 Name Dates Details Immunization Registry [place] - Effective on 04/17/2021. Expiration date unspecified Effective:17-Apr-2021 Name Dates Details Immunization Registry [place] - Effective on 04/17/2021. Expiration date unspecified Effective:17-Apr-2021 Name Dates Details Immunization Registry [place] - Effective on 04/17/2021. Expiration date unspecified Effective:17-Apr-2021 Name Dates Details Immunization Registry [place] - Effective on 04/17/2021. Expiration date unspecified Effective:17-Apr-2021 Name Dates Details Immunization Registry [place] - Effective on 04/17/2021. Expiration date unspecified Effective:17-Apr-2021 Name Dates Details Immunization Registry [place] - Effective on 04/17/2021. Expiration date unspecified Effective:17-Apr-2021 Name Dates Details Immunization Registry [place] - Effective on 04/17/2021. Expiration date unspecified Effective:17-Apr-2021 Name Dates Details Immunization Registry [place] - Effective on 04/17/2021. Expiration date unspecified Effective:17-Apr-2021 Name Dates Details Immunization Registry [place] - Effective on 04/17/2021. Expiration date unspecified Effective:17-Apr-2021 Name Dates Details Immunization Registry [place] - Effective on 04/17/2021. Expiration date unspecified Effective:17-Apr-2021 Name Dates Details Immunization Registry [place] - Effective on 04/17/2021. Expiration date unspecified Effective:17-Apr-2021 Summary Purpose Chief Complaint and Reason for Visit Chief Complaint Admit Date ELEVATED LFT'S December 30, 2024 2:48 pm SCREENING January 08, 2025 7:22 am Reason for Visit Admit Date Abnormal LFTs (liver function tests) Alberto 2024 2:48pm Liver hemangioma December 30, 2024 2:48 pm Metabolic dysfunction-associ ated steatotic liver disease (MASLD) December 30, 2024 2:48pm Chief Complaint PRE OP PRE OP Chief Complaint PRE OP PRE OP ELEVATED LIVER ENZYMES HEMATURIA Chief Complaint SCREENING Liver disease, unspecified Chief Complaint Admit Date ELEVATED LFT'S December 30, 2024 2:48 pm Reason for Referral Specialty Diagnoses / Procedures Referred By Vinod t Referred To Contact Radiology Diagnoses Family history of ischemic heart disease and other diseases of the circulatory system Procedures CT cardiac scoring wo IV contrast Joanne Patino MD [address] [facility] [address] [place] [address] Referral ID Status Reason Start Date Expiration Date Visits Requested Visits Authorized [id number] Authorized Perform Procedure 3 05/07/2024 1 1 Specialty Diagnoses / Procedures Referred By Contac t Referred To Contact Radiology Diagnoses Family history of ischemic heart disease and other diseases of the circulatory system Procedures CT cardiac scoring wo IV contrast Joanne Patino MD [address] [facility] [address] [place] [address] Additional Source Comments INFORMATION SOURCE (unrecogn ized section and content) DATE CREATED AUTHOR 09/09/2021 [facility] DATE CREATED AUTHOR AUTHOR'S ORGANIZ ATION 09/01/2022 [facility] DATE CREATED AUTHOR AUTHOR'S ORGANIZ ATION 03/30/2024 [facility] DATE CREATED AUTHOR AUTHOR'S ORGANIZ ATION 05/05/2025 [facility] Care Teams (unrecognized sec tion and content) Team Status: Active Member Role Status Dates No Primary Care Physician Family Provider Active Dr. Joanne Patino MD Primary Care Provider Active Team Status: Active Member Role Status Dates Dr. Joanne Patino MD Primary Care Provider Active Dr. Yovanny Paez MD Attending Provider Active Dr. Alejandro Rodgers DO Referring Provider Active Team Status: Inactive Member Role Status Dates Dr. Joanne Patino MD Primary Care Provider Active Dr. Alejandro Rodgers DO Attending Provider Active Team Status: Inactive Member Role Status Dates Dr. Joanne Patino MD Primary Care Provi rhona, Attending Provider, Referring Provider Active Team Status: Active Member Role Status Dates Dr. Joanne Patino MD Primary Care Provi rhona, Attending Provider, Referring Provider Active Team Status: Active Member Role Status Dates Dr. Joanne Patino MD Primary Care Provider Active Self Referred Attending Provider Active Team Status: Active Member Role Status Dates Dr. Joanne Patino MD Primary Care Provider Active Team Status: Inactive Member Role Status Dates Dr. Joanne Patino MD Primary Care Provider Active Start: December 30, 2024 End: December 30, 2024 Dr. Joanne Patino MD Referring Provider Active Start: December 30, 2024 End: December 30, 2024 Dr. Merlin Palacio MD Attending Provider Active Start: December 30, 2024 End: December 30, 2024 Team Status: Inactive Member Role Status Dates Dr. Joanne Patino MD Primary Care Provider Active Start: January 08, 2025 End: January 08, 2025 Dr. Joanne Patino MD Attending Provider Active Start: January 08, 2025 End: January 08, 2025 Dr. Joanne Patino MD Referring Provider Active Start: January 08, 2025 End: January 08, 2025 Goals (unrecognized section and content) Goals may be documented in a n alternate sectionGoals may be documented in an alternate sectionGoals may be documented in an alternate sectionGoals may be documented in an alternate sectionGoals may be documented in an alternate sectionGoals may be documented in an alternate section Reason for Visit (unrecogniz ed section and content) Specialty Diagnoses / Procedures Referred By Ismaac t Referred To Contact Radiology Diagnoses Family history of ischemic heart disease and other diseases of the circulatory system Procedures CT cardiac [place] [address] [place] [address] [address] [place] [address] Referral ID Status Reason Start Date Expiration Date Visits Requested Visits Authorized [id number] Authorized Perform Procedure 3 05/07/2024 1 1 Specialty Diagnoses / Procedures Referred By Vinod colelo Referred To Contact Radiology Diagnoses Family history of ischemic heart disease and other diseases of the circulatory system Procedures CT cardiac scoring wo IV contrast Joanne Patino MD [address] [place] [address] [address] [place] [address] FOR RECORDS PERTAINING TO PATIENTS WHO ARE [...] ON THE PRIMARY CLINICAL RECORDS. [facility] [employer] provides no warranty or guarantee of the accuracy or completeness of information in this document.
--- NOTE | 2025-05-13 07:38 | US_ITS ---
PROCEDURE: ABD LIMITED W/ ELASTOGRAPHY REASON FOR EXAM: ABNORMAL LIVER CHEMISTRY COMPARISON: None. TECHNIQUE: Procedure Code: [id number] Modality: US Procedure: ABD LIMITED W/ ELASTOGRAPHY Right upper quadrant abdominal ultrasound. [facility] shear wave elastography for non-invasive assessment of liver tissue stiffness. [place] EPI[employer] Elite. FINDINGS: LIVER: Size: Unremarkable Length: 16.6 cm Echotexture: Normal Contour: Normal Lesions: None identified Elastography: EQI Med: 5.3 kPa EQI Med Cj: 1.33 m/s IQR/Med: 11.2 %* GALLBLADDER: Surgically absent. COMMON BILE DUCT: Dilated measuring up to 8.3 mm. This is normal for the post cholecystectomy state.. PANCREAS: Visualized portions are unremarkable. The distal body and tail are obscured by bowel gas. Visualized portions of the right kidney are unremarkable. No right upper quadrant ascites. Spleen: The spleen measures 10.4 cm 4.5 cm 4.4 cm. No focal lesion is seen. US/ABD Limited w/ Elastography IMPRESSION: NO TO MILD HEPATIC FIBROSIS Status post cholecystectomy. Reference Values: SRU <1.37 m/s (5.7kPa): No to mild fibrosis 1.37 m/s - 2.2 m/s: Moderate to severe fibrosis >2.2 m/s (15kPa): Significant fibrosis / cirrhosis METAVIR Score F2 or higher: 1.34 m/s (5.7kPa) F3 or higher: 1.55 m/s (7.3kPa) F4: 1.80 m/s (10kPa) * If the IQR/Med is >30%, the variance in the measurements is a large and the a ccuracy of the measurement may be in question. Reading Location: [place] [address]
[2025-05-13 08:07] LABS: Hematocrit 36.4 % (37-47); Hemoglobin 12.3 g/dL (12.0-15.0); Immature Granulocytes Count 0.010 X10^3/uL (0.0-0.0); Mean Corp Hgb Conc 33.8 g/dL (32-36); Mean Corpuscular Volume 93.1 fL (81-99); Mean Platelet Vol. 10.8 fl (6.2-12.0); NRBC Flagged by Analyzer 0 % (0-5); Platelet Count 210 K/mm3 (150-450); RBC Distribution Width CV 12.6 % (11.6-14.6); RBC Distribution Width SD 43.0 fl (35.1-43.9); Red Blood Count 3.91 M/mm3 (4.2-5.4); White Blood Count 5.3 K/mm3 (4.4-11.0)
[2025-05-13 08:13] LABS: Prothrombin Time (Protime)PT. 13.5 SECONDS (11.7-14.9)
[2025-05-13 09:11] LABS: AST(SGOT) 55 U/L (<=31); Alanine Aminotransfer ALT/SGPT 64 U/L (<=34); Albumin, Serum 4.1 g/dL (3.4-4.8); Alkaline Phosphatase 94 U/L (35-104); Anion Gap 10 (5-15); BUN 15 mg/dL (4-19); BUN/Creat Ratio 14.3 RATIO (10-20); Bilirubin, Direct 0.27 mg/dL (0.00-0.30); Calcium,Total 9.0 mg/dL (7.6-11.0); Carbon Dioxide 26.3 mmol/L (21.0-32.0); Chloride 104 mmol/L (98-108); Cholesterol 141 mg/dL (<=200); Ferritin 36 ng/mL (22-378); Globulin 2.9 g/dL (2.2-4.2); Glucose 91 mg/dL (70-99); Low Density Lipoprotein Calc. 50 mg/dL; Potassium 4.2 mmol/L (3.3-5.1); Triglycerides 76 mg/dL; Very Low Density Lipoprotein 15 mg/dL (5-40); cholesterol:hdl ratio screen 1.84
[2025-05-13 09:12] LABS: CRP < 3.00 mg/L (0.0-3.0)
[2025-05-14 14:09] LABS: ANTINUCLEAR ANTIBODIES DIRECT Negative (Negative); Anti-Smooth Muscle ABS 6 Units (0-19); HEPATITIS B SURFACE AG Negative (Negative); Hep C Antibodies Non Reactive (Non Reactive)
== END | disposition home or self-care (01) ==
PROVIDERS: PCP Internal Medicine; Referring Provider Internal Medicine; Visit Provider Internal Medicine
DX: K76.0 Fatty (change of) liver, not elsewhere classified (principal); D18.03 Hemangioma of intra-abdominal structures; R79.89 Other specified abnormal findings of blood chemistry
CPT/HCPCS: 36415; 76705; 76981; 80053; 80061; 80074; 82105; 82248; 82728; 83036; 83516; 85025; 85610; 86038; 86140; 86225; 86706